=== PATIENT | female | born 1960 | race Caucasian/White ===

== ENCOUNTER → 2016-11-29 | Outpatient (CLI) | payer OTHER ==
[~2016-11-29] MED LIST: ALBUAER19 INH; ASPI81TA21 PO; ATV5 PO; CLX20 PO; CMDUNK PO; CYAN10005 PO; DICL1GEL28; DOXY100C PO; FURO-85 PO; GLC500 PO; METH-307 PO; TOPI100T20 PO; TRAM200T16 PO
--- NOTE | 2016-11-29 11:11 | DIAGNOSTIC IMAGING REPORT ---
MRI OF THE BRAIN WITHOUT CONTRAST CLINICAL HISTORY: Worsening headache. Migraine with aura COMPARISON STUDY: Noncontrast head CT dated 05/29/2011 FINDINGS: Sagittal T1, axial diffusion, proton density and T2 weighted axial, coronal FLAIR, and axial T1-weighted images were acquired. The patient was imaged under 0.7 [place] open MRI scanner. No intra or extra-axial mass lesions are visualized Axial diffusion-weighted images reveal no evidence of acute or subacute infarction. There is no evidence of ventricular dilatation. Proton density T2-weighted and FLAIR images reveal scattered foci of increased T2 signal within the white matter, likely on a small vessel basis. There are prominent bilateral perivascular spaces. There are no abnormal flow voids. The study is limited from a technical standpoint due to motion artifact. IMPRESSION: 1. Somewhat limited study from a technical standpoint 2. No evidence of acute or subacute infarction 3. No intracranial masses identified in this noncontrast study 4. Mild foci of increased T2 signal within the white matter likely on a small vessel basis Electronically signed by: Jimbo Lakhani M.D. 11/29/2016 11:09 AM Dictated Date/Time: 11/29/2016 11:06 AM
== END | disposition home or self-care (01) ==
LOC: C.OPENMRI 09:13
PROVIDERS: ATTEND Psychiatry & Neurology Neurology
DX: G43.109 Migraine with aura, not intractable, without status migrainosus (principal)

== ENCOUNTER → 2016-12-04 | Outpatient (CLI) | payer OTHER ==
[2016-12-04 10:08] LABS: BASO % 0.2 %; BASO ABS # 0.01 K/uL (0-0.2); COMPLETE YES; EOS % 2.7 %; HEMATOCRIT 38.6 % (37-47); IG% 0.2 %; LYMPH % 26.5 %; LYMPH ABS # 1.08 K/uL (1.2-3.4); MEAN CELL VOLUME 89.4 fL (80-100); MEAN CORPUSCULAR HEMOGLOBIN 28.9 pg (25-34); MEAN CORPUSCULAR HGB CONC 32.4 g/dl (32-36); MEAN PLATELET VOLUME 8.8 fL (7.4-10.4); MONO % 7.9 %; NEUT % 62.5 %; PLATELET COUNT 168 K/uL (130-400); RED BLOOD COUNT 4.32 M/uL (4.2-5.4); WHITE BLOOD COUNT 4.07 K/uL (4.8-10.8)
[2016-12-04 10:17] LABS: ESTIMATED AVERAGE GLUCOSE 111 mg/dl; HA1C FLAG Normal (Normal)
[2016-12-04 10:45] LABS: CALCIUM 9.3 mg/dl (8.5-10.1)
[2016-12-04 10:49] LABS: ALT/SGPT 35 U/L (12-78); BLOOD UREA NITROGEN 11 mg/dl (7-18); BUN/CREATININE RATIO 15.8 (10-20); CARBON DIOXIDE 28 mmol/L (21-32); CHLORIDE 105 mmol/L (98-107); CHOLESTEROL 181 mg/dl (0-200); CREATININE 0.69 mg/dl (0.60-1.20); GLUCOSE 110 mg/dl (70-99); POTASSIUM 4.1 mmol/L (3.5-5.1); SODIUM 141 mmol/L (136-145); TRIGLYCERIDES 132 mg/dl (0-150); VERY LOW DENSITY LIPOPROT CALC 26 mg/dl
[2016-12-04 10:58] LABS: ALB/GLOB RATIO 0.9 (0.9-2); ALKALINE PHOSPHATASE 113 U/L (45-117); AST/SGOT 18 U/L (15-37); CHOLESTEROL/HDL RATIO 3.7; FERRITIN 63.3 ng/ml (8.0-388.0); HDL CHOLESTEROL 49 mg/dl; LDL CHOLESTEROL CALCULATED 106 mg/dl
[2016-12-04 11:04] LABS: RATIO 25.7 mcg/mg (0-30.0)
== END | disposition home or self-care (01) ==
LOC: C.LAB 09:07
PROVIDERS: ATTEND Nurse Practitioner Family
DX: E11.9 Type 2 diabetes mellitus without complications (principal); E53.8 Deficiency of other specified B group vitamins; E66.01 Morbid (severe) obesity due to excess calories; E01.0 Iodine-deficiency related diffuse (endemic) goiter; D50.9 Iron deficiency anemia, unspecified; E55.9 Vitamin D deficiency, unspecified; R25.2 Cramp and spasm; Z13.220 Encounter for screening for lipoid disorders

== ENCOUNTER → 2017-11-07 | Outpatient (CLI) | payer OTHER ==
[2017-11-07 12:53] LABS: BASO % 0.1 %; BASO ABS # 0.01 K/uL (0-0.2); EOS % 2.5 %; EOS ABS # 0.17 K/uL (0-0.5); HEMATOCRIT 38.9 % (37-47); HEMOGLOBIN 12.9 g/dL (12.0-16.0); IG# 0.02 K/uL (0.00-0.02); LYMPH % 14.7 %; MEAN CELL VOLUME 88.6 fL (80-100); MEAN CORPUSCULAR HEMOGLOBIN 29.4 pg (25-34); MEAN CORPUSCULAR HGB CONC 33.2 g/dl (32-36); MEAN PLATELET VOLUME 8.7 fL (7.4-10.4); MONO % 5.4 %; MONO ABS # 0.37 K/uL (0.11-0.59); NEUT ABS # 5.24 K/uL (1.4-6.5); PLATELET COUNT 202 K/uL (130-400); RED CELL DISTRIBUTION WIDTH CV 14.8 % (11.5-14.5); RED CELL DISTRIBUTION WIDTH SD 47.6 fL (36.4-46.3); WHITE BLOOD COUNT 6.81 K/uL (4.8-10.8)
[2017-11-07 13:14] LABS: HEMOGLOBIN A1C 5.6 % (4.5-5.6)
[2017-11-07 13:31] LABS: ALBUMIN 3.5 gm/dl (3.4-5.0); ALT/SGPT 25 U/L (12-78); BLOOD UREA NITROGEN 10 mg/dl (7-18); CARBON DIOXIDE 32 mmol/L (21-32); CHOLESTEROL 170 mg/dl (0-200); CREATININE 0.84 mg/dl (0.60-1.20); GLUCOSE 101 mg/dl (70-99); POTASSIUM 4.7 mmol/L (3.5-5.1); SODIUM 136 mmol/L (136-145)
[2017-11-07 13:35] LABS: ALKALINE PHOSPHATASE 117 U/L (45-117); AST/SGOT 14 U/L (15-37); LDL CHOLESTEROL CALCULATED 98 mg/dl; TOTAL PROTEIN 7.7 gm/dl (6.4-8.2)
== END | disposition home or self-care (01) ==
LOC: C.LABBFT 09:43
PROVIDERS: ATTEND Nurse Practitioner Family
DX: I10 Essential (primary) hypertension (principal); E11.9 Type 2 diabetes mellitus without complications; E66.01 Morbid (severe) obesity due to excess calories; D50.9 Iron deficiency anemia, unspecified; E55.9 Vitamin D deficiency, unspecified

== ENCOUNTER 2021-06-01 18:47 | Inpatient (IN) ==
--- NOTE | 2021-06-01 20:12 | Emergency Department Note ---
Impression & Plan Open fracture, Ankle fracture, Ankle dislocation ED Provider Note NAME: CALVIN QUACH AGE: 60 SEX: F : 1960 ARRIVES VIA: Walk-In INFORMANT: Patient ED PROVIDER(S): Sascha Pa DO CHIEF COMPLAINT: Right ankle pain HPI: Patient is a morbidly obese 60-year-old female who presents the ER for right ankle pain. She had surgery performed on her right ankle about 3 weeks ago. Surgery was done by Dr. Patel. She believes when she was getting into the car she felt like her ankle moved and has been having tingling and numbness in her foot since then. She was in a cast per her own report which was removed at Dr. Patel's office today. They obtained x-rays and saw the dislocation in the open wound over the right lateral ankle. Dr. Patel called Dr. Desai as he is leaving town Dr. Desai was agreeable to see her and take her to the OR this week. She was referred in for admission. She denies any headache or change in vision. No chest pain or shortness of breath. No nausea vomiting or diarrhea. No other exacerbating or remitting factors. Pain is constant in that right ankle. ROS: See above HPI for pertinent positives & negatives. A total of 10 systems reviewed and were otherwise negative. PAST MEDICAL HISTORY:See Below PAST SURGICAL HISTORY:See Below FAMILY HISTORY:See Below SOCIAL HISTORY:See Below HOME MEDICATIONS:See Below ALLERGIES:See Below VITALS:See Below PHYSICAL EXAMINATION: GENERAL: Sitting up in bed, alert, well appearing, well nourished, no distress, non-toxic EYE EXAM: normal conjunctiva. PERRL and EOM's grossly intact. OROPHARYNX: mucous membranes are moist LUNGS: Clear to auscultation. Normal chest wall mechanics HEART: no murmurs, S1 normal and S2 normal ABDOMEN: abdomen soft, non-tender, normo-active bowel sounds, no masses, no rebound or guarding. UPPER EXTREMITIES: upper extremities are grossly normal. LOWER EXTREMITIES: No tenderness of the right hip or knee. Open wound over right lateral malleolus which tracks down to the bone with serous sanguinous drainage. Wounds over the medial ankle as well which are superficial. Ankle is rotated laterally and displaced. DPs intact. Able to wiggle toes. Diminished sensation in the right foot walking boot was in place but not supporting foot. NEURO EXAM: Normal sensorium, cranial nerves II-XII grossly intact, normal speech, no gross weakness of arms. MEDICAL DECISION MAKING: Patient is a 60-year-old female as discussed above referred in by orthopedics for the OR. IV was established blood work was obtained. Labs show no significant leukocytosis or anemia. BMP along with LFTs bilirubin was unremarkable. Covid was negative. Patient was sent in by Dr. Patel to be admitted to internal medicine to be taken to the OR by Dr. Desai likely later this week. Wounds were cleaned with Betadine and Xeroform gauze was placed over top. She was given IV Ancef. Discussed with Dr. Desai who is agreeable with t [facility] and will take the patient to the OR on Sunday. Foot was dislocated laterally and this was reduced by myself and splinted at bedside by myself. Patient tolerated this well. Discussed with Dr. Lowery admitted to internal medicine. She was given IV fentanyl. Triage Nursing notes reviewed. Limited review of prior medical records performed Vital Signs: reviewed and remarkable for no significant abnormalities Differential diagnosis: Fracture, subluxation, dislocation, contusion, ligamentous injury, neurovascular, compartment syndrome, rhabdomyolysis, as well as other pathologies. ER treatment provided: See below Diagnostics interpreted by me: Cardiac Monitoring: An order was placed for continuous cardiac monitoring. The monitor shows a rate of 70 with sinus rhythm. Laboratory studies: As stated above and show below. Imaging studies: X-ray of the right ankle per my read 2 view shows improved alignment of the talus with obvious fracture of the distal fibula present. Consultation(s): Discussed with Dr. Desai as stated above Discussed with Kalin Colmenares for further evaluation Procedures: PROCEDURE#1 Fracture/dislocation reduction: Location: Right ankle Patient was given IV fentanyl. Verbal consent was obtained. Traction was placed on the right ankle while pushing medially over the lateral malleolus. Significantly improved alignment was obtained. Patient tolerated the procedure well. Paresthesias were present prior to the procedure and following the procedure. Good cap refill. Procedure #2 Splint placement: Right ankle Splint: Posterior splint with a saddle Indication: Right fracture/dislocation of the right ankle Ortho-Glass splint was applied by the myself. Neurovascular status reassessed by myself status post splint placement and was intact. Critical Care: None Past Med/Surg History Medical History Anemia hx Anxiety Asthma Depression Endometriosis hx Esophageal reflux Hereditary coagulation factor deficiency Hx of migraines Hx of renal calculi Hx pulmonary embolism ~1990, on Xarelto Lupus anticoagulant disorder Morbid obesity with BMI of 60.0-69.9, adult Prothrombin gene mutation Pure hypercholesterolemia Per records, pt denies Sleep apnea Non-compliant with CPAP Vertigo hx Surgical History H/O wrist surgery History of colonoscopy History of cystoscopy with stent History of esophagogastroduodenoscopy (EGD) History of kidney surgery Hx of hysterectomy [place] and BSO Family History Sister Cancer Brain tumor Thyroid disease Father Myocardial infarction Heart disease Mother Thyroid disease Family/Other Hypertension Other Diabetes Gallbladder disease Lung disease Seizure Denies family history of Ovarian cancer Prostate cancer Breast cancer Colorectal cancer Social History Smoking Status: Never smoker Second Hand Exposure: Yes ( A CHILD); Hx Alcohol Use: No Hx Substance Use: No Preferred Language: Sudanese Communication Ability: Effective Visual Impairment: No Limitations Hearing Ability: Normal Consumer Relations Complaint Clerk Required: No Beliefs That Will Affect Care: None marital status: Current Living Situation: Spouse current occupational status: unemployed Other Information That Helps Us Care for You: No Feels Safe at Home: Yes Safety Concerns: Feels Safe At This Time Childhood Exposure to Second-Hand Smoke: Yes Dental Care, Regularly: Yes Physical Activity Frequency: 3-4 Times per Week Seatbelt Use: always Sunscreen Use: Yes Assistive Devices: Cane, CPAP, Glasses and Wheelchair Allergies Allergies Allergy/AdvReac Type Severity Reaction Status Date / Time iron AdvReac Unknown Does not Verified 06/01/21 20:47 tolerate oral (tolerates infusion) Home Meds Home Medications Medication Instructions Recorded Confirmed magnesium 250 mg tablet 250 mg PO QAM 02/24/19 06/01/21 multivitamin (Daily Multi-Vitamin) 1 tab PO QAM 02/24/19 06/01/21 cyanocobalamin (vitamin B-12) 1,000 mcg PO QAM tab 03/19/19 06/01/21 1,000 mcg tablet amitriptyline 25 mg tablet 50 mg PO HS 05/18/21 06/01/21 prochlorperazine maleate 10 mg 10 mg PO Q6H PRN 05/18/21 06/01/21 tablet (Compazine) propranolol 160 mg capsule,24 160 mg PO QAM 05/18/21 06/01/21 hr,extended release propranolol 60 mg capsule,24 60 mg PO QAM 05/18/21 06/01/21 hr,extended release rivaroxaban 20 mg tablet (Xarelto) 20 mg PO HS 05/18/21 06/01/21 Previous Rx's Medication Instructions Recorded cholecalciferol (vitamin D3) 1,250 50,000 units PO WEEKLY #12 cap 11/19/19 mcg (50,000 unit) capsule citalopram 40 mg tablet 40 mg PO QPM #90 tab 12/15/20 rimegepant 75 mg disintegrating 75 mg PO DAILY PRN #8 tab 02/28/21 tablet (Nurtec ODT) buspirone 10 mg tablet 10 mg PO BID #180 tab 04/26/21 methocarbamol 500 mg tablet 500 mg PO BID PRN #60 tab 05/12/21 lorazepam 0.5 mg tablet 0.5 mg PO TID PRN 14 Days #42 tab 05/18/21 oxycodone-acetaminophen 5 mg-325 1 tab PO Q6H PRN #20 tab 05/20/21 mg tablet (Percocet) hydroxyzine HCl 50 mg tablet 50 mg PO HS PRN #30 tab 06/01/21 Results & Data (ED) Vital Signs Vital Signs - 24 hr 06/01/21 18:58 06/01/21 20:48 Temperature 36.6 C Temperature Source Temporal Artery Scan Pulse Rate 78 Pulse Rate [Left] 64 Respiratory Rate 20 20 Respiratory Effort / Characteristics Non-Labored Spontaneous Respiratory Depth Normal Blood Pressure 126/82 Blood Pressure [Left Arm] 141/68 H Blood Pressure Mean 96 Blood Pressure Mean [Left Arm] 92 Pulse Oximetry 97 96 Oxygen Delivery Method Room Air Room Air Sepsis New/Unexplained Change in Mental Status N/A Sepsis Action Taken by Nursing No Action Required Laboratory Data Result diagrams: 06/01/21 20:42 06/01/21 20:42 Lab Results 06/01/21 06/01/21 06/01/21 Range/Units 20:42 20:42 20:42 WBC 10.74 (4.8-10.8) K/uL RBC 4.73 (4.2-5.4) M/uL Hgb 13.1 (12.0-16.0) g/dL Hct 40.3 (37-47) % MCV 85.2 (80-100) fL MCH 27.7 (25-34) pg MCHC 32.5 (32-36) g/dL RDW Std Deviation 46.3 (36.4-46.3) fL RDW Coeff of Moises 15.0 H (11.5-14.5) % Plt Count 251 (130-400) K/uL MPV 8.6 (7.4-10.4) fL Immature Gran % (Auto) 0.3 % Neut % (Auto) 84.7 % Lymph % (Auto) 8.0 % Hanson % (Auto) 5.9 % Eos % (Auto) 0.9 % Baso % (Auto) 0.2 % Neut # (Auto) 9.10 H (1.4-6.5) K/uL Lymph # (Auto) 0.86 L (1.2-3.4) K/uL Hanson # (Auto) 0.63 H (0.11-0.59) K/uL Eos # (Auto) 0.10 (0-0.5) K/uL Baso # (Auto) 0.02 (0-0.2) K/uL Immature Gran # (Auto) 0.03 H (0.00-0.02) K/uL Sodium 137 (136-145) mmol/L Potassium 4.0 (3.5-5.1) mmol/L Chloride 102 (98-107) mmol/L Carbon Dioxide 28 (21-32) mmol/L Anion Gap 6.0 (3-11) BUN 12 (7-18) mg/dl Creatinine 0.68 (0.6-1.2) mg/dl Est Cr Clr Drug Dosing Not Reportable Est GFR ( Amer) 111.0 ml/min Est GFR (Non-Af Amer) 95.7 ml/min BUN/Creatinine Ratio 18.1 (10-20) Glucose 134 H (70-99) mg/dl Calcium 9.8 (8.5-10.1) mg/dl Total Bilirubin 1.0 (0.2-1) mg/dl AST 10 L (15-37) U/L ALT 17 (12-78) U/L Alkaline Phosphatase 164 H (45-117) U/L Total Protein 7.3 (6.4-8.2) gm/dl Albumin 3.0 L (3.4-5.0) gm/dl Globulin 4.3 H (2.5-4.0) gm/dl Albumin/Globulin Ratio 0.7 L (0.9-2) COVID-19 Eval Order Covid19 at [facility] SARS-CoV-2 (PCR) (Negative) 06/01/21 Range/Units 20:42 WBC (4.8-10.8) K/uL RBC (4.2-5.4) M/uL Hgb (12.0-16.0) g/dL Hct (37-47) % MCV (80-100) fL MCH (25-34) pg MCHC (32-36) g/dL RDW Std Deviation (36.4-46.3) fL RDW Coeff of Moises (11.5-14.5) % Plt Count (130-400) K/uL MPV (7.4-10.4) fL Immature Gran % (Auto) % Neut % (Auto) % Lymph % (Auto) % Hanson % (Auto) % Eos % (Auto) % Baso % (Auto) % Neut # (Auto) (1.4-6.5) K/uL Lymph # (Auto) (1.2-3.4) K/uL Hanson # (Auto) (0.11-0.59) K/uL Eos # (Auto) (0-0.5) K/uL Baso # (Auto) (0-0.2) K/uL Immature Gran # (Auto) (0.00-0.02) K/uL Sodium (136-145) mmol/L Potassium (3.5-5.1) mmol/L Chloride (98-107) mmol/L Carbon Dioxide (21-32) mmol/L Anion Gap (3-11) BUN (7-18) mg/dl Creatinine (0.6-1.2) mg/dl Est Cr Clr Drug Dosing Est GFR ( Amer) ml/min Est GFR (Non-Af Amer) ml/min BUN/Creatinine Ratio (10-20) Glucose (70-99) mg/dl Calcium (8.5-10.1) mg/dl Total Bilirubin (0.2-1) mg/dl AST (15-37) U/L ALT (12-78) U/L Alkaline Phosphatase (45-117) U/L Total Protein (6.4-8.2) gm/dl Albumin (3.4-5.0) gm/dl Globulin (2.5-4.0) gm/dl Albumin/Globulin Ratio (0.9-2) COVID-19 Eval Order SARS-CoV-2 (PCR) NEGATIVE (Negative) Administered Medications Discontinued Medications Cefazolin Sodium (Cefazolin 2,000 Mg/15 Ml Iv Push) Confirm Administered Dose 2,000 mg IV .STK-MED ONE Stop: 06/01/21 22:07 Last Admin: 06/01/21 22:38 Dose: Not Given Documented by: [id number] Fentanyl Citrate (Fentanyl Citrate 100 Mcg/2 Ml Vial) 75 mcg IV NOW STA Stop: 06/01/21 20:57 Last Admin: 06/01/21 21:13 Dose: 75 mcg Documented by: [id number] Cefazolin Sodium 3,000 mg/ (Dextrose) 72.5 mls @ 145 mls/hr IV NOW STA Stop: 06/01/21 21:26 Last Admin: 06/01/21 22:38 Dose: 145 mls/hr Documented by: [id number] Discharge Plan Visit Data Chief Complaint: Ankle Pain Stated Complaint: ANKLE BREAK DESPITE PREV SURG, DR SRIVASTAVA ADMITTED ED Provider: Sascha Pa Discharge Problem: Open fracture, Ankle fracture, Ankle dislocation Patient Disposition: Admitted As Inpatient Discharge Instructions Interventions: ED Discharge Assessment Last Done: 06/01/21 22:58 Discharge Problem: Ankle fracture Qualifiers: Encounter type: initial encounter Fracture type: open Laterality: right Ankle dislocation Qualifiers: Encounter type: initial encounter Laterality: right Qualified Code(s): S93.04XA - Dislocation of right ankle joint, initial encounter
[2021-06-01 20:51] LABS: Basophils # (auto) 0.02 K/uL (0-0.2); Basophils % (auto) 0.2 %; Eosinophils % (auto) 0.9 %; Hematocrit (blood only) 40.3 % (37-47); Hemoglobin 13.1 g/dL (12.0-16.0); Immature Granulocytes # (auto) 0.03 K/uL (0.00-0.02); Immature Granulocytes % (auto) 0.3 %; Lymphocytes # (auto) 0.86 K/uL (1.2-3.4); Mean Corpuscular Hemoglobin 27.7 pg (25-34); Mean Corpuscular Hgb Conc 32.5 g/dL (32-36); Mean Corpuscular Volume 85.2 fL (80-100); Mean Platelet Volume 8.6 fL (7.4-10.4); Monocytes # (auto) 0.63 K/uL (0.11-0.59); Monocytes % (auto) 5.9 %; Neutrophils % (auto) 84.7 %; Platelet Count 251 K/uL (130-400); RDW Standard Deviation 46.3 fL (36.4-46.3); Red Blood Count 4.73 M/uL (4.2-5.4); White Blood Count 10.74 K/uL (4.8-10.8)
[2021-06-01] MEDS ORDERED: fentaNYL citrate 100 MCG/2 ML VIAL IV STA (20:56)
[2021-06-01] MEDS ORDERED: ceFAZolin 3,000 MG in DEXTROSE 5% 50 ML IV STA (20:57)
[2021-06-01 21:08] LABS: BUN Creatinine Ratio 18.1 (10-20); Blood Urea Nitrogen 12 mg/dl (7-18); Calcium 9.8 mg/dl (8.5-10.1); Carbon Dioxide 28 mmol/L (21-32); Chloride 102 mmol/L (98-107); Est GFR (Non-African American) 95.7 ml/min; Glucose 134 mg/dl (70-99); Sodium 137 mmol/L (136-145)
[2021-06-01 21:11] LABS: Alanine Aminotransferase 17 U/L (12-78); Albumin Globulin Ratio 0.7 (0.9-2); Alkaline Phosphatase 164 U/L (45-117); Aspartate Aminotransferase 10 U/L (15-37); Globulin 4.3 gm/dl (2.5-4.0); Total Protein 7.3 gm/dl (6.4-8.2)
[2021-06-01] MEDS ORDERED: ceFAZolin 2,000 MG/15 ML IV PUSH IV ONE (22:06)
--- NOTE | 2021-06-01 22:11 | History & Physical Report ---
Date of Service June 01, 2021 Assessment & Plan (1) Ankle dislocation: Plan: Mrs. Somers is a 60 yo woman who suffered a dislocation of her recently repaired right sided Maisonneuve ankle fracture. - splint placed by ED provider - ortho consult placed; Dr. Desai plans to take her to OR on Sunday06/03/21 - 1 dose of Ancef given due to open wound that tracked down to bone - stop ancef and start Ceftriaxone 2g daily (gram + and gram - coverage) and Daptomycin IV (MRSA coverage) - continue pain control with Tylenol for mild, oxycodone for moderate and Dilaudid for severe discomfort - velasquez catheter placed (ease of urination while non-weight bearing) (2) Hx pulmonary embolism: Plan: - associated lupus anticoagulant - on chronic anticoagulation with Xarelto - last dose of Xarelto was morning of 06/01/21 - hold further Xarelto dosing (3) LIMA (generalized anxiety disorder): Plan: - continue home buspar, citalopram, and hydroxyzine, and lorzepam (4) Migraine: Plan: - continue amitriptyline and propranolol for prophylaxis DVT ppx: Therapeutic on Xarelto at the time of admission Diet: Heart Healthy, carb consistent; will need to be NPO at midnight on 06/02/21 Dispo: Med/Surg Code: Full History of Present Illness Primary Care Provider: Bradley Muse III, SADE Mrs. Somers is a 60 yo woman with a PMHx of morbid obesity who recently u nderwent surgical repair of a right ankle fracture. She initially injured the right ankle on 05/13/21 at which time xrays showed evidence of deltoid ligament injury with medial clear space widening, consistent with a Maisonneuve fracture. She also had an associated proximal fibular fracture. She was operated on by Dr. Jus Patel on 05/20/21 - the procedure went well without complication. She reports bearing weight on the R ankle after the surgery (ie when stepping out of the car after returning home from the procedure) and feeling a small amount of discomfort and tingling in her R ankle. She assumed it was normal post-operative pain. During the recovery period, she has been at home - she spends most of the time in her recliner - she would bear weight on the right ankle when she should stand up out of the recliner. Her would bring a portable commode to her - so she did not need to take many steps. She also had a wheelchair and a rolling walker for assistance. She went to see Dr. Patel today for a routine post-operative follow up. Xrays were obtained at this visit and showed a dislocated open ankle fracture. She was directed to immediately come to the ED. A discussion was held with [place]. [place] [facility] - he intends to operate on her this Sunday. In the ED her vitals were normal. Her CBC and CMP were normal. She was given 3g of Ancef and 175 mcg of Fentanyl for pain control. A splint was placed over R LE. Allergies Allergy/AdvReac Type Severity Reaction Status Date / Time iron AdvReac Unknown Does not Verified 06/01/21 20:47 tolerate oral (tolerates infusion) Home Medications Medication Instructions Recorded Confirmed Type magnesium 250 mg tablet 250 mg PO QAM 02/24/19 06/01/21 History multivitamin (Daily Multi-Vitamin) 1 tab PO QAM 02/24/19 06/01/21 History cyanocobalamin (vitamin B-12) 1,000 mcg PO QAM tab 03/19/19 06/01/21 History 1,000 mcg tablet cholecalciferol (vitamin D3) 1,250 50,000 units PO WEEKLY #12 cap 11/19/19 06/01/21 Rx mcg (50,000 unit) capsule citalopram 40 mg tablet 40 mg PO QPM #90 tab 12/15/20 06/01/21 Rx rimegepant 75 mg disintegrating 75 mg PO DAILY PRN #8 tab 02/28/21 06/01/21 Rx tablet (Nurtec ODT) buspirone 10 mg tablet 10 mg PO BID #180 tab 04/26/21 06/01/21 Rx methocarbamol 500 mg tablet 500 mg PO BID PRN #60 tab 05/12/21 06/01/21 Rx amitriptyline 25 mg tablet 50 mg PO HS 05/18/21 06/01/21 History lorazepam 0.5 mg tablet 0.5 mg PO TID PRN 14 Days #42 tab 05/18/21 06/01/21 Rx prochlorperazine maleate 10 mg 10 mg PO Q6H PRN 05/18/21 06/01/21 History tablet (Compazine) propranolol 160 mg capsule,24 160 mg PO QAM 05/18/21 06/01/21 History hr,extended release propranolol 60 mg capsule,24 60 mg PO QAM 05/18/21 06/01/21 History hr,extended release rivaroxaban 20 mg tablet (Xarelto) 20 mg PO HS 05/18/21 06/01/21 History oxycodone-acetaminophen 5 mg-325 1 tab PO Q6H PRN #20 tab 05/20/21 06/01/21 Rx mg tablet (Percocet) hydroxyzine HCl 50 mg tablet 50 mg PO HS PRN #30 tab 06/01/21 06/01/21 Rx Past Med/Surg History Medical History Anemia hx Anxiety Asthma Depression Endometriosis hx Esophageal reflux Hereditary coagulation factor deficiency Hx of migraines Hx of renal calculi Hx pulmonary embolism ~1990, on Xarelto Lupus anticoagulant disorder Morbid obesity with BMI of 60.0-69.9, adult Prothrombin gene mutation Pure hypercholesterolemia Per records, pt denies Sleep apnea Non-compliant with CPAP Vertigo hx Surgical History H/O wrist surgery History of colonoscopy History of cystoscopy with stent History of esophagogastroduodenoscopy (EGD) History of kidney surgery Hx of hysterectomy [place] and BSO Family History Sister Cancer Brain tumor Thyroid disease Father Myocardial infarction Heart disease Mother Thyroid disease Family/Other Hypertension Other Diabetes Gallbladder disease Lung disease Seizure Denies family history of Ovarian cancer Prostate cancer Breast cancer Colorectal cancer Social History Smoking Status: Never smoker Second Hand Exposure: Yes ( A CHILD); Hx Alcohol Use: No Hx Substance Use: No Preferred Language: [place] Communication Ability: Effective Visual Impairment: No Limitations Hearing Ability: Normal Managed Care Analyst Required: No Beliefs That Will Affect Care: None marital status: Current Living Situation: Spouse current occupational status: unemployed How many Children do You have: 3 Other Information That Helps Us Care for You: No Feels Safe at Home: Yes Safety Concerns: Feels Safe At This Time Childhood Exposure to Second-Hand Smoke: Yes Dental Care, Regularly: Yes Physical Activity Frequency: 3-4 Times per Week Seatbelt Use: always Sunscreen Use: Yes Assistive Devices: None Review of Systems Review of Systems: All systems reviewed & are unremarkable except as noted in HPI & below Physical Exam Constitutional: WD/WN, vitals as above + morbidly obese and cooperative; no acute distress Eyes: + anicteric sclerae ENMT: external ear and nose normal, oropharynx normal Neck: trachea midline Respiratory: normal respiratory effort, lungs clear to auscultation Cardiovascular: RRR, no murmur, no edema Heart Sounds: normal S1 and normal S2 Gastrointestinal (Abdomen): normal bowel sounds, soft, nontender, no hepatosplenomegaly Musculoskeletal: Head/Neck/Chest: normocephalic and head atraumatic + R LE was wrapped with MARK bandages from the mid-foot to the enriquez (below the knee). Toes are pink in color. Sensation intact. Skin: no rashes, warm and dry Neurologic: moves all extremities Results & Data Results & Data ([facility]) Vital Signs (Past 12 Hours) Vital Signs Temp Pulse Resp BP Pulse Ox 06/01/21 18:58 36.6 C 78 20 126/82 97 Supervising Physician Co-Signing Physician Notes Attending addendum: I have supervised the medical residents activities, and agree with the H&P unless as otherwise noted. Assessment and Plan: Ankle dislocation- Continue splint by ED until assessed by orthopedic surgery Dr. Desai in the a.m. Plan for OR in 2 days Velasquez catheter History of PE- Lupus anticoagulant history Hold Xarelto Bridge with heparin IV pre and post surgery LIMA- Continue BuSpar, citalopram, hydroxyzine and lorazepam Remaining orders and notations as noted Resident Activity Tracking Resident Involvement: Resident Care Provided Care Provided: Adult Hospital Medicine (1) Ankle dislocation Encounter type: initial encounter Laterality: right Qualified Code(s): S93.04XA - Dislocation of right ankle joint, initial encounter
[2021-06-01] MEDS ORDERED: hydrOXYzine HCl 25 MG TAB PO PRN (23:23)
[2021-06-01] MEDS ORDERED: oxyCODONE/ACETAMINOPHEN 5mg/325mg TAB PO PRN (23:23)
[2021-06-01] MEDS ORDERED: POLYETHYLENE (MIRALAX) 17 GM PACK PO PRN (23:23)
[2021-06-01] MEDS ORDERED: ACETAMINOPHEN 325 MG TAB PO PRN (23:23)
[2021-06-01] MEDS ORDERED: PROCHLORPERAZINE MALEATE 10 MG TAB PO PRN (23:23)
[2021-06-01] MEDS ORDERED: ONDANSETRON INJ 2 MG/ML 2 ML VIAL IV PRN (23:23)
[2021-06-02] MEDS: busPIRone 5 MG TAB PO SCH ×3 (01:10→21:26)
[2021-06-02] MEDS: CITALOPRAM 40 MG TAB PO SCH (01:11)
[2021-06-02] MEDS: AMITRIPTYLINE HCL 50 MG TAB PO SCH (01:11)
[2021-06-02] MEDS ORDERED: HYDROmorphone INJ 0.5 MG/0.5 ML SYR IV PRN (01:25)
[2021-06-02] MEDS: DAPTOmycin 525 MG in SYRINGE 0 ML IV SCH (02:27)
[2021-06-02] MEDS ORDERED: cefTRIAXone SODIUM 2,000 MG in DEXTROSE 5% 50 ML IV SCH (06:00)
--- NOTE | 2021-06-02 06:41 | XRay Report ---
XR ankle RT 2V HISTORY: 60 years-old Female r ankle pain acute right ankle pain status post trauma COMPARISON: Right ankle radiographs 05/13/2021, 05/20/2021, 06/01/2021 TECHNIQUE: 2 views of the right ankle FINDINGS: Postoperative changes of prior distal tibial fibular syndesmotic repair. There is acute and displaced fracture of the distal fibula along the mid to inferior margin of the distal fibular hardware which demonstrates 1.6 cm lateral an 5 mm posterior displacement. There is pathologic widening of the dista l tibiofibular syndesmosis and medial clear space of the ankle. 8 mm linear bone fragment is noted me dial to the talar dome. Overlying casting material limits fine bony detail. There is improved alignme nt from the 06/01/2021 exam. Moderate degeneration of the midfoot. Frontal soft tissue swelling. Tibi otalar subluxation. IMPRESSION: 1. Status post recent distal tibial fibular syndesmotic repair. There is reinjury of the ankle with p athologic widening of the distal tibiofibular syndesmosis and medial clear space compatible with liga mentous disruption. There is mildly improved alignment compared to the study obtained at 10:32 AM. 2. Acute and displaced distal fibular fracture along the imaged inferior margin of the adjacent hardw are. 3. Subcentimeter linear bone fragment of the medial ankle. ACT 112: Negative or not required by law. The above report was generated using voice recognition software. It may contain grammatical, syntax o r spelling errors. Electronically signed by: Usman Yo M.D. 06/02/2021 6:39 AM
[2021-06-02] MEDS ORDERED: PIPERACILL/TAZOBAC CONSULT ACTIVE PRN (07:42)
--- NOTE | 2021-06-02 08:09 | Hospitalist Progress Note ---
Date of Service June 02, 2021 Assessment & Plan (1) Ankle dislocation: Plan: Mrs. Somers is a 60 yo woman who suffered a dislocation of her recently repaired right sided Maisonneuve ankle fracture. Ankle dislocation: - splint placed by ED provider - Ortho consult placed; Dr. Desai plans to take her to OR on Sunday06/03/21 - 1 dose of Ancef given due to open wound that tracked down to bone - then transitioned to Ceftriaxone 2g daily (gram + and gram - coverage) and Daptomycin IV (MRSA coverage) - Stopped ceftriaxone and start Zosyn to add on pseudomonas coverage in light of diabetic patient - Abx duration to be determined by level of fracture as seen in surgery - continue pain control with Tylenol for mild, oxycodone for moderate and Dilaudid for severe discomfort - velasquez catheter placed (ease of urination while non-weight bearing) Hx pulmonary embolism: - associated lupus anticoagulant - on chronic anticoagulation with Xarelto - last dose of Xarelto was morning of 06/01/21 - hold further Xarelto dosing until after surgery LIMA (generalized anxiety disorder): - continue home buspar, citalopram, and hydroxyzine, and lorazepam Migraine: - continue amitriptyline and propranolol for prophylaxis DVT ppx: Holding Xarelto prior to surgery Diet: Heart Healthy, carb consistent; NPO at midnight Dispo: Med/Surg Code: Full (2) Hx pulmonary embolism: (3) LIMA (generalized anxiety disorder): (4) Migraine: Admission and Anticipated Discharge Date Admission Date: June 01, 2021 Supervising Physician Co-Signing Physician Notes I personally examined the patient and verified all olmos points of history and exam, discussed case, and agree with decision making with Dr Manzanares Feeling okay. Awaiting surgeryOrtho input appreciated. Pain under decent control. Vitals noted, in general she is awake and alert pleasant no distress. HEENT normocephalic atraumatic mucous membranes are moist. Breathing unlabored no accessory muscle use good effort. Skin shows no rashes no pallor or icterus. N euro without focal deficits. Ankle wrapped Open fracture of anklefor orthopedic management. Continue empiric antibiotic coveragewe'll need to discuss with Ortho postop how long they feel coverage will need to continue. Morbid obesity with BMI of 68.2 definitely plays a role. xarelto on hold for now. type 1 or 2 open fracture per orthopedic assessment. Subjective No overnight events. She is comfortable in bed this AM. Reports being anxious about the surgery, asks if she is going to be okay. Reassured that this is not likely to be a complicated surgery. Explained that the most important thing to avoid complications is refraining from weight bearing on the foot after surgery. Review of Systems Review of Systems: per subjective Physical Exam Physical Exam: GENERAL: A&Ox3. NAD. CHEST/LUNGS: CTAB A/P. No crackles, wheezes, rales, rhonchi. HEART: RRR. No m/g/r. EXTREMITIES: No cyanosis, no clubbing, no edema. RLE wrapped with MARK bandage up to enriquez. SKIN: Warm and dry. No rashes or lesions. PSYCHIATRIC: Anxious affect, no SI, no pressured speech, no hallucinations NEUROLOGIC: No FND. CN II-XII grossly intact. Results & Data Results & Data ([facility]) Vital Signs (Past 12 Hours) Vital Signs Temp Pulse Pulse Resp BP Pulse Ox 06/02/21 07:35 36.5 C 76 20 129/66 93 06/01/21 23:59 36.6 C 70 22 145/75 H 96 06/01/21 22:16 68 20 135/75 95 06/01/21 20:48 64 20 141/68 H 96 Resident Activity Tracking Resident Involvement: Resident Care Provided Care Provided: Adult Hospital Medicine (1) Ankle dislocation Encounter type: initial encounter Laterality: right Qualified Code(s): S93.04XA - Dislocation of right ankle joint, initial encounter
[2021-06-02] MEDS ORDERED: PIPERACILLIN/TAZOBACTAM 4.5 GM in DEXTROSE 5% 100 ML IV ONE (08:30)
[2021-06-02] MEDS: MAGNESIUM OXIDE 400 MG TAB PO SCH (09:35)
[2021-06-02] MEDS: CYANOCOBALAMIN 500 MCG TABLET (VITAMIN B-12) PO SCH (09:35)
[2021-06-02] MEDS: PROPRANOLOL HCL 60 MG LA CAP PO SCH (09:35)
[2021-06-02] MEDS: PROPRANOLOL HCL LA 80 MG CAPCR PO SCH (09:35)
[2021-06-02] MEDS: LORazepam 0.5 MG TAB PO PRN ×2 (09:58→21:26)
--- NOTE | 2021-06-02 11:01 | Orthopedic Consultation ---
Date of Consultation June 02, 2021 Assessment & Plan (1) Type I or II open fracture dislocation of right ankle: Case discussed with Dr. Desai. Current plan is for application of external fixator with a Delta Frame with possible ORIF of distal fibular fx with placement of syndesmotic screw. Plan is for Sunday vs Sunday. Continue to hold Xarelto. Continue antibx due to open nature of fx. Pain management as written Will make NPO after midnight tonight. Supervising Physician Co-Signing Physician Notes Patient was seen and examined. Agree with care plan presented by Vj Lynn PA-C. We will attempt direct ORIF of fibula fracture ankle dislocation with fixation of the syndesmotic disruption with rigid fixation with possible augmentation with a external fixator with possible use of both internal and external fixation as necessary. Care plan discussed with and agreed upon with the patient. All potential risks, benefits, alternatives and rehab were discussed with the patient and she voiced understanding. History of Present Illness Reason for Consultation: Right ankle dislocation with distal fibular fracture Attending Physician: Sascha Gaxiola DO History of Present Illness Patient is a 60-year-old obese white female with past medical history of lupus and anticoagulant disorder on Xarelto with history of pulmonary embolus, history of anemia, anxiety, asthma, depression, endometriosis, GERD, migraine headache, renal calculi, GERD. She incurred a Maisonneuve injury on 05/17/2021. She underwent surgery for this by Dr. Jus Patel on 05/20/2021. She had a cast/splint placed on her right lower extremity. She was getting out of her car at one point and put more weight on her ankle than she should have. She felt a small pinch iand movement down at the ankle and then had some tingling and different sensation in the right ankle. She was seen in Dr. Patel's office yesterday and x-rays were taken once the cast was removed. It was found that she had a fracture dislocation of the ankle with an open component to her distal fibular fracture. The patient was sent to the emergency room where a closed reduction was attempted and splint was applied. Dr. Patel is not available for this weekend and discussed the case with Dr. Desai. Dr. Desai agreed to take on the case and the patient was admitted for further care. Currently she is in bed awake and alert. She has no complaints. She is anxious about the upcoming surgery and the ability to go home when the surgery has been completed. No other complaints at this time. Allergies Allergy/AdvReac Type Severity Reaction Status Date / Time iron AdvReac Unknown Does not Verified 06/01/21 20:47 tolerate oral (tolerates infusion) Home Medications Medication Instructions Recorded Confirmed Type magnesium 250 mg tablet 250 mg PO QAM 02/24/19 06/01/21 History multivitamin (Daily Multi-Vitamin) 1 tab PO QAM 02/24/19 06/01/21 History cyanocobalamin (vitamin B-12) 1,000 mcg PO QAM tab 03/19/19 06/01/21 History 1,000 mcg tablet cholecalciferol (vitamin D3) 1,250 50,000 units PO WEEKLY #12 cap 11/19/19 06/01/21 Rx mcg (50,000 unit) capsule citalopram 40 mg tablet 40 mg PO QPM #90 tab 12/15/20 06/01/21 Rx rimegepant 75 mg disintegrating 75 mg PO DAILY PRN #8 tab 02/28/21 06/01/21 Rx tablet (Nurtec ODT) buspirone 10 mg tablet 10 mg PO BID #180 tab 04/26/21 06/01/21 Rx methocarbamol 500 mg tablet 500 mg PO BID PRN #60 tab 05/12/21 06/01/21 Rx amitriptyline 25 mg tablet 50 mg PO HS 05/18/21 06/01/21 History lorazepam 0.5 mg tablet 0.5 mg PO TID PRN 14 Days #42 tab 05/18/21 06/01/21 Rx prochlorperazine maleate 10 mg 10 mg PO Q6H PRN 05/18/21 06/01/21 History tablet (Compazine) propranolol 160 mg capsule,24 160 mg PO QAM 05/18/21 06/01/21 History hr,extended release propranolol 60 mg capsule,24 60 mg PO QAM 05/18/21 06/01/21 History hr,extended release rivaroxaban 20 mg tablet (Xarelto) 20 mg PO HS 05/18/21 06/01/21 History oxycodone-acetaminophen 5 mg-325 1 tab PO Q6H PRN #20 tab 05/20/21 06/01/21 Rx mg tablet (Percocet) hydroxyzine HCl 50 mg tablet 50 mg PO HS PRN #30 tab 06/01/21 06/01/21 Rx Patient History Medical History Anemia hx Anxiety Asthma Depression Endometriosis hx Esophageal reflux Hereditary coagulation factor deficiency Hx of migraines Hx of renal calculi Hx pulmonary embolism ~1990, on Xarelto Lupus anticoagulant disorder Morbid obesity with BMI of 60.0-69.9, adult Prothrombin gene mutation Pure hypercholesterolemia Per records, pt denies Sleep apnea Non-compliant with CPAP Vertigo hx Surgical History H/O wrist surgery History of colonoscopy History of cystoscopy with stent History of esophagogastroduodenoscopy (EGD) History of kidney surgery Hx of hysterectomy [place] and BSO Family History Sister Cancer Brain tumor Thyroid disease Father Myocardial infarction Heart disease Mother Thyroid disease Family/Other Hypertension Other Diabetes Gallbladder disease Lung disease Seizure Denies family history of Ovarian cancer Prostate cancer Breast cancer Colorectal cancer Social History Smoking Status: Never smoker Second Hand Exposure: Yes ( A CHILD); Hx Alcohol Use: No Hx Substance Use: No Preferred Language: Nigerien Communication Ability: Effective Visual Impairment: No Limitations Hearing Ability: Normal 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 Beliefs That Will Affect Care: None marital status: Current Living Situation: Spouse current occupational status: unemployed How many Children do You have: 3 Other Information That Helps Us Care for You: No Feels Safe at Home: Yes Safety Concerns: Feels Safe At This Time Childhood Exposure to Second-Hand Smoke: Yes Dental Care, Regularly: Yes Physical Activity Frequency: 3-4 Times per Week Seatbelt Use: always Sunscreen Use: Yes Assistive Devices: None Physical Exam Physical Exam: Pt is a 60 YO obese WF, A/O x 3, NAD, pleasant and cooperative On exam of her RLE, she is in a posterior splint with medial /lateral buttress splints. Splint is left in place. Toes are pink and warm with good capillary refill < 2 seconds. Sensation is intact. Toes are mobile. Pt denies discomfort in the upper extremities or LLE. Pain in R ankle currently controlled. No gross motor or sensory loss noted at this time. Results & Data ([facility]) Vital Signs (Past 12 Hours) Vital Signs Temp Pulse Pulse Resp BP Pulse Ox 06/02/21 07:35 36.5 C 76 20 129/66 93 06/01/21 23:59 36.6 C 70 22 145/75 H 96 Laboratory Results Laboratory Results WBC 10.74 K/uL (4.8-10.8) 06/01/21 20:42 RBC 4.73 M/uL (4.2-5.4) 06/01/21 20:42 Hgb 13.1 g/dL (12.0-16.0) 06/01/21 20:42 Hct 40.3 % (37-47) 06/01/21 20:42 MCV 85.2 fL (80-100) 06/01/21 20:42 MCH 27.7 pg (25-34) 06/01/21 20:42 MCHC 32.5 g/dL (32-36) 06/01/21 20:42 RDW Std Deviation 46.3 fL (36.4-46.3) 06/01/21 20:42 RDW Coeff of Moises 15.0 % (11.5-14.5) H 06/01/21 20:42 Plt Count 251 K/uL (130-400) 06/01/21 20:42 MPV 8.6 fL (7.4-10.4) 06/01/21 20:42 Immature Gran % (Auto) 0.3 % 06/01/21 20:42 Neut % (Auto) 84.7 % 06/01/21 20:42 Lymph % (Auto) 8.0 % 06/01/21 20:42 Ciales % (Auto) 5.9 % 06/01/21 20:42 Eos % (Auto) 0.9 % 06/01/21 20:42 Baso % (Auto) 0.2 % 06/01/21 20:42 Neut # (Auto) 9.10 K/uL (1.4-6.5) H 06/01/21 20:42 Lymph # (Auto) 0.86 K/uL (1.2-3.4) L 06/01/21 20:42 Ciales # (Auto) 0.63 K/uL (0.11-0.59) H 06/01/21 20:42 Eos # (Auto) 0.10 K/uL (0-0.5) 06/01/21 20:42 Baso # (Auto) 0.02 K/uL (0-0.2) 06/01/21 20:42 Immature Gran # (Auto) 0.03 K/uL (0.00-0.02) H 06/01/21 20:42 Sodium 137 mmol/L (136-145) 06/01/21 20:42 Potassium 4.0 mmol/L (3.5-5.1) 06/01/21 20:42 Chloride 102 mmol/L (98-107) 06/01/21 20:42 Carbon Dioxide 28 mmol/L (21-32) 06/01/21 20:42 Anion Gap 6.0 (3-11) 06/01/21 20:42 BUN 12 mg/dl (7-18) 06/01/21 20:42 Creatinine 0.68 mg/dl (0.6-1.2) 06/01/21 20:42 Est Cr Clr Drug Dosing Not Reportable 06/01/21 20:42 Est GFR ( Amer) 111.0 ml/min 06/01/21 20:42 Est GFR (Non-Af Amer) 95.7 ml/min 06/01/21 20:42 BUN/Creatinine Ratio 18.1 (10-20) 06/01/21 20:42 Glucose 134 mg/dl (70-99) H 06/01/21 20:42 Calcium 9.8 mg/dl (8.5-10.1) 06/01/21 20:42 Total Bilirubin 1.0 mg/dl (0.2-1) 06/01/21 20:42 AST 10 U/L (15-37) L 06/01/21 20:42 ALT 17 U/L (12-78) 06/01/21 20:42 Alkaline Phosphatase 164 U/L (45-117) H 06/01/21 20:42 Total Protein 7.3 gm/dl (6.4-8.2) 06/01/21 20:42 Albumin 3.0 gm/dl (3.4-5.0) L 06/01/21 20:42 Globulin 4.3 gm/dl (2.5-4.0) H 06/01/21 20:42 Albumin/Globulin Ratio 0.7 (0.9-2) L 06/01/21 20:42 COVID-19 Eval Order Covid19 at [facility] 06/01/21 20:42 SARS-CoV-2 (PCR) NEGATIVE (Negative) 06/01/21 20:42 Impressions Ankle X-Ray 06/01/21 21:51 XR ankle RT 2V HISTORY: 60 years-old Female r ankle pain acute right ankle pain status post trauma COMPARISON: Right ankle radiographs 05/13/2021, 05/20/2021, 06/01/2021 TECHNIQUE: 2 views of the right ankle FINDINGS: Postoperative changes of prior distal tibial fibular syndesmotic repair. There is acute and displaced fracture of the distal fibula along the mid to inferior margin of the distal fibular hardware which demonstrates 1.6 cm lateral an 5 mm posterior displacement. There is pathologic widening of the distal tibiofibular syndesmosis and medial clear space of the ankle. 8 mm linear bone fragment is noted medial to the talar dome. Overlying casting material limits fine bony detail. There is improved alignment from the 06/01/2021 exam. Moderate degeneration of the midfoot. Frontal soft tissue swelling. Tibiotalar subluxation. IMPRESSION: 1. Status post recent distal tibial fibular syndesmotic repair. There is reinjury of the ankle with pathologic widening of the distal tibiofibular syndesmosis and medial clear space compatible with ligamentous disruption. There is mildly improved alignment compared to the study obtained at 10:32 AM. 2. Acute and displaced distal fibular fracture along the imaged inferior margin of the adjacent hardware. 3. Subcentimeter linear bone fragment of the medial ankle. ACT 112: Negative or not required by law. The above report was generated using voice recognition software. It may contain grammatical, syntax or spelling errors. Electronically signed by: Usman Yo M.D. 06/02/2021 6:39 AM
[2021-06-02] MEDS: PIPERACILLIN/TAZOBACTAM 4.5 GM in DEXTROSE 5% 100 ML IV SCH ×2 (14:44→21:26)
--- NOTE | 2021-06-02 16:35 | Anesthesiology Consultation ---
Date of Service June 02, 2021 Assessment & Plan (1) Encounter for pre-operative examination: Chart Review Chart Review: Acceptable Risk for Surgery and Patient NOT seen in Pre Admission Testing Consults Requested none History Surgery Operation Date: 06/03/21 12:05 Proposed Procedures p Right Ankle Application External Fixator - Joel Desai DO s Possible Open Reduction Internal Fixation Distal Fibula - Joel Desai DO Height/Weight Height: 4 ft 11 in Weight: 153.1 kg Allergies Allergy/AdvReac Type Severity Reaction Status Date / Time iron AdvReac Unknown Does not Verified 06/01/21 20:47 tolerate oral (tolerates infusion) Medications Home Medications Medication Instructions Recorded Confirmed Last Taken magnesium 250 mg tablet 250 mg PO QAM 02/24/19 06/01/21 05/19/21 08:00 multivitamin (Daily Multi-Vitamin) 1 tab PO QAM 02/24/19 06/01/21 05/19/21 08:00 cyanocobalamin (vitamin B-12) 1,000 mcg PO QAM tab 03/19/19 06/01/21 05/19/21 08:00 1,000 mcg tablet cholecalciferol (vitamin D3) 1,250 50,000 units PO WEEKLY #12 cap 11/19/19 06/01/21 05/17/21 08:00 mcg (50,000 unit) capsule citalopram 40 mg tablet 40 mg PO QPM #90 tab 12/15/20 06/01/21 05/19/21 17:00 rimegepant 75 mg disintegrating 75 mg PO DAILY PRN #8 tab 02/28/21 06/01/21 Unknown tablet ([facility] ODT) buspirone 10 mg tablet 10 mg PO BID #180 tab 04/26/21 06/01/21 05/20/21 06:20 methocarbamol 500 mg tablet 500 mg PO BID PRN #60 tab 05/12/21 06/01/21 05/18/21 15:00 amitriptyline 25 mg tablet 50 mg PO HS 05/18/21 06/01/21 05/19/21 17:00 lorazepam 0.5 mg tablet 0.5 mg PO TID PRN 14 Days #42 tab 05/18/21 06/01/21 05/20/21 06:20 prochlorperazine maleate 10 mg 10 mg PO Q6H PRN 05/18/21 06/01/21 Unknown tablet (Compazine) propranolol 160 mg capsule,24 160 mg PO QAM 05/18/21 06/01/21 05/20/21 06:20 hr,extended release propranolol 60 mg capsule,24 60 mg PO QAM 05/18/21 06/01/21 05/20/21 06:20 hr,extended release rivaroxaban 20 mg tablet (Xarelto) 20 mg PO HS 05/18/21 06/01/21 05/16/21 18:00 oxycodone-acetaminophen 5 mg-325 1 tab PO Q6H PRN #20 tab 05/20/21 06/01/21 Unk nown mg tablet (Percocet) hydroxyzine HCl 50 mg tablet 50 mg PO HS PRN #30 tab 06/01/21 06/01/21 Unknown Active Medications Generic Name Dose Route Start Last Admin Trade Name Freq PRN Reason Stop Dose Admin Amitriptyline HCl 50 mg 06/02/21 21:00 06/02/21 01:11 Amitriptyline Hcl 50 Mg Tab PO 07/02/21 20:59 50 mg HS GEENA Administration Buspirone HCl 10 mg 06/02/21 09:00 06/02/21 01:11 Buspirone 5 Mg Tab PO 07/02/21 08:59 10 mg BID GEENA Administration Citalopram Hydrobromide 40 mg 06/02/21 21:00 06/02/21 01:11 Citalopram 40 Mg Tab PO 07/02/21 20:59 40 mg QPM GEENA Administration Cyanocobalamin 1,000 mcg 06/02/21 09:00 06/02/21 09:35 Cyanocobalamin 500 Mcg Tablet (Vitamin B-12) PO 07/02/21 08:59 1,000 mcg QAM GEENA Administration Daptomycin 525 mg/ Syringe 10.5 mls @ 5.25 mls/min 06/02/21 02:00 06/02/21 02:27 IV 06/09/21 01:59 5.25 mls/min Q24H GEENA Administration Protocol Piperacillin Sod/Tazobactam 120 mls @ 30 mls/hr 06/02/21 14:00 06/02/21 14:44 Sod 4.5 gm/ Dextrose IV 06/09/21 13:59 30 mls/hr Q8H GEENA Administration Protocol Lorazepam 0.5 mg 06/01/21 23:23 06/02/21 09:58 Lorazepam 0.5 Mg Tab PO 07/01/21 23:22 0.5 mg TID PRN Administration anxiety Magnesium Oxide 400 mg 06/02/21 09:00 06/02/21 09:35 Magnesium Oxide 400 Mg Tab PO 07/02/21 08:59 400 mg QAM GEENA Administration Propranolol HCl 160 mg 06/02/21 09:00 06/02/21 09:35 Propranolol Hcl La 80 Mg Capcr PO 07/02/21 08:59 160 mg QAM GEENA Administration Propranolol HCl 60 mg 06/02/21 09:00 06/02/21 09:35 Propranolol Hcl 60 Mg La Cap PO 07/02/21 08:59 60 mg QAM GEENA Administration Past Medical History Medical History Anemia hx Anxiety Asthma Depression Endometriosis hx Esophageal reflux Hereditary coagulation factor deficiency Hx of migraines Hx of renal calculi Hx pulmonary embolism ~1990, on Xarelto Lupus anticoagulant disorder Morbid obesity with BMI of 60.0-69.9, adult Prothrombin gene mutation Pure hypercholesterolemia Per records, pt denies Sleep apnea Non-compliant with CPAP Vertigo hx Past Family History Family History Sister Cancer Brain tumor Thyroid disease Father Myocardial infarction Heart disease Mother Thyroid disease Family/Other Hypertension Other Diabetes Gallbladder disease Lung disease Seizure Denies family history of Ovarian cancer Prostate cancer Breast cancer Colorectal cancer Past Surgical History Surgical History H/O wrist surgery History of colonoscopy History of cystoscopy with stent History of esophagogastroduodenoscopy (EGD) History of kidney surgery Hx of hysterectomy [place] and BSO Social History Smoking Status: Never smoker Hx Alcohol Use: No Hx Substance Use: No Physical Exam Vital Signs Last Vital Signs Temp 97.7 F 06/02/21 07:35 Pulse 76 06/02/21 07:35 Resp 20 06/02/21 07:35 BP 129/66 06/02/21 07:35 Pulse Ox 93 06/02/21 07:35 Testing Laboratory Results 06/01/21 20:42 06/01/21 20:42 Electrocardiogram Date: 05/17/21 Findings: + NSR @ (71) Normal sinus rhythm Rightward axis Chest X-Ray Date: 05/17/21 Findings: + cardiomegaly
--- NOTE | 2021-06-02 17:32 | Billing Data ---
Date of Service June 02, 2021 Coding Level of Care Code 58108 Subseq Hosp Care Lvl 2
[2021-06-02] MEDS: MICONAZOLE NITRATE POWDER 43 GM EXT SCH (21:27)
[2021-06-03] MEDS: DAPTOmycin 525 MG in SYRINGE 0 ML IV SCH (01:21)
[2021-06-03] MEDS: PIPERACILLIN/TAZOBACTAM 4.5 GM in DEXTROSE 5% 100 ML IV SCH ×3 (06:15→21:16)
[2021-06-03] MEDS ORDERED: ROPIVACAINE 0.5% 5 MG/ML 30 ML VIAL ONE (06:30)
[2021-06-03] MEDS: CYANOCOBALAMIN 500 MCG TABLET (VITAMIN B-12) PO SCH (07:52)
[2021-06-03] MEDS: PROPRANOLOL HCL LA 80 MG CAPCR PO SCH (07:53)
[2021-06-03] MEDS: MAGNESIUM OXIDE 400 MG TAB PO SCH (07:53)
[2021-06-03] MEDS: busPIRone 5 MG TAB PO SCH ×2 (07:53→21:08)
[2021-06-03] MEDS: MICONAZOLE NITRATE POWDER 43 GM EXT SCH ×2 (07:54→21:13)
[2021-06-03] MEDS: PROPRANOLOL HCL 60 MG LA CAP PO SCH (07:54)
--- NOTE | 2021-06-03 09:55 | Hospitalist Progress Note ---
Date of Service June 03, 2021 Assessment & Plan (1) Ankle dislocation: Plan: Mrs. Somers is a 60 yo woman who suffered a dislocation of her recently repaired right sided Maisonneuve ankle fracture. Ankle dislocation: - splint placed by ED provider - Ortho consult placed; Dr. Desai plans to take her to OR today 06/03 - 1 dose of Ancef given due to open wound that tracked down to bone - then transitioned to Ceftriaxone 2g daily (gram + and gram - coverage) and Daptomycin IV (MRSA coverage) - Stopped ceftriaxone; continue Zosyn to add on pseudomonas coverage in light of diabetic patient - Abx duration to be determined by level of fracture as seen in surgery - continue pain control with Tylenol for mild, oxycodone for moderate and Dilaudid for severe discomfort - velasquez catheter placed (ease of urination while non-weight bearing) Hx pulmonary embolism: - on chronic anticoagulation with Xarelto - last dose of Xarelto was morning of 06/01/21 - hold further Xarelto dosing until after surgery LIMA (generalized anxiety disorder): - continue home buspar, citalopram, and hydroxyzine, and lorazepam Migraine: - continue amitriptyline and propranolol for prophylaxis DVT ppx: Holding Xarelto prior to surgery Diet: NPO for surgery Dispo: Med/Surg Code: Full (2) Hx pulmonary embolism: (3) LIMA (generalized anxiety disorder): (4) Migraine: Admission and Anticipated Discharge Date Admission Date: June 01, 2021 Supervising Physician Co-Signing Physician Notes I personally examined the patient and verified all olmos points of history and exam, discussed case, and agree with decision making with Dr Manzanares Feeling okay. 4 OR today. Anxious about thisasks if she can have 1 additional dose of Ativan prior to OR. Vitals noted, in general she is awake and alert pleasant no distress. HEENT normocephalic atraumatic mucous membranes are moist. Breathing unlabored no accessory muscle use good effort. Skin shows no rashes no pallor or icterus. Neuro without focal deficits. Ankle wrapped Open fracture of anklefor orthopedic management. Continue empiric antibiotic coveragewe'll need to discuss with Ortho postop how long they feel coverage will need to continue. Morbid obesity with BMI of 68.2 definitely plays a role. xarelto on hold for now. type 1 or 2 open fracture per orthopedic assessment. For OR today. Postop will discuss with Ortho for weightbearing/antibiotics/etc. Subjective No acute events overnight. Patient laying comfortably in bed. She mentions feeling anxious about the surgery today. But otherwise reports well-controlled pain, denies nausea, vomiting, abdominal pain, chest pain, shortness of breath, palpitations, or any other concerning symptoms at this time. Review of Systems Review of Systems: per subjective Physical Exam Physical Exam: GENERAL: A&Ox3. NAD. CHEST/LUNGS: CTAB A/P. No crackles, wheezes, rales, rhonchi. HEART: RRR. No m/g/r. EXTREMITIES: No cyanosis, no clubbing, no edema. RLE wrapped with MARK bandage up to enriquez. SKIN: Warm and dry. No rashes or lesions. PSYCHIATRIC: Anxious affect, no SI, no pressured speech, no hallucinations NEUROLOGIC: No FND. CN II-XII grossly intact. Results & Data Results & Data ([facility]) Vital Signs (Past 12 Hours) Vital Signs Temp Pulse Pulse Resp BP Pulse Ox 06/03/21 07:30 36.6 C 75 18 148/79 H 94 06/02/21 23:42 36.7 C 70 20 138/63 93 Resident Activity Tracking Resident Involvement: Resident Care Provided Care Provided: Adult Hospital Medicine (1) Ankle dislocation Encounter type: initial encounter Laterality: right Qualified Code(s): S93.04XA - Dislocation of right ankle joint, initial encounter
[2021-06-03] MEDS ORDERED: LORazepam 0.5 MG/1 ML VIAL IV STA (11:07)
[2021-06-03] MEDS ORDERED: fentaNYL citrate 100 MCG/2 ML VIAL ONE (12:22)
[2021-06-03] MEDS ORDERED: MIDAZOLAM HCL 1 MG/ML 2ML VIAL ONE (12:22)
[2021-06-03] MEDS ORDERED: BUPIVACAINE 0.5 % 5 MG/1 ML MPF 30ML VIAL ONE (13:07)
[2021-06-03] MEDS ORDERED: EPINEPHrine INJ 1 MG/ML AMP ONE (13:07)
[2021-06-03] MEDS ORDERED: ONDANSETRON INJ 2 MG/ML 2 ML VIAL IV PRN ×2 (13:19→17:18)
[2021-06-03] MEDS ORDERED: ATROPINE SULFATE 0.1 MG/ML 10ML SYR IV PRN (13:19)
[2021-06-03] MEDS ORDERED: ePHEDrine sulfate 50 MG/ML AMP IV PRN (13:19)
[2021-06-03] MEDS ORDERED: fentaNYL citrate 100 MCG/2 ML VIAL IV PRN (13:19)
--- NOTE | 2021-06-03 13:38 | History & Physical Bridge Note ---
Date of Service June 03, 2021 History & Physical Bridge Note I have examined the patient, reviewed the History & Physical and in the interval since the performance of the History & Physical I have noted the following changes of clinical significance: no changes noted
[2021-06-03] MEDS ORDERED: SUCCINYLCHOLINE CHLORIDE 20 MG/ML 10 ML VIAL IV ONE (14:01)
[2021-06-03] MEDS ORDERED: SUGAMMADEX SODIUM 200 MG/2 ML VIAL IV ONE (14:11)
[2021-06-03] MEDS ORDERED: PROPOFOL IV EMULSION 10 MG/ML 20 ML VIAL IV ONE (14:39)
[2021-06-03] MEDS ORDERED: LIDOCAINE 2% 2 ML VIAL/AMP(20MG/ML) INFIL ONE (14:39)
[2021-06-03] MEDS ORDERED: ROCURONIUM BROMIDE 10 MG/ML 5 ML VIAL IV ONE (14:39)
[2021-06-03] MEDS ORDERED: ONDANSETRON INJ 2 MG/ML 2 ML VIAL ONE (14:46)
--- NOTE | 2021-06-03 16:18 | Fluoroscopy Report ---
FL ankle RT 2V CLINICAL HISTORY: RT ORIF VS EX FIX TECHNIQUE: 4 views were obtained with the C-arm in the OR with the above procedure. Total fluoroscopy time was 517.4 seconds. Total skin dose was 14.68 mGy. Comparison: Comparison is made to right ankle radiographs 06/01/2021 FINDINGS/IMPRESSION: Operative reduction and internal fixation of previously noted right ankle fractu res. Please correlate with intraoperative fluoroscopy and operative report. ACT 112: Negative or not required by law. Electronically signed by: Nguyễn Solitario M.D. 06/03/2021 4:16 PM
--- NOTE | 2021-06-03 16:45 | Post Operative Brief Note ---
Immediate Post Op Note v1 Date of Surgery June 03, 2021 Pre & Post Diagnosis Operation Date: 06/03/21 12:05 Pre-Op Diagnosis: Right Ankle Fracture dislocation, syndesmotic disruption right ankle, retained broken hardware medial and lateral right ankle, lateral wound dehiscence ankle, medial ankle skin ulceration, morbid obesity, diabetic peripheral neuropathy, patient noncompliance Post-Op Diagnosis: Right Ankle Fracture dislocation, syndesmotic disruption right ankle, retained broken hardware medial and lateral right ankle, lateral wound dehiscence ankle, medial ankle skin ulceration, morbid obesity, diabetic peripheral neuropathy, patient noncompliance I identified the patient and participated in the time-out.: Yes Procedure Operation Date: 06/03/21 12:05 Actual Procedures s open reduction external fixation right ankle fracture dislocation, irrigation and Debridement of Right Lateral Ankle Wound Dehiscence(Right) - Joel Desai DO p Application of External Fixation right ankle fracture dislocation, open reduction percutaneous pinning lateral malleolus fracture, removal of Hardware medial and lateral ankle - Joel Desai DO Surgeon Joel Desai DO Seo Analyst Germain Greene PA-C Estimated Blood Loss 25 Findings Consistent with Post-Op Diagnosis Drains Velasquez Catheter (patient came to OR with velasquez catheter. re-secured to thigh before going to PACU) Anesthesia Type General Regional Complications none Disposition Accompanied Patient To Recovery: Yes Overlapping Procedure I was present for: the critical portions of procedure. I was immediately available: during the entire case.
[2021-06-03] MEDS ORDERED: ALUMINUM/MAGNESIUM SUSP 30 ML UDC PO PRN (17:18)
[2021-06-03] MEDS ORDERED: METOCLOPRAMIDE HCL INJ 5 MG/ML 2 ML VIAL IV PRN (17:18)
[2021-06-03] MEDS ORDERED: bisacodyL 10 MG SUPP PR PRN (17:18)
[2021-06-03] MEDS ORDERED: HYDROmorphone INJ 0.5 MG/0.5 ML SYR IV PRN (17:18)
[2021-06-03] MEDS ORDERED: NALOXONE HCL 0.4 MG/1 ML VIAL/CARP IV PRN (17:18)
[2021-06-03] MEDS ORDERED: NO NSAIDS SCH (17:18)
[2021-06-03] MEDS ORDERED: diphenhydrAMINE Capsule 25 MG CAP PO PRN (17:18)
[2021-06-03] MEDS ORDERED: MAGNESIUM HYDROXIDE SUSP 30 ML UDC PO PRN (17:18)
--- NOTE | 2021-06-03 17:30 | Operative Report (OR) ---
DATE OF PROCEDURE: 06/03/2021 PREOPERATIVE DIAGNOSES: 1. Right ankle fracture dislocation. 2. Syndesmotic disruption of the right ankle. 3. Retained broken hardware, medial and lateral right ankle. 4. Lateral wound dehiscence of the ankle. 5. Medial ankle skin ulceration. 6. Morbid obesity. 7. Diabetic peripheral neuropathy. 8. Patient noncompliance. POSTOPERATIVE DIAGNOSES: 1. Right ankle fracture dislocation. 2. Syndesmotic disruption of the right ankle. 3. Retained broken hardware, medial and lateral right ankle. 4. Lateral wound dehiscence of the ankle. 5. Medial ankle skin ulceration. 6. Morbid obesity. 7. Diabetic peripheral neuropathy. 8. Patient noncompliance. PROCEDURES: 1. Open reduction and external fixation of right ankle fracture dislocation. 2. Open reduction and percutaneous pinning of the lateral malleolus. 3. Irrigation and debridement of right lateral ankle wound dehiscence including skin, subcutaneous t issue, fascia, periosteum and bone. 4. Removal of retained hardware, medial and lateral ankle. SURGEON: Joel Desai DO. AUTOMOTIVE GENERAL SALES MANAGER: Germain Greene PA-C who was present for patient positioning, sterile prep and drape, management of retractors and instruments. He was present through the critical portions of the case i ncluding wound closure, application of sterile dressing and transport of the patient to recovery. ANESTHESIA: General, regional. SPECIMENS: Retained hardware, right ankle. DRAINS: None. COMPLICATIONS: None. BLOOD LOSS: 25 mL. PERTINENT HISTORY: This is a 60-year-old female who sustained an initial fracture subluxation of her right ankle with disruption of the syndesmosis and medial deltoid ligament injury. She was seen by Dr. Jus Patel who performed a syndesmotic repair. He instructed nonweightbearing; however, the p atient due to her body habitus and diabetic polyneuropathy was unable to maintain nonweightbearing. She was noncompliant. She felt at least 1-2 separate "pops" in the right ankle early on in her recov ruperto course, possibly even as early as on postoperative day 1. The patient continued to ambulate on t he lower extremities. She was seen by Dr. Patel's clinic, noted subluxation of the ankle grossly. Radiographs demonstrated a fracture dislocation of the ankle. She had fractured the fibula below th e level of the lateral plate. She dislodged the hardware and the ankle was subluxed, dislocated. Th e patient was then referred to [facility] where she was admitted. Dr. Patel contacted me and requested that I assume care for the patient, I agreed. The patient was then met, optimized for surgery by the medical service, and she was then scheduled fo r surgery as indicated after reduction and splinting by the Emergency Department physician. The dawson ent agreed to the procedure as indicated. All potential risks, benefits, complications, alternatives, rehab potential for incomplete relief of symptoms, need for further surgery, DVT, PE, , persistent pain, swelling, scarring, weakness, ne urovascular injury, wound complications, hardware failure, nonunion, malunion, bone fracture includin g loss of function, and possible need for further amputation in the future were discussed with the alex duffy. The patient decided to proceed with the procedure as indicated. DESCRIPTION OF PROCEDURE: The patient was administered a popliteal block, taken to the operative gretel te and placed supine on the operating table. After review of consent and identification of proper si te, the patient was anesthetized, LMA was placed. Tourniquet was placed high on the right thigh over cast padding. Right lower extremity was then sterilely prepped and draped in the usual fashion, elias vated and exsanguinated with an Esmarch bandage and tourniquet inflated to 350 mmHg. Next, the sutures placed laterally were removed. The open wound dehiscence measuring approximately 5 .5 cm in length with dehiscence of approximately 1 cm and a depth of approximately 1.5 cm was irrigat ed and carefully debrided with a 15 blade scalpel for sharp excisional debridement including skin, solis bcutaneous tissue, fascia down to the level of the periosteum and bone. The laterally placed plate a nd double TightRope configuration was noted to be disrupted. The suture knots were cut with a 15 kayla de scalpel. The buttons were removed x2 and the plate was removed laterally. The site was irrigated with pulse lavage with antibiotic. Next, attention was then directed toward the medial ankle. There was noted to be a large 3 cm diamete r medial ulceration from the chronic dislocation of the ankle. This was right over the site of the m edial ankle hardware. Therefore, incision had been made proximal to the optimal position to gently t unnel under the skin. Approximately, 2.5-3 cm incision was made medially proximal to the most optimal area for incision with a 15 blade scalpel. Careful dissection was performed with tenotomy scissors down to the level of the periosteum and gentle tunneling was performed with Angela clamps under live f luoroscopic assistance, at which point the suture buttons and sutures were removed from the medial as pect of the ankle. Next, the tissue was noted to be too badly compromised to tolerate a final fixation with internal huma dware. Therefore, a decision was made to abandon the internal hardware fixation and external fixator was adopted. Under live fluoroscopic assistance, a transcutaneous calcaneal traction pin was placed from lateral to medial under direct visualization with fluoroscopic assistance. Next, 2 stab incisio ns were made over the anterior proximal one-third of the tibia using an aiming guide and then 2 bone pins were placed in the more proximal tibia under live fluoroscopic assistance. This was then follow ed by placement of a Synthes delta frame using pin-to-bar clamps x4 and 2 carbon fiber rods placed us ing fluoroscopic assistance and manual traction and manipulation to maintain near anatomic alignment and stabilization of the ankle fracture dislocation in a near anatomic alignment. Once the pin-to-bar clamps were tightened, the fibula was then partially reduced and then tamped in p lace with bone tamp and mallet and then held under compression while a percutaneous 2.0 mm K-wire was placed from the tip of the lateral malleolus fashioned of an intramedullary fariba into the fibula to s tabilize the fibula in a near anatomic alignment under live fluoroscopic assistance using AP and late ral projections. Next, the pin was then bent, cut and then tamped underneath the surface of the tiss ue with a small bone tamp. Once this was completed, medial and lateral incisions were copiously irrigated with pulsatile lavage, 3 liters with Ancef additive. Full thickness tissue coverage was performed to the lateral wound deh iscence with combination of 2-0 nylon and 3-0 nylon sutures accordingly. The medial incision was lor sed using 3-0 nylon sutures. Next, a sterile compressive dressing was applied consisting of Xeroform gauze, sterile 4 x 4s, ABD padding, cast padding, and 2 Guillermo wraps. The tourniquet was released. Th e patient was awakened and taken to recovery in stable condition. Job ID: [id number]
--- NOTE | 2021-06-03 18:10 | Billing Data ---
Date of Service June 03, 2021 Coding Level of Care Code 06387 Subseq Hosp Care Lvl 2
[2021-06-03] MEDS: AMITRIPTYLINE HCL 50 MG TAB PO SCH (21:07)
[2021-06-03] MEDS: CITALOPRAM 40 MG TAB PO SCH (21:08)
[2021-06-03] MEDS: DOCUSATE SODIUM 100 MG CAP PO SCH (21:12)
[2021-06-03] MEDS: ACETAMINOPHEN 500 MG TAB PO SCH (21:15)
--- NOTE | 2021-06-03 21:33 | Billing Data ---
Date of Service June 03, 2021 Coding Level of Care Code 47388 Initial Inpt Care Lvl 2
[2021-06-03] MEDS: SENNA 8.6 MG TAB PO SCH (21:35)
[2021-06-03] MEDS: oxyCODONE HCL IR 5 MG TAB (IMMEDIATE RELEASE) PO PRN (21:35)
[2021-06-04] MEDS: DAPTOmycin 525 MG in SYRINGE 0 ML IV SCH (03:07)
[2021-06-04] MEDS: oxyCODONE HCL IR 5 MG TAB (IMMEDIATE RELEASE) PO PRN ×3 (04:43→20:40)
[2021-06-04] MEDS: ACETAMINOPHEN 500 MG TAB PO SCH ×3 (05:50→20:44)
[2021-06-04] MEDS: PIPERACILLIN/TAZOBACTAM 4.5 GM in DEXTROSE 5% 100 ML IV SCH ×3 (05:51→20:44)
[2021-06-04 08:04] LABS: Hematocrit (blood only) 38.4 % (37-47); Mean Corpuscular Hemoglobin 27.4 pg (25-34); Mean Corpuscular Hgb Conc 31.3 g/dL (32-36); Mean Corpuscular Volume 87.7 fL (80-100); Mean Platelet Volume 8.9 fL (7.4-10.4); Platelet Count 252 K/uL (130-400); RDW Coefficient of Variation 15.1 % (11.5-14.5); RDW Standard Deviation 47.8 fL (36.4-46.3); Red Blood Count 4.38 M/uL (4.2-5.4); White Blood Count 10.18 K/uL (4.8-10.8)
[2021-06-04 08:23] LABS: BUN Creatinine Ratio 15.4 (10-20); Calcium 9.2 mg/dl (8.5-10.1); Creatinine Clr Calc Pharmacy 112.6 ml/min; Est GFR (African American) 102.8 ml/min; Est GFR (Non-African American) 88.7 ml/min; Potassium 4.2 mmol/L (3.5-5.1)
--- NOTE | 2021-06-04 08:26 | Hospitalist Progress Note ---
Date of Service June 04, 2021 Assessment & Plan (1) Ankle dislocation: Plan: Mrs. Somers is a 60 yo woman who suffered a dislocation of her recently repaired right sided Maisonneuve ankle fracture. Ankle dislocation: - splint placed by ED provider - Ortho consult placed -- open reduction & external fixation performed 06/03 with irrigation & debridement of ankle wound - 1 dose of Ancef given due to open wound that tracked down to bone - then transitioned to Ceftriaxone 2g daily (gram + and gram - coverage) and Daptomycin IV (MRSA coverage) - Stopped ceftriaxone; continue Zosyn to add on pseudomonas coverage in diabetic patient - Abx duration to be determined depending on findings during surgery - continue pain control with Tylenol for mild, oxycodone for moderate and Dilaudid for severe discomfort - velasquez catheter placed (ease of urination while non-weight bearing) Hx pulmonary embolism: - on chronic anticoagulation with Xarelto - last dose of Xarelto was morning of 06/01/21 - Restart Xarelto 24 hours after surgery LIMA (generalized anxiety disorder): - continue home buspar, citalopram, and hydroxyzine, and lorazepam Migraine: - continue amitriptyline and propranolol for prophylaxis DVT ppx: Restart Xarelto 24 hours post surgery Diet: DM2, HH Dispo: Med/Surg Code: Full (2) Hx pulmonary embolism: (3) LIMA (generalized anxiety disorder): (4) Migraine: Admission and Anticipated Discharge Date Admission Date: June 01, 2021 Supervising Physician Co-Signing Physician Notes I personally examined the patient and verified all olmos points of history and exam, discussed case, and agree with decision making with Dr Manzanares Pain under reasonable control. Awaiting rehab. Vitals noted, in general she is awake and alert pleasant no distress. HEENT normocephalic atraumatic mucous membranes are moist. Breathing unlabored no accessory muscle use good effort. Skin shows no rashes no pallor or icterus. Neuro without focal deficits. Ankle wrapped Open fracture of anklenow postop, overall management per orthopedics. Continue empiric antibiotic coveragereached out to Ortho for their feeling of how long she will need antibiotics postop Morbid obesity with BMI of 68.2 definitely plays a role. xarelto on hold for now can likely resume soon type 1 or 2 open fracture per orthopedic assessment. Otherwise as above Subjective NO acute events overnight. Tolerated procedure well and pain is well-controlled. No fever, chills, n/v, abd pain, SOB, CP, diarrhea/constipation. Review of Systems Review of Systems: per subjective Physical Exam Physical Exam: GENERAL: A&Ox3. NAD. CHEST/LUNGS: CTAB A/P. No crackles, wheezes, rales, rhonchi. HEART: RRR. No m/g/r. EXTREMITIES: No cyanosis, no clubbing, no edema. RLE wrapped with external fixator in place. SKIN: Warm and dry. No rashes or lesions. PSYCHIATRIC: Anxious affect, no SI, no pressured speech, no hallucinations NEUROLOGIC: No FND. CN II-XII grossly intact. Results & Data Results & Data ([facility]) Vital Signs (Past 12 Hours) Vital Signs Temp Pulse Pulse Resp BP Pulse Ox 06/04/21 07:38 36.5 C 70 16 99/57 L 95 06/04/21 03:28 36.6 C 70 18 117/97 95 06/03/21 22:53 36.9 C 69 16 111/54 L 95 Resident Activity Tracking Resident Involvement: Resident Care Provided Care Provided: Adult Hospital Medicine (1) Ankle dislocation Encounter type: initial encounter Laterality: right Qualified Code(s): S93.04XA - Dislocation of right ankle joint, initial encounter
--- NOTE | 2021-06-04 08:50 | Orthopedic Progress Note ---
Date of Service June 04, 2021 Assessment & Plan (1) Type I or II open fracture dislocation of right ankle: Plan: 60 yo female stable POD #1 s/p I&D, open reduction perc pinning open right ankle fracture/dislocation with application ex fix 1. Med management- cont IV abx 2. DVT prophylaxis- may resume Eliquis 24 hours after surgery, SCDs 3. PT/OT 4. D/C planning- Admission and Anticipated Discharge Date Admission Date: June 01, 2021 Subjective Pt resting in bed, denies complaints, pain controlled Physical Exam Physical Exam: Dressing/ex fix in place, toes mobile Results & Data ([facility]) Vital Signs (Past 12 Hours) Vital Signs Temp Pulse Pulse Resp BP Pulse Ox 06/04/21 07:38 36.5 C 70 16 99/57 L 95 06/04/21 03:28 36.6 C 70 18 117/97 95 06/03/21 22:53 36.9 C 69 16 111/54 L 95 Laboratory Results 06/04/21 06/04/21 06/03/21 Range/Units 07:30 07:30 16:35 WBC 10.18 (4.8-10.8) K/uL RBC 4.38 (4.2-5.4) M/uL Hgb 12.0 (12.0-16.0) g/dL Hct 38.4 (37-47) % MCV 87.7 (80-100) fL MCH 27.4 (25-34) pg MCHC 31.3 L (32-36) g/dL RDW Std Deviation 47.8 H (36.4-46.3) fL RDW Coeff of Moises 15.1 H (11.5-14.5) % Plt Count 252 (130-400) K/uL MPV 8.9 (7.4-10.4) fL Sodium 136 (136-145) mmol/L Potassium 4.2 (3.5-5.1) mmol/L Chloride 102 (98-107) mmol/L Carbon Dioxide 30 (21-32) mmol/L Anion Gap 5.0 (3-11) BUN 11 (7-18) mg/dl Creatinine 0.74 (0.6-1.2) mg/dl Est Cr Clr Drug Dosing 112.6 ml/min Est GFR ( Amer) 102.8 ml/min Est GFR (Non-Af Amer) 88.7 ml/min BUN/Creatinine Ratio 15.4 (10-20) Glucose 108 H (70-99) mg/dl POC Glucose 115 H (70-99) mg/dl Calcium 9.2 (8.5-10.1) mg/dl
[2021-06-04] MEDS: DOCUSATE SODIUM 100 MG CAP PO SCH ×2 (10:22→20:43)
[2021-06-04] MEDS: busPIRone 5 MG TAB PO SCH ×2 (10:22→20:43)
[2021-06-04] MEDS: MAGNESIUM OXIDE 400 MG TAB PO SCH (10:22)
[2021-06-04] MEDS: CYANOCOBALAMIN 500 MCG TABLET (VITAMIN B-12) PO SCH (10:22)
[2021-06-04] MEDS: MICONAZOLE NITRATE POWDER 43 GM EXT SCH ×2 (10:23→21:17)
[2021-06-04] MEDS: MULTIVITAMIN TAB PO SCH (10:23)
[2021-06-04] MEDS: PROPRANOLOL HCL 60 MG LA CAP PO SCH (10:23)
[2021-06-04] MEDS: PROPRANOLOL HCL LA 80 MG CAPCR PO SCH (10:23)
--- NOTE | 2021-06-04 18:49 | Billing Data ---
Date of Service June 04, 2021 Coding Level of Care Code 02218 Subseq Hosp Care Lvl 2
[2021-06-04] MEDS: LORazepam 0.5 MG TAB PO PRN (20:40)
[2021-06-04] MEDS: AMITRIPTYLINE HCL 50 MG TAB PO SCH (20:43)
[2021-06-04] MEDS: CITALOPRAM 40 MG TAB PO SCH (20:43)
[2021-06-04] MEDS: SENNA 8.6 MG TAB PO SCH (20:44)
[2021-06-05] MEDS: DAPTOmycin 525 MG in SYRINGE 0 ML IV SCH (00:15)
[2021-06-05] MEDS: PIPERACILLIN/TAZOBACTAM 4.5 GM in DEXTROSE 5% 100 ML IV SCH (05:44)
[2021-06-05] MEDS: ACETAMINOPHEN 500 MG TAB PO SCH ×3 (05:44→21:15)
[2021-06-05 06:29] LABS: Basophils # (auto) 0.01 K/uL (0-0.2); Basophils % (auto) 0.1 %; Eosinophils # (auto) 0.28 K/uL (0-0.5); Eosinophils % (auto) 3.5 %; Hematocrit (blood only) 35.7 % (37-47); Hemoglobin 11.1 g/dL (12.0-16.0); Immature Granulocytes # (auto) 0.01 K/uL (0.00-0.02); Immature Granulocytes % (auto) 0.1 %; Lymphocytes # (auto) 0.96 K/uL (1.2-3.4); Lymphocytes % (auto) 11.9 %; Mean Corpuscular Hemoglobin 27.4 pg (25-34); Mean Corpuscular Hgb Conc 31.1 g/dL (32-36); Mean Corpuscular Volume 88.1 fL (80-100); Mean Platelet Volume 9.1 fL (7.4-10.4); Monocytes # (auto) 0.66 K/uL (0.11-0.59); Monocytes % (auto) 8.2 %; Neutrophils # (auto) 6.13 K/uL (1.4-6.5); Neutrophils % (auto) 76.2 %; Platelet Count 236 K/uL (130-400); RDW Coefficient of Variation 15.3 % (11.5-14.5); RDW Standard Deviation 48.9 fL (36.4-46.3); Red Blood Count 4.05 M/uL (4.2-5.4); White Blood Count 8.05 K/uL (4.8-10.8)
[2021-06-05 07:03] LABS: BUN Creatinine Ratio 12.9 (10-20); Calcium 9.2 mg/dl (8.5-10.1); Creatinine Clr Calc Pharmacy 126.3 ml/min; Est GFR (African American) 112.1 ml/min; Est GFR (Non-African American) 96.7 ml/min; Potassium 4.1 mmol/L (3.5-5.1)
--- NOTE | 2021-06-05 08:14 | Hospitalist Progress Note ---
Date of Service June 05, 2021 Assessment & Plan (1) Ankle dislocation: Plan: Mrs. Somers is a 60 yo woman who suffered a dislocation of her recently repaired right sided Maisonneuve ankle fracture. Ankle dislocation: - splint placed by ED provider - Ortho consult placed -- open reduction & external fixation performed 06/03 with irrigation & debridement of ankle wound - 1 dose of Ancef given due to open wound that tracked down to bone - then transitioned to Ceftriaxone 2g daily (gram + and gram - coverage) and Daptomycin IV (MRSA coverage) - Stopped ceftriaxone; stop Zosyn - Transition to oral doxycycline plus keflex for full Gram-positive coverage, less concern at this time for Pseudomonas risk -- can consider coverage if any signs of infection - Plan duration for 10-14 days after surgery (06/03/21) - continue pain control with Tylenol for mild, oxycodone for moderate and Dilaudid for severe discomfort - velasquez catheter placed (ease of urination while non-weight bearing) - PT/OT consulted -- recs for inpt vs SNF, CM to assist in placement Hx pulmonary embolism: - on chronic anticoagulation with Xarelto - last dose of Xarelto was morning of 06/01/21 - Restart Xarelto 24 hours after surgery LIMA (generalized anxiety disorder): - continue home buspar, citalopram, and hydroxyzine, and lorazepam Migraine: - continue amitriptyline and propranolol for prophylaxis DVT ppx: Anticoagulated on Xarelto Diet: DM2, HH Dispo: Med/Surg Code: Full (2) Hx pulmonary embolism: (3) LIMA (generalized anxiety disorder): (4) Migraine: Admission and Anticipated Discharge Date Admission Date: June 01, 2021 Supervising Physician Co-Signing Physician Notes I personally examined the patient and verified all olmos points of history and exam, discussed case, and agree with decision making with Dr Manzo doing well overall, pain overall controlled. anticipates placement. Vitals noted, in general she is awake and alert pleasant no distress. HEENT normocephalic atraumatic mucous membranes are moist. Breathing unlabored no accessory muscle use good effort. Skin shows no rashes no pallor or icterus. Neuro without focal deficits. Ankle wrapped Open fracture of anklenow postop, overall management per orthopedics. change abx to just staph/strep coverage after dr manzo's discussions with orthopedics. Morbid obesity with BMI of 68.2 definitely plays a role. resume xarelto. type 1 or 2 open fracture per orthopedic assessment. Otherwise as above stable for placement and outpt f/u once available Subjective No acute events overnight. Patient reports no significant pain this morning. Denies fever, chills, nausea, vomiting, abdominal pain, chest pain, shortness breath, palpitations, headache. Review of Systems Review of Systems: per subjective Physical Exam Physical Exam: GENERAL: A&Ox3. NAD. CHEST/LUNGS: CTAB A/P. No crackles, wheezes, rales, rhonchi. HEART: RRR. No m/g/r. EXTREMITIES: No cyanosis, no clubbing, no edema. RLE wrapped with external fixator in place, bandages c/d/i. SKIN: Warm and dry. No rashes or lesions. PSYCHIATRIC: Anxious affect, no SI, no pressured speech, no hallucinations NEUROLOGIC: No FND. CN II-XII grossly intact. Results & Data Results & Data ([facility]) Vital Signs (Past 12 Hours) Vital Signs Temp Pulse Resp BP BP Pulse Ox 06/05/21 07:50 36.7 C 82 16 149/73 H 94 06/04/21 22:33 36.6 C 71 16 104/54 L 97 Resident Activity Tracking Resident Involvement: Resident Care Provided Care Provided: Adult Hospital Medicine (1) Ankle dislocation Encounter type: initial encounter Laterality: right Qualified Code(s): S93.04XA - Dislocation of right ankle joint, initial encounter
[2021-06-05] MEDS: MAGNESIUM OXIDE 400 MG TAB PO SCH (08:58)
[2021-06-05] MEDS: CYANOCOBALAMIN 500 MCG TABLET (VITAMIN B-12) PO SCH (08:58)
[2021-06-05] MEDS: busPIRone 5 MG TAB PO SCH ×2 (08:58→21:15)
[2021-06-05] MEDS: MULTIVITAMIN TAB PO SCH (08:58)
[2021-06-05] MEDS: DOCUSATE SODIUM 100 MG CAP PO SCH ×2 (08:58→21:15)
[2021-06-05] MEDS: PROPRANOLOL HCL 60 MG LA CAP PO SCH (08:58)
[2021-06-05] MEDS: MICONAZOLE NITRATE POWDER 43 GM EXT SCH ×2 (08:58→21:13)
[2021-06-05] MEDS: PROPRANOLOL HCL LA 80 MG CAPCR PO SCH (08:59)
--- NOTE | 2021-06-05 09:11 | Orthopedic Progress Note ---
Date of Service June 05, 2021 Assessment & Plan (1) Type I or II open fracture dislocation of right ankle: Plan: 60 yo female stable POD #2 s/p right ankle removal hardware, I&D, perc pinning lateral malleolus, application ex fix s/p recent open ankle fx/dislocation 1. Med management- IV abx 2. DVT prophylaxis- restart xarelto per medicine, SCDs 3. PT/OT 4. D/C planning- d/c when stable per medicine, f/u with Dr Desai ~ 2 weeks, every other day dressing changes, switch to po abx? Admission and Anticipated Discharge Date Admission Date: June 01, 2021 Subjective Pt resting in bed, denies complaints, pain controlled Physical Exam Physical Exam: Dressing right ankle d/c'd, ex fix pin sites benign, lateral and medial wounds without significant drainage of erythema, medial pressure sore noted likely from ankle dislocation, new dressing applied Results & Data ([facility]) Vital Signs (Past 12 Hours) Vital Signs Temp Pulse Resp BP BP Pulse Ox 06/05/21 07:50 36.7 C 82 16 149/73 H 94 06/04/21 22:33 36.6 C 71 16 104/54 L 97 Laboratory Results 06/05/21 06/05/21 Range/Units 05:33 05:33 WBC 8.05 (4.8-10.8) K/uL RBC 4.05 L (4.2-5.4) M/uL Hgb 11.1 L (12.0-16.0) g/dL Hct 35.7 L (37-47) % MCV 88.1 (80-100) fL MCH 27.4 (25-34) pg MCHC 31.1 L (32-36) g/dL RDW Std Deviation 48.9 H (36.4-46.3) fL RDW Coeff of Moises 15.3 H (11.5-14.5) % Plt Count 236 (130-400) K/uL MPV 9.1 (7.4-10.4) fL Immature Gran % (Auto) 0.1 % Neut % (Auto) 76.2 % Lymph % (Auto) 11.9 % [place] % (Auto) 8.2 % Eos % (Auto) 3.5 % Baso % (Auto) 0.1 % Neut # (Auto) 6.13 (1.4-6.5) K/uL Lymph # (Auto) 0.96 L (1.2-3.4) K/uL [place] # (Auto) 0.66 H (0.11-0.59) K/uL Eos # (Auto) 0.28 (0-0.5) K/uL Baso # (Auto) 0.01 (0-0.2) K/uL Immature Gran # (Auto) 0.01 (0.00-0.02) K/uL Sodium 136 (136-145) mmol/L Potassium 4.1 (3.5-5.1) mmol/L Chloride 99 (98-107) mmol/L Carbon Dioxide 37 H (21-32) mmol/L Anion Gap 0 L (3-11) BUN 9 (7-18) mg/dl Creatinine 0.66 (0.6-1.2) mg/dl Est Cr Clr Drug Dosing 126.3 ml/min Est GFR ( Amer) 112.1 ml/min Est GFR (Non-Af Amer) 96.7 ml/min BUN/Creatinine Ratio 12.9 (10-20) Glucose 99 (70-99) mg/dl Calcium 9.2 (8.5-10.1) mg/dl
[2021-06-05] MEDS: cephALEXin 500 MG CAP PO SCH ×3 (12:27→21:13)
--- NOTE | 2021-06-05 16:09 | Billing Data ---
Date of Service June 05, 2021 Coding Level of Care Code 55235 Subseq Hosp Care Lvl 2
[2021-06-05] MEDS: LORazepam 0.5 MG TAB PO PRN (21:13)
[2021-06-05] MEDS: CITALOPRAM 40 MG TAB PO SCH (21:14)
[2021-06-05] MEDS: AMITRIPTYLINE HCL 50 MG TAB PO SCH (21:14)
[2021-06-05] MEDS: SENNA 8.6 MG TAB PO SCH (21:14)
[2021-06-05] MEDS: DOXYCYCLINE HYCLATE 100 MG CAP PO SCH (21:15)
[2021-06-05] MEDS: RIVAROXABAN 20 MG TAB PO SCH (21:16)
[2021-06-06] MEDS: ACETAMINOPHEN 500 MG TAB PO SCH ×3 (05:25→20:29)
[2021-06-06 06:07] LABS: Basophils # (auto) 0.01 K/uL (0-0.2); Basophils % (auto) 0.1 %; Eosinophils # (auto) 0.24 K/uL (0-0.5); Eosinophils % (auto) 3.5 %; Hemoglobin 11.2 g/dL (12.0-16.0); Immature Granulocytes # (auto) 0.02 K/uL (0.00-0.02); Immature Granulocytes % (auto) 0.3 %; Lymphocytes # (auto) 0.76 K/uL (1.2-3.4); Lymphocytes % (auto) 11.2 %; Mean Corpuscular Hemoglobin 27.3 pg (25-34); Mean Corpuscular Hgb Conc 31.1 g/dL (32-36); Mean Corpuscular Volume 87.8 fL (80-100); Mean Platelet Volume 8.5 fL (7.4-10.4); Monocytes # (auto) 0.44 K/uL (0.11-0.59); Monocytes % (auto) 6.5 %; Neutrophils # (auto) 5.34 K/uL (1.4-6.5); Neutrophils % (auto) 78.4 %; Platelet Count 198 K/uL (130-400); RDW Coefficient of Variation 15.3 % (11.5-14.5); RDW Standard Deviation 48.5 fL (36.4-46.3); White Blood Count 6.81 K/uL (4.8-10.8)
[2021-06-06 06:43] LABS: BUN Creatinine Ratio 12.3 (10-20); Calcium 9.4 mg/dl (8.5-10.1); Creatinine Clr Calc Pharmacy 136.6 ml/min; Est GFR (Non-African American) 99.2 ml/min; Magnesium 2.3 mg/dl (1.8-2.4); Potassium 4.2 mmol/L (3.5-5.1)
[2021-06-06 06:44] LABS: Phosphorus 3.9 mg/dl (2.5-4.9)
--- NOTE | 2021-06-06 08:15 | Hospitalist Progress Note ---
Date of Service June 06, 2021 Assessment & Plan (1) Ankle dislocation: Plan: Mrs. Somers is a 60 yo woman who suffered a dislocation of her recently repaired right sided Maisonneuve ankle fracture. Ankle dislocation: - splint placed by ED provider - Ortho consult placed -- open reduction & external fixation performed 06/03 with irrigation & debridement of ankle wound - 1 dose of Ancef given due to open wound that tracked down to bone - then transitioned to Ceftriaxone 2g daily (gram + and gram - coverage) and Daptomycin IV (MRSA coverage) - Stopped ceftriaxone; stop Zosyn - Transition to oral doxycycline plus keflex for full Gram-positive coverage, less concern at this time for Pseudomonas risk -- can consider coverage if any signs of infection - Plan duration for 10-14 days after surgery (06/03/21) - continue pain control with Tylenol for mild, oxycodone for moderate and Dilaudid for severe discomfort - velasquez catheter placed (ease of urination while non-weight bearing) - PT/OT consulted -- recs for inpt vs SNF, CM assisting with placement Hx pulmonary embolism: - on chronic anticoagulation with Xarelto - Xarelto held prior to surgery, restarted on 06/05/21 LIMA (generalized anxiety disorder): - continue home buspar, citalopram, and hydroxyzine, and lorazepam Migraine: - continue amitriptyline and propranolol for prophylaxis DVT ppx: Anticoagulated on Xarelto Diet: DM2, HH Dispo: Med/Surg Code: Full (2) Hx pulmonary embolism: (3) LIMA (generalized anxiety disorder): (4) Migraine: Admission and Anticipated Discharge Date Admission Date: June 01, 2021 Subjective Patient seen and evaluated at bedside this morning. No acute events overnight. Patient feels well today and has no complaints or concerns. Patient denies CP, SOB, abdominal pain, nausea, vomiting, lightheadedness, dizziness, and diarrhea. Review of Systems Review of Systems: See HPI Physical Exam Physical Exam: Constitutional: well-appearing, no acute distress CV: regular rhythm, no murmur appreciated, extremities well-perfused, no LE edema Resp: CTABL, no wheezes/rales/rhonchi appreciated, no increased work of breathing MSK: right ankle wrapped Skin: warm, dry, no rash appreciated Neuro: AOx4, no focal neurological deficits appreciated Results & Data Results & Data ([facility]) Vital Signs (Past 12 Hours) Vital Signs Temp Pulse Resp BP Pulse Ox 06/05/21 22:54 36.5 C 67 14 121/72 98 Resident Activity Tracking Resident Involvement: Resident Care Provided Care Provided: Adult Hospital Medicine (1) Ankle dislocation Encounter type: initial encounter Laterality: right Qualified Code(s): S93.04XA - Dislocation of right ankle joint, initial encounter
[2021-06-06] MEDS: PROPRANOLOL HCL 60 MG LA CAP PO SCH (09:32)
[2021-06-06] MEDS: MULTIVITAMIN TAB PO SCH (09:33)
[2021-06-06] MEDS: CYANOCOBALAMIN 500 MCG TABLET (VITAMIN B-12) PO SCH (09:33)
[2021-06-06] MEDS: DOCUSATE SODIUM 100 MG CAP PO SCH ×2 (09:33→20:26)
[2021-06-06] MEDS: PROPRANOLOL HCL LA 80 MG CAPCR PO SCH (09:33)
[2021-06-06] MEDS: cephALEXin 500 MG CAP PO SCH ×4 (09:33→20:24)
[2021-06-06] MEDS: busPIRone 5 MG TAB PO SCH ×2 (09:33→20:23)
[2021-06-06] MEDS: DOXYCYCLINE HYCLATE 100 MG CAP PO SCH ×2 (09:33→20:26)
[2021-06-06] MEDS: MICONAZOLE NITRATE POWDER 43 GM EXT SCH ×2 (10:03→20:32)
[2021-06-06] MEDS: MAGNESIUM OXIDE 400 MG TAB PO SCH (12:32)
[2021-06-06] MEDS: AMITRIPTYLINE HCL 50 MG TAB PO SCH (20:22)
[2021-06-06] MEDS: CITALOPRAM 40 MG TAB PO SCH (20:25)
[2021-06-06] MEDS: SENNA 8.6 MG TAB PO SCH (20:28)
[2021-06-06] MEDS: RIVAROXABAN 20 MG TAB PO SCH (20:28)
[2021-06-06] MEDS: LORazepam 0.5 MG TAB PO PRN (20:43)
[2021-06-07] MEDS: ACETAMINOPHEN 500 MG TAB PO SCH ×3 (05:41→21:12)
[2021-06-07 06:29] LABS: Basophils # (auto) 0.02 K/uL (0-0.2); Basophils % (auto) 0.3 %; Eosinophils # (auto) 0.21 K/uL (0-0.5); Eosinophils % (auto) 3.2 %; Hematocrit (blood only) 36.4 % (37-47); Hemoglobin 11.4 g/dL (12.0-16.0); Immature Granulocytes # (auto) 0.01 K/uL (0.00-0.02); Immature Granulocytes % (auto) 0.2 %; Lymphocytes # (auto) 0.81 K/uL (1.2-3.4); Lymphocytes % (auto) 12.2 %; Mean Corpuscular Hemoglobin 27.3 pg (25-34); Mean Corpuscular Hgb Conc 31.3 g/dL (32-36); Mean Corpuscular Volume 87.1 fL (80-100); Monocytes # (auto) 0.44 K/uL (0.11-0.59); Monocytes % (auto) 6.6 %; Neutrophils # (auto) 5.13 K/uL (1.4-6.5); Neutrophils % (auto) 77.5 %; Platelet Count 220 K/uL (130-400); RDW Coefficient of Variation 15.1 % (11.5-14.5); RDW Standard Deviation 48.4 fL (36.4-46.3); Red Blood Count 4.18 M/uL (4.2-5.4); White Blood Count 6.62 K/uL (4.8-10.8)
[2021-06-07] MEDS: busPIRone 5 MG TAB PO SCH ×3 (08:02→21:11)
[2021-06-07] MEDS: cephALEXin 500 MG CAP PO SCH ×4 (08:03→21:11)
[2021-06-07] MEDS: CYANOCOBALAMIN 500 MCG TABLET (VITAMIN B-12) PO SCH (08:03)
[2021-06-07] MEDS: DOCUSATE SODIUM 100 MG CAP PO SCH ×2 (08:03→21:11)
[2021-06-07] MEDS: DOXYCYCLINE HYCLATE 100 MG CAP PO SCH ×2 (08:03→21:11)
[2021-06-07] MEDS: PROPRANOLOL HCL LA 80 MG CAPCR PO SCH (08:04)
[2021-06-07] MEDS: PROPRANOLOL HCL 60 MG LA CAP PO SCH (08:04)
[2021-06-07] MEDS: MICONAZOLE NITRATE POWDER 43 GM EXT SCH ×2 (08:04→21:11)
[2021-06-07] MEDS: MULTIVITAMIN TAB PO SCH (08:04)
[2021-06-07 08:12] LABS: BUN Creatinine Ratio 18.1 (10-20); Calcium 9.7 mg/dl (8.5-10.1); Creatinine Clr Calc Pharmacy 146.2 ml/min; Est GFR (African American) 117.6 ml/min; Est GFR (Non-African American) 101.5 ml/min; Potassium 3.9 mmol/L (3.5-5.1)
--- NOTE | 2021-06-07 08:39 | Hospitalist Progress Note ---
Date of Service June 07, 2021 Assessment & Plan (1) Ankle dislocation: Plan: 60yo female with DM2 and history of PE presents after dislocating her recently- repaired right-sided Maisonneuve ankle fracture. Ankle dislocation - Splint placed by ED provider; ortho performed open reduction & external fixation (06/03) with irrigation & debridement of ankle wound - 1 dose of ancef given due to open wound down to bone; then transitioned to ce ftriaxone/daptomycin IV (MRSA coverage) before switching to doxycycline/keflex - Plan doxycycline/keflex therapy for a total of 10-14 days after surgery (06/03); last dose will be 06/17/21 - Pain control: mild-tylenol / moderate-oxycodone / severe-dilauded - PT/OT consulted -- recs for inpt vs SNF, CM assisting with placement; referral made to [facility] - Espinal catheter had been placed for convenience while patient recovers; removed on 06/07 History of pulmonary embolism - Chronically anticoagulated with xarelto - Xarelto held prior to surgery, restarted on 06/05/21 LIMA - Continue home citalopram, and hydroxyzine, and lorazepam - Home buspar increased from bid to tid - Continue to monitor Migraine - Continue amitriptyline, propranolol for prophylaxis Anemia - Chronic, stable, normocytic - No intervention indicated at this time FEN: DM2, heart-healthy diet Code status: full code DVT ppx: xarelto PT/OT: ordered Case management: following Dispo: med/surg (2) Hx pulmonary embolism: (3) LIMA (generalized anxiety disorder): (4) Migraine: Admission and Anticipated Discharge Date Admission Date: June 01, 2021 Supervising Physician Co-Signing Physician Notes Patient seen and examined with PGY-2 Dr. Chaney. Agree with history, exam findings, assessment and plan of care as outlined. In brief, Samantha is a 60 year old female with history of PE, LIMA, migraine headaches admitted with dislocation of recently repaired Maisonneuve ankle fracture. Her birthday is this [birth year]. Feels well. She is amenable to having the Espinal catheter removed and trying either a Purewick of bedpan. VS and nursing notes reviewed. Well appearing. Heart with soft systolic murmur. Right lower extremity with ex-fix in place. Ex-fix exit sites are wrapped. Neurovascularly in tact in the distal right LE. Labs and imaging reviewed. 1.Ankle dislocation/fracture. Open. ORIF with irrigation/debridement of the wound done on 06/03. Transitioned to doxycycline and keflex x 10-14 days post- op. PT/OT. 2. Hx of PE. Restarted Xarelto on 06/05. 3.Anxiety. Continue home celexa. Increased home buspar from 10mg BID to 10mg TID. Continue with PRN Ativan. Dispo: Medically stable for discharge. Awaiting placement. Subjective Patient seen and evaluated at bedside this morning. No acute events overnight. Patient feels pretty good today and has no complaints. Patient denies ankle pain at this time. Patient denies CP, SOB, abdominal pain, nausea, vomiting, lightheadedness, dizziness, and diarrhea. Review of Systems Review of Systems: See HPI Physical Exam Physical Exam: Constitutional: well-appearing, no acute distress, sitting comfortably in bed CV: regular rhythm, no murmur appreciated Resp: CTABL, no wheezes/rales/rhonchi appreciated, no increased work of breathing MSK: right ankle wrapped Skin: warm, dry, no rash appreciated Neuro: AOx4, no focal neurological deficits appreciated Results & Data Results & Data ([facility]) Vital Signs (Past 12 Hours) Vital Signs Temp Pulse Resp BP BP Pulse Ox 06/07/21 07:30 36.6 C 64 18 124/74 97 06/06/21 23:15 36.4 C L 64 16 117/68 93 Resident Activity Tracking Resident Involvement: Resident Care Provided Care Provided: Adult Hospital Medicine (1) Ankle dislocation Encounter type: initial encounter Laterality: right Qualified Code(s): S93.04XA - Dislocation of right ankle joint, initial encounter
[2021-06-07 09:57] LABS: Estimated Average Glucose 114 mg/dl; Hemoglobin A1C 5.6 % (4.5-5.6)
[2021-06-07] MEDS: MAGNESIUM OXIDE 400 MG TAB PO SCH (12:55)
[2021-06-07] MEDS: CITALOPRAM 40 MG TAB PO SCH (21:11)
[2021-06-07] MEDS: AMITRIPTYLINE HCL 50 MG TAB PO SCH (21:11)
[2021-06-07] MEDS: RIVAROXABAN 20 MG TAB PO SCH (21:12)
[2021-06-07] MEDS: LORazepam 0.5 MG TAB PO PRN (21:12)
[2021-06-07] MEDS: SENNA 8.6 MG TAB PO SCH (21:12)
[2021-06-08] MEDS: ACETAMINOPHEN 500 MG TAB PO SCH ×3 (06:07→21:29)
--- NOTE | 2021-06-08 07:16 | Hospitalist Progress Note ---
Date of Service June 08, 2021 Assessment & Plan (1) Ankle dislocation: Plan: 60yo female with DM2 and history of PE presents after dislocating her recently- repaired right-sided Maisonneuve ankle fracture. Ankle dislocation - Splint placed by ED provider; ortho performed open reduction & external fixation (06/03) with irrigation & debridement of ankle wound - 1 dose of ancef given due to open wound down to bone; then transitioned to ce ftriaxone/daptomycin IV (MRSA coverage) before switching to doxycycline/keflex - Plan doxycycline/keflex therapy for a total of 10-14 days after surgery (06/03); last dose will be 06/17/21 - Pain control: mild-tylenol / moderate-oxycodone / severe-dilauded - PT/OT consulted -- recs for inpt vs SNF, CM assisting with placement; referral made to [facility] - Espinal catheter had been placed for convenience while patient recovers; removed on 06/07 History of pulmonary embolism - Chronically anticoagulated with xarelto - Xarelto held prior to surgery, restarted on 06/05/21 LIMA - Continue home citalopram, and hydroxyzine, and lorazepam - Home buspar increased from bid to tid - Continue to monitor Migraine - Continue amitriptyline, propranolol for prophylaxis Anemia - Chronic, stable, normocytic - No intervention indicated at this time FEN: DM2, heart-healthy diet Code status: full code DVT ppx: xarelto PT/OT: ordered Case management: following Dispo: med/surg (2) Hx pulmonary embolism: (3) LIMA (generalized anxiety disorder): (4) Migraine: Admission and Anticipated Discharge Date Admission Date: June 01, 2021 Supervising Physician Co-Signing Physician Notes Patient seen and examined independently of PGY-2 Dr. Chaney. Agree with history, exam findings, assessment and plan of care as outlined. In brief, Samantha is a 60 year old female with history of PE, LIMA, migraine headaches admitted with dislocation of recently repaired Maisonneuve ankle fracture. Her birthday is this Sunday. Feels well. Did feel like her anxiety was slightly less compared to previous nights. VS and nursing notes reviewed. Well appearing. Heart with soft systolic murmur. Right lower extremity with ex-fix in place. Ex-fix exit sites are wrapped. Neurovascularly in tact in the distal right LE. Labs and imaging reviewed. 1. Ankle dislocation/fracture. Open. ORIF with irrigation/debridement of the wound done on 06/03. Transitioned to doxycycline and keflex x 10-14 days post- op. PT/OT. 2. Hx of PE. Restarted Xarelto on 06/05. 3. Anxiety. Continue home celexa. Increased home buspar from 10mg BID to 10mg TID. Continue with PRN Ativan. Dispo: Medically stable for discharge. Awaiting placement. Appreciate care management assistance with this. Subjective Patient seen and evaluated at bedside. No acute events overnight. Patient feels well today and notes her anxiety has improved a bit compared to yesterday. Patient continues to deny ankle pain. Patient denies CP, SOB, abdominal pain, nausea, vomiting, lightheadedness, dizziness, and diarrhea. Review of Systems Review of Systems: See HPI Physical Exam Physical Exam: Constitutional: well-appearing, no acute distress, sitting comfortably in bed CV: regular rhythm, no murmur appreciated Resp: CTABL, no wheezes/rales/rhonchi appreciated, no increased work of breathing MSK: right ankle wrapped Skin: warm, dry, no rash appreciated Neuro: AOx4, no focal neurological deficits appreciated Results & Data Results & Data ([facility]) Vital Signs (Past 12 Hours) Vital Signs Temp Pulse Resp BP Pulse Ox 06/07/21 22:17 36.6 C 69 16 147/73 H 95 Resident Activity Tracking Resident Involvement: Resident Care Provided Care Provided: Adult Hospital Medicine (1) Ankle dislocation Encounter type: initial encounter Laterality: right Qualified Code(s): S93.04XA - Dislocation of right ankle joint, initial encounter
[2021-06-08] MEDS: DOXYCYCLINE HYCLATE 100 MG CAP PO SCH ×2 (09:31→21:27)
[2021-06-08] MEDS: DOCUSATE SODIUM 100 MG CAP PO SCH ×2 (09:32→21:27)
[2021-06-08] MEDS: busPIRone 5 MG TAB PO SCH ×3 (09:33→21:28)
[2021-06-08] MEDS: cephALEXin 500 MG CAP PO SCH ×4 (09:33→21:26)
[2021-06-08] MEDS: PROPRANOLOL HCL LA 80 MG CAPCR PO SCH (09:34)
[2021-06-08] MEDS: MULTIVITAMIN TAB PO SCH (09:34)
[2021-06-08] MEDS: PROPRANOLOL HCL 60 MG LA CAP PO SCH (09:35)
[2021-06-08] MEDS: CYANOCOBALAMIN 500 MCG TABLET (VITAMIN B-12) PO SCH (09:35)
[2021-06-08] MEDS: ERGOCALCIFEROL 50,000 UNITS 1250 MCG CAP PO SCH (09:35)
[2021-06-08] MEDS: MICONAZOLE NITRATE POWDER 43 GM EXT SCH ×2 (09:36→21:29)
[2021-06-08] MEDS: MAGNESIUM OXIDE 400 MG TAB PO SCH (14:23)
[2021-06-08] MEDS: SENNA 8.6 MG TAB PO SCH (21:26)
[2021-06-08] MEDS: AMITRIPTYLINE HCL 50 MG TAB PO SCH (21:26)
[2021-06-08] MEDS: CITALOPRAM 40 MG TAB PO SCH (21:27)
[2021-06-08] MEDS: RIVAROXABAN 20 MG TAB PO SCH (21:28)
[2021-06-09] MEDS: ACETAMINOPHEN 500 MG TAB PO SCH ×3 (06:24→21:28)
--- NOTE | 2021-06-09 07:36 | Hospitalist Progress Note ---
Date of Service June 09, 2021 Assessment & Plan (1) Ankle dislocation: Plan: 60yo female with DM2 and history of PE presents after dislocating her recently- repaired right-sided Maisonneuve ankle fracture. Ankle dislocation - Splint placed by ED provider; ortho performed open reduction & external fixation (06/03) with irrigation & debridement of ankle wound - 1 dose of ancef given due to open wound down to bone; then transitioned to ce ftriaxone/daptomycin IV (MRSA coverage) before switching to doxycycline/keflex - Plan doxycycline/keflex therapy for a total of 10-14 days after surgery (06/03); last dose will be 06/17/21 - Pain control: mild-tylenol / moderate-oxycodone / severe-dilauded - PT/OT consulted -- recs for inpt vs SNF, CM assisting with placement; referral made to [facility] - Espinal catheter had been placed for convenience while patient recovers; removed on 06/07 History of pulmonary embolism - Chronically anticoagulated with xarelto - Xarelto held prior to surgery, restarted on 06/05/21 LIMA - Continue home citalopram, and hydroxyzine, and lorazepam - Home buspar increased from bid to tid - Continue to monitor Migraine - Continue amitriptyline, propranolol for prophylaxis Anemia - Chronic, stable, normocytic - No intervention indicated at this time FEN: DM2, heart-healthy diet Code status: full code DVT ppx: xarelto PT/OT: ordered Case management: following Dispo: med/surg (2) Hx pulmonary embolism: (3) LIMA (generalized anxiety disorder): (4) Migraine: Admission and Anticipated Discharge Date Admission Date: June 01, 2021 Supervising Physician Co-Signing Physician Notes Patient seen and examined with PGY-2 Dr. Chaney. Agree with history, exam findings, assessment and plan of care as outlined. In brief, Samantha is a 60 year old female with history of PE, LIMA, migraine headaches admitted with dislocation of recently repaired Maisonneuve ankle fracture. Her birthday is this Sunday. Feels well. Did feel like her anxiety was slightly less compared to previous nights. No side effects from the increased buspar from BID to TID. VS and nursing notes reviewed. Well appearing. Heart with soft systolic murmur. Right lower extremity with ex-fix in place. Ex-fix exit sites are wrapped. Neurovascularly in tact in the distal right LE. Labs and imaging reviewed. 1. Ankle dislocation/fracture. Open. ORIF with irrigation/debridement of the wound done on 06/03. Transitioned to doxycycline and keflex x 10-14 days post- op. PT/OT. 2. Hx of PE. Restarted Xarelto on 06/05. 3. Anxiety. Continue home celexa. Increased home buspar from 10mg BID to 10mg TID. Continue with PRN Ativan. 4. Anemia. Stable. Dispo: Medically stable for discharge. Awaiting placement. Appreciate care management assistance with this. Subjective Patient seen and evaluated at bedside this morning. No acute events overnight. Patient feels well today and reports her anxiety has improved a bit. No new concerns today. Patient denies CP, SOB, abdominal pain, nausea, vomiting, lightheadedness, dizziness, and diarrhea. Review of Systems Review of Systems: See HPI Physical Exam Physical Exam: Constitutional: well-appearing, no acute distress, sitting comfortably in bed CV: regular rhythm, no murmur appreciated Resp: CTABL, no wheezes/rales/rhonchi appreciated, no increased work of breathing MSK: right ankle wrapped Skin: warm, dry, no rash appreciated Neuro: AOx4, no focal neurological deficits appreciated Results & Data Results & Data ([facility]) Vital Signs (Past 12 Hours) Vital Signs Temp Pulse Resp BP BP Pulse Ox 06/09/21 07:22 36.6 C 70 17 145/75 H 94 06/08/21 23:17 36.7 C 66 16 145/72 H 94 Resident Activity Tracking Resident Involvement: Resident Care Provided Care Provided: Adult Hospital Medicine (1) Ankle dislocation Encounter type: initial encounter Laterality: right Qualified Code(s): S93.04XA - Dislocation of right ankle joint, initial encounter
[2021-06-09 07:41] LABS: Basophils # (auto) 0.01 K/uL (0-0.2); Basophils % (auto) 0.2 %; Eosinophils # (auto) 0.21 K/uL (0-0.5); Eosinophils % (auto) 3.6 %; Hematocrit (blood only) 35.4 % (37-47); Hemoglobin 11.6 g/dL (12.0-16.0); Immature Granulocytes # (auto) 0.01 K/uL (0.00-0.02); Immature Granulocytes % (auto) 0.2 %; Lymphocytes # (auto) 0.94 K/uL (1.2-3.4); Lymphocytes % (auto) 16.3 %; Mean Corpuscular Hemoglobin 27.7 pg (25-34); Mean Corpuscular Hgb Conc 32.8 g/dL (32-36); Mean Corpuscular Volume 84.5 fL (80-100); Mean Platelet Volume 8.7 fL (7.4-10.4); Monocytes # (auto) 0.34 K/uL (0.11-0.59); Monocytes % (auto) 5.9 %; Neutrophils # (auto) 4.26 K/uL (1.4-6.5); Neutrophils % (auto) 73.8 %; Platelet Count 228 K/uL (130-400); RDW Coefficient of Variation 15.4 % (11.5-14.5); RDW Standard Deviation 47.2 fL (36.4-46.3); Red Blood Count 4.19 M/uL (4.2-5.4); White Blood Count 5.77 K/uL (4.8-10.8)
[2021-06-09] MEDS: busPIRone 5 MG TAB PO SCH ×3 (09:21→21:29)
[2021-06-09] MEDS: cephALEXin 500 MG CAP PO SCH ×4 (09:21→21:30)
[2021-06-09] MEDS: CYANOCOBALAMIN 500 MCG TABLET (VITAMIN B-12) PO SCH (09:22)
[2021-06-09] MEDS: DOCUSATE SODIUM 100 MG CAP PO SCH ×2 (09:22→21:30)
[2021-06-09] MEDS: DOXYCYCLINE HYCLATE 100 MG CAP PO SCH ×2 (09:23→21:28)
[2021-06-09] MEDS: MULTIVITAMIN TAB PO SCH (09:24)
[2021-06-09] MEDS: PROPRANOLOL HCL LA 80 MG CAPCR PO SCH (09:25)
[2021-06-09] MEDS: MICONAZOLE NITRATE POWDER 43 GM EXT SCH ×2 (12:23→21:31)
[2021-06-09] MEDS: PROPRANOLOL HCL 60 MG LA CAP PO SCH (12:25)
[2021-06-09] MEDS: MAGNESIUM OXIDE 400 MG TAB PO SCH (12:34)
[2021-06-09] MEDS: LORazepam 0.5 MG TAB PO PRN (21:28)
[2021-06-09] MEDS: RIVAROXABAN 20 MG TAB PO SCH (21:28)
[2021-06-09] MEDS: SENNA 8.6 MG TAB PO SCH (21:29)
[2021-06-09] MEDS: AMITRIPTYLINE HCL 50 MG TAB PO SCH (21:30)
[2021-06-09] MEDS: CITALOPRAM 40 MG TAB PO SCH (21:31)
[2021-06-10] MEDS: ACETAMINOPHEN 500 MG TAB PO SCH ×3 (05:39→21:07)
[2021-06-10] MEDS: DOXYCYCLINE HYCLATE 100 MG CAP PO SCH ×2 (07:58→21:08)
[2021-06-10] MEDS: PROPRANOLOL HCL 60 MG LA CAP PO SCH (07:59)
[2021-06-10] MEDS: MULTIVITAMIN TAB PO SCH (07:59)
[2021-06-10] MEDS: cephALEXin 500 MG CAP PO SCH ×4 (08:00→21:06)
[2021-06-10] MEDS: PROPRANOLOL HCL LA 80 MG CAPCR PO SCH (08:00)
[2021-06-10] MEDS: DOCUSATE SODIUM 100 MG CAP PO SCH ×2 (08:00→21:09)
[2021-06-10] MEDS: MICONAZOLE NITRATE POWDER 43 GM EXT SCH ×2 (08:01→21:09)
[2021-06-10] MEDS: CYANOCOBALAMIN 500 MCG TABLET (VITAMIN B-12) PO SCH (08:01)
[2021-06-10] MEDS: busPIRone 5 MG TAB PO SCH ×3 (08:01→21:08)
--- NOTE | 2021-06-10 08:24 | Hospitalist Progress Note ---
Date of Service June 10, 2021 Assessment & Plan (1) Ankle dislocation: Plan: 60yo female with DM2 and history of PE presents after dislocating her recently- repaired right-sided Maisonneuve ankle fracture. Ankle dislocation Splint placed by ED provider; ortho performed open reduction & external fixation (06/03) with irrigation & debridement of ankle wound 1 dose of ancef given due to open wound down to bone; then transitioned to ce ftriaxone/daptomycin IV (MRSA coverage) before switching to doxycycline/keflex Plan doxycycline/keflex therapy for a total of 10-14 days after surgery (06/03); last dose will be 06/17/21 Pain control: mild-tylenol / moderate-oxycodone / severe-dilauded PT/OT consulted -- recs for inpt vs SNF, CM assisting with placement; referral made to [facility] Espinal catheter had been placed for convenience while patient recovers; removed on 06/07 History of pulmonary embolism Chronically anticoagulated with xarelto Xarelto held prior to surgery, restarted on 06/05/21 LIMA Continue home citalopram, and hydroxyzine, and lorazepam Home buspar increased from bid to tid Continue to monitor Migraine Continue amitriptyline, propranolol for prophylaxis Anemia Chronic, stable, normocytic No intervention indicated at this time FEN: DM2, heart-healthy diet Code status: full code DVT ppx: xarelto PT/OT: ordered Case management: following Dispo: med/surg (2) Hx pulmonary embolism: (3) LIMA (generalized anxiety disorder): (4) Migraine: Admission and Anticipated Discharge Date Admission Date: June 01, 2021 Supervising Physician Co-Signing Physician Notes Attending attestation Pt seen and examined in concert with Dr. Chaney. In agreement with the documented findings as noted in the resident documentation with any exceptions o r additions as noted here. Resting in bed with controlled pain of the right ankle. Stable anxiety which is ameliorated by upcoming spouse visit for birthday. On examination, S1/S2 nl RRR 2/6 JOHN PAUL. CTAB. Abd NT/ND BS+ve. RLE NVI exfix in place Ankle dislocation s/p ORIF - continue doxy/keflex for 15 day course total. PT/OT per orthos h/o PE - continue Xarelto LIMA - continue celexa, tolerating increased buspirone w/ ativan PRN Else see resident documentation as noted. Subjective Patient seen and evaluated at bedside this morning. No acute events overnight. Patient feels "alright" today - physically feels fine, but a bit sad and anxious because it is her birthday today and she feels lonely. Patient feels safe here in the hospital. Patient denies CP, SOB, abdominal pain, nausea, vomiting, lightheadedness, dizziness, and diarrhea. Review of Systems Review of Systems: See HPI Physical Exam Physical Exam: Constitutional: well-appearing, no acute distress, laying comfortably CV: regular rhythm, no murmur appreciated Resp: CTABL, no wheezes/rales/rhonchi appreciated, no increased work of breathing MSK: right ankle wrapped Skin: warm, dry, no rash appreciated Neuro: AOx4, no focal neurological deficits appreciated Results & Data Results & Data ([facility]) Vital Signs (Past 12 Hours) Vital Signs Temp Pulse Resp BP BP Pulse Ox 06/10/21 08:01 36.6 C 69 20 151/70 H 95 06/09/21 23:20 36.4 C L 66 20 134/72 95 Resident Activity Tracking Resident Involvement: Resident Care Provided Care Provided: Adult Hospital Medicine (1) Ankle dislocation Encounter type: initial encounter Laterality: right Qualified Code(s): S93.04XA - Dislocation of right ankle joint, initial encounter
[2021-06-10] MEDS: MAGNESIUM OXIDE 400 MG TAB PO SCH (13:20)
[2021-06-10] MEDS: AMITRIPTYLINE HCL 50 MG TAB PO SCH (21:06)
[2021-06-10] MEDS: SENNA 8.6 MG TAB PO SCH (21:07)
[2021-06-10] MEDS: RIVAROXABAN 20 MG TAB PO SCH (21:07)
[2021-06-10] MEDS: CITALOPRAM 40 MG TAB PO SCH (21:08)
[2021-06-10] MEDS: LORazepam 0.5 MG TAB PO PRN (21:16)
--- NOTE | 2021-06-11 06:06 | Hospitalist Progress Note ---
Date of Service June 11, 2021 Assessment & Plan (1) Ankle dislocation: Plan: 60yo female with DM2 and history of PE presents after dislocating her recently- repaired right-sided Maisonneuve ankle fracture. Ankle dislocation s/p open reduction & external fixation (06/03) by ortho with irrigation & debridement of ankle wound Given open wound (down to bone) --> continue doxycycline/cephalexin therapy for a total of 10-14 days, end 06/17/21 Pain control mild-tylenol / moderate-oxycodone / severe-dilauded PT/OT consulted -- recs for inpt vs SNF, CM assisting with placement; referral made to [facility] Espinal catheter had been placed for convenience while patient recovers; removed on 06/07 History of pulmonary embolism Continue home Xarelto LIMA Continue home citalopram, and hydroxyzine, and lorazepam Home buspar increased from bid to tid Continue to monitor Migraine Continue amitriptyline, propranolol for prophylaxis Anemia Chronic, stable, normocytic No intervention indicated at this time FEN: DM2, heart-healthy diet Code status: full code DVT ppx: Xarelto PT/OT: ordered Case management: following Dispo: med/surg (2) Hx pulmonary embolism: (3) LIMA (generalized anxiety disorder): (4) Migraine: Admission and Anticipated Discharge Date Admission Date: June 01, 2021 Supervising Physician Co-Signing Physician Notes Attending attestation Pt seen and examined in concert with Dr. Chaney. In agreement with the documented findings as noted in the resident documentation with any exceptions or additions as noted here. Resting in bed with controlled pain of the right ankle. Stable anxiety without panic type sx. On examination, S1/S2 nl RRR 2/6 JOHN PAUL. CTAB. Abd NT/ND BS+ve. RLE NVI exfix in place Ankle dislocation s/p ORIF - continue doxy/keflex for 15 day course total. PT/OT per ortho h/o PE - continue Xarelto LIMA - continue celexa, buspirone w/ ativan PRN Else see resident documentation as noted. Subjective NAEO. Feeling ok this morning. Pain controlled. No chest pain, palpitations. Passing gas. Eager to get out of the hospital. No other concerns. Review of Systems Review of Systems: As per HPI Physical Exam Physical Exam: General: Well-appearing 61-year-old female lying back in her hospital bed, relaxed, upon my arrival. NAD. HEENT: NCAT. Eyes - Sclera are white, anicteric, and without injection. Mouth - MMM. Cardiac: Normal rate and regular rhythm; S1 and S2 present with no murmurs, rubs, or gallops. Pulmonary: Good respiratory effort with symmetric expansion of the chest. No use of accessory muscles. Lungs were clear to auscultation bilaterally with no crackles or wheezes. Abdominal: Normoactive bowel sounds. Abdomen was soft, nondistended, and non- tender to palpation. Extremities: Upper and lower extremities are warm and well perfused. RLE wrapped and in-frame. Good peripheral motor strength at toes. Sensation in tact. Capillary refill < 3 seconds. Results & Data Results & Data ([facility]) Vital Signs (Past 12 Hours) Vital Signs Temp Pulse Resp BP Pulse Ox 06/10/21 22:45 36.6 C 69 18 113/75 96 Resident Activity Tracking Resident Involvement: Resident Care Provided Care Provided: Adult Hospital Medicine (1) Ankle dislocation Encounter type: initial encounter Laterality: right Qualified Code(s): S93.04XA - Dislocation of right ankle joint, initial encounter
[2021-06-11] MEDS: ACETAMINOPHEN 500 MG TAB PO SCH ×3 (06:23→21:05)
[2021-06-11 07:07] LABS: Basophils # (auto) 0.01 K/uL (0-0.2); Basophils % (auto) 0.2 %; Eosinophils # (auto) 0.18 K/uL (0-0.5); Hematocrit (blood only) 36.4 % (37-47); Hemoglobin 11.8 g/dL (12.0-16.0); Immature Granulocytes # (auto) 0.01 K/uL (0.00-0.02); Immature Granulocytes % (auto) 0.2 %; Lymphocytes # (auto) 1.08 K/uL (1.2-3.4); Lymphocytes % (auto) 18.2 %; Mean Corpuscular Hemoglobin 27.5 pg (25-34); Mean Corpuscular Hgb Conc 32.4 g/dL (32-36); Mean Corpuscular Volume 84.8 fL (80-100); Mean Platelet Volume 8.7 fL (7.4-10.4); Monocytes # (auto) 0.36 K/uL (0.11-0.59); Monocytes % (auto) 6.1 %; Neutrophils # (auto) 4.31 K/uL (1.4-6.5); Neutrophils % (auto) 72.3 %; Platelet Count 236 K/uL (130-400); RDW Coefficient of Variation 15.7 % (11.5-14.5); Red Blood Count 4.29 M/uL (4.2-5.4); White Blood Count 5.95 K/uL (4.8-10.8)
[2021-06-11 07:47] LABS: BUN Creatinine Ratio 20.9 (10-20); Calcium 9.4 mg/dl (8.5-10.1); Creatinine Clr Calc Pharmacy 130.7 ml/min; Est GFR (Non-African American) 97.5 ml/min
[2021-06-11] MEDS: DOCUSATE SODIUM 100 MG CAP PO SCH ×2 (08:46→21:06)
[2021-06-11] MEDS: CYANOCOBALAMIN 500 MCG TABLET (VITAMIN B-12) PO SCH (08:46)
[2021-06-11] MEDS: DOXYCYCLINE HYCLATE 100 MG CAP PO SCH ×2 (08:47→21:05)
[2021-06-11] MEDS: MULTIVITAMIN TAB PO SCH (08:47)
[2021-06-11] MEDS: PROPRANOLOL HCL LA 80 MG CAPCR PO SCH (08:47)
[2021-06-11] MEDS: busPIRone 5 MG TAB PO SCH ×3 (08:47→21:06)
[2021-06-11] MEDS: cephALEXin 500 MG CAP PO SCH ×4 (08:48→21:05)
[2021-06-11] MEDS: MICONAZOLE NITRATE POWDER 43 GM EXT SCH ×2 (08:48→21:03)
[2021-06-11] MEDS: PROPRANOLOL HCL 60 MG LA CAP PO SCH (08:48)
[2021-06-11] MEDS: MAGNESIUM OXIDE 400 MG TAB PO SCH (13:15)
[2021-06-11] MEDS: RIVAROXABAN 20 MG TAB PO SCH (21:04)
[2021-06-11] MEDS: AMITRIPTYLINE HCL 50 MG TAB PO SCH (21:05)
[2021-06-11] MEDS: SENNA 8.6 MG TAB PO SCH (21:06)
[2021-06-11] MEDS: CITALOPRAM 40 MG TAB PO SCH (21:06)
[2021-06-11] MEDS: LORazepam 0.5 MG TAB PO PRN (21:12)
[2021-06-12] MEDS: ACETAMINOPHEN 500 MG TAB PO SCH ×3 (05:37→21:29)
--- NOTE | 2021-06-12 07:39 | Hospitalist Progress Note ---
Date of Service June 12, 2021 Assessment & Plan (1) Ankle dislocation: Plan: 60yo female with DM2 and history of PE presents after dislocating her recently- repaired right-sided Maisonneuve ankle fracture. Ankle dislocation s/p open reduction & external fixation (06/03) by ortho with irrigation & debridement of ankle wound Given open wound (down to bone) --> continue doxycycline/cephalexin therapy for a total of 10-14 days, end 06/17/21 Pain control (achieving) -- mild-tylenol / moderate-oxycodone / severe- dilauded PT/OT consulted -- recs for inpt vs SNF, CM assisting with placement; referral made to [facility] History of pulmonary embolism Continue home Xarelto LIMA Continue home citalopram, and hydroxyzine, and lorazepam Patient will attempt to refrain from lorazepam at night. If unsuccessful --> consider trazodone Home BusPar to 10mg t.i.d Continue to monitor Migraine Continue amitriptyline, propranolol for prophylaxis Anemia Chronic, stable, normocytic No intervention indicated at this time FEN: DM2, heart-healthy diet Code status: full code DVT ppx: Xarelto PT/OT: ordered Case management: following Dispo: med/surg (2) Hx pulmonary embolism: (3) LIMA (generalized anxiety disorder): (4) Migraine: Admission and Anticipated Discharge Date Admission Date: June 01, 2021 Supervising Physician Co-Signing Physician Notes Attending attestation Pt seen and examined in concert with Dr. Katz. In agreement with the documented findings as noted in the resident documentation with any exceptions or additions as noted here. Resting in bed with controlled pain of the right ankle. Reports improved anxiety on increased buspirone dosing. Still using lorazepam qHS with regularity with benefit, has not tried weaning since increased dosing. On examination, S1/S2 nl RRR 2/6 JOHN PAUL. CTAB. Abd NT/ND BS+ve. RLE NVI exfix in place Ankle dislocation s/p ORIF - continue doxy/keflex for 15 day course total. PT/OT per ortho h/o PE - continue Xarelto LIMA - continue celexa, buspirone w/ ativan PRN - discussed use of qHS lorazepam for insomnia and the negative impacts of its use, as well as alternative medications, specifically trazodone. Patient defers trial of new medication at this time in favor of self-d/c attempt of lorazepam and f/u. Will leave PRN in case of failure and follow up in AM. Else see resident documentation as noted. Subjective NAEO. Ankle feeling well. No pain, numbness/tingling. Denies CP,palpiations/SOB. No n/v - appetite good, passing gas. Spiritis are "ok" this morning. See attestation by my attending for further discussion re: anxiety. Would like to try tonight without Ativan. Open to discuss trazodone more if difficult. Review of Systems Review of Systems: as per HPI Physical Exam Physical Exam: General: Well-appearing 61-year-old female lying back in her hospital bed, relaxed, upon my arrival. NAD. Unchanged from yesterday. HEENT: NCAT. Eyes - Sclera are white, anicteric, and without injection. Mouth - MMM. Cardiac: Normal rate and regular rhythm; S1 and S2 present with no murmurs, rubs, or gallops. Pulmonary: Good respiratory effort with symmetric expansion of the chest. No use of accessory muscles. Lungs were clear to auscultation bilaterally with no crackles or wheezes. Abdominal: Normoactive bowel sounds. Abdomen was soft, nondistended, and non- tender to palpation. Extremities: Upper and lower extremities are warm and well perfused. RLE wrapped and in-frame. Good peripheral motor strength at toes. Sensation in tact. Capillary refill < 3 seconds. Results & Data Results & Data ([facility]) Vital Signs (Past 12 Hours) Vital Signs Temp Pulse Resp BP Pulse Ox 06/11/21 22:42 36.4 C 68 22 126/71 95 Resident Activity Tracking Resident Involvement: Resident Care Provided Care Provided: Adult Hospital Medicine (1) Ankle dislocation Encounter type: initial encounter Laterality: right Qualified Code(s): S93.04XA - Dislocation of right ankle joint, initial encounter
[2021-06-12] MEDS: CYANOCOBALAMIN 500 MCG TABLET (VITAMIN B-12) PO SCH (08:12)
[2021-06-12] MEDS: PROPRANOLOL HCL 60 MG LA CAP PO SCH (08:12)
[2021-06-12] MEDS: MULTIVITAMIN TAB PO SCH (08:12)
[2021-06-12] MEDS: cephALEXin 500 MG CAP PO SCH (08:12)
[2021-06-12] MEDS: DOCUSATE SODIUM 100 MG CAP PO SCH ×2 (08:12→20:12)
[2021-06-12] MEDS: MICONAZOLE NITRATE POWDER 43 GM EXT SCH ×2 (08:13→20:13)
[2021-06-12] MEDS: DOXYCYCLINE HYCLATE 100 MG CAP PO SCH (08:13)
[2021-06-12] MEDS: busPIRone 5 MG TAB PO SCH ×3 (08:13→20:13)
[2021-06-12] MEDS: PROPRANOLOL HCL LA 80 MG CAPCR PO SCH (08:13)
[2021-06-12] MEDS: MAGNESIUM OXIDE 400 MG TAB PO SCH (12:56)
[2021-06-12] MEDS: CITALOPRAM 40 MG TAB PO SCH (20:12)
[2021-06-12] MEDS: SENNA 8.6 MG TAB PO SCH (20:12)
[2021-06-12] MEDS: AMITRIPTYLINE HCL 50 MG TAB PO SCH (20:13)
[2021-06-12] MEDS: RIVAROXABAN 20 MG TAB PO SCH (20:13)
[2021-06-13] MEDS: ACETAMINOPHEN 500 MG TAB PO SCH ×3 (05:56→22:01)
--- NOTE | 2021-06-13 07:12 | Discharge Summary ---
Date of Service June 13, 2021 Admission HPI Per Admitting Provider Mrs. Somers is a 60 yo woman with a PMHx of morbid obesity who recently underwent surgical repair of a right ankle fracture. She initially injured the right ankle on 05/13/21 at which time xrays showed evidence of deltoid ligament injury with medial clear space widening, consistent with a Maisonneuve fracture. She also had an associated proximal fibular fracture. She was operated on by Dr. Jus Patel on 05/20/21 - the procedure went well without complication. She reports bearing weight on the R ankle after the surgery (ie when stepping out of the car after returning home from the procedure) and feeling a small amount of discomfort and tingling in her R ankle. She assumed it was normal post-operative pain. During the recovery period, she has been at home - she spends most of the time in her recliner - she would bear weight on the right ankle when she should stand up out of the recliner. Her would bring a portable commode to her - so she did not need to take many steps. She also had a wheelchair and a rolling walker for assistance. She went to see Dr. Patel today for a routine post-operative follow up. Xrays were obtained at this visit and showed a dislocated open ankle fracture. She was directed to immediately come to the ED. A discussion was held with Dr. Desai from [facility] after surgery - he intends to operate on her this Sunday. In the ED her vitals were normal. Her CBC and CMP were normal. She was given 3g of Ancef and 175 mcg of Fentanyl for pain control. A splint was placed over R LE. Admission Exam Per Admitting Provider Constitutional: WD/WN, vitals as above + morbidly obese and cooperative; no acute distress Eyes: + anicteric sclerae ENMT: external ear and nose normal, oropharynx normal Neck: trachea midline Respiratory: normal respiratory effort, lungs clear to auscultation Cardiovascular: RRR, no murmur, no edema Heart Sounds: normal S1 and normal S2 Gastrointestinal (Abdomen): normal bowel sounds, soft, nontender, no hepatosplenomegaly Musculoskeletal: Head/Neck/Chest: normocephalic and head atraumatic + R LE was wrapped with MARK bandages from the mid-foot to the enriquez (below the knee). Toes are pink in color. Sensation intact. Skin: no rashes, warm and dry Neurologic: moves all extremities Principal Diagnosis Right ankle fracture dislocation s/p open reduction and external fixation of right ankle fracture dislocation Discharge Exam Constitutional: well-appearing, no acute distress, laying comfortably CV: regular rhythm, no murmur appreciated Resp: CTABL, no wheezes/rales/rhonchi appreciated, no increased work of breathing MSK: right ankle wrapped Skin: warm, dry, no rash appreciated Neuro: AOx4, no focal neurological deficits appreciated Discharge Data Allergies Allergy/AdvReac Type Severity Reaction Status Date / Time iron AdvReac Unknown Does not Verified 06/01/21 20:47 tolerate oral (tolerates infusion) Consultations 06/01/21 20:57 ED Decision to Admit Stat 06/01/21 22:07 Consult Orthopedic Surgery Routine Procedures Performed Operation Date: 06/03/21 12:05 Actual Procedures s Irrigation and debridement of right lateral ankle wound dehiscence including skin, subcutaneous tissue, fascia, periosteum and bone.(Right) - Joel Desai DO p Open reduction and external fixation of right ankle fracture dislocation.(Right) - Joel Desai DO s Open reduction and percutaneous pinning of the lateral malleolus.(Right) - Joel Desai DO p Removal of retained hardware, medial and lateral ankle.(Right) - Joel Desai DO Ordered Studies 06/03/21 12:05 FL ankle RT 2V Routine 06/03/21 13:20 US - OR guided needle placemen Routine Hospital Course (1) Ankle dislocation: 60yo female with DM2 and history of PE presents after dislocating her recently-repaired right-sided Maisonneuve ankle fracture. Ankle dislocation s/p open reduction & external fixation (06/03) by ortho with irrigation & debridement of ankle wound Given open wound (down to bone) --> continue doxycycline/cephalexin therapy for a total of 10-14 days, end 06/17/21 Pain control (achieving) -- mild-tylenol / moderate-oxycodone / severe- dilauded PT/OT consulted -- recs for inpt vs SNF, CM assisting with placement; referral made to [facility] History of pulmonary embolism Continue home Xarelto LIMA Continue home citalopram, and hydroxyzine, and lorazepam Patient will attempt to refrain from lorazepam at night. If unsuccessful --> consider trazodone Home BusPar to 10mg t.i.d Continue to monitor Migraine Continue amitriptyline, propranolol for prophylaxis Anemia Chronic, stable, normocytic No intervention indicated at this time FEN: DM2, heart-healthy diet Code status: full code DVT ppx: Xarelto PT/OT: ordered Case management: following Dispo: med/surg Discharge Plan Discharge Items Reason For Visit: ANKLE FRACTURE Non-emergency contact: Surgeon Call non-emergency contact if: your pain is not controlled, your pain is worsening and your temperature is above 101 Follow-up/Referrals: Bradley Muse III, CRNP [Primary Care Provider] - Joel Desai DO [Surgeon] - 06/16/21 2:00 pm () Addtl Temporary Help Agency Referral Clerk Provider Instructions: ACTIVITY RECOMMENDATIONS: Limitations: No weight bearing to affected limb at all times. SPECIAL CARE INSTRUCTIONS: * Some drainage onto the dressing is normal and is no cause for alarm. * Some swelling is natural especially after walking. * When resting, keep your foot elevated above the level of your heart. * Call [facility] if you notice: -Increased drainage -Fever over 101 degrees F -Severe constant pain BANDAGE: * Leave bandage/cast in place unless otherwise directed. * Keep bandage/cast dry at all times. FOLLOW UP VISIT WITH DR. DESAI If appointment is not already scheduled: Please call [facility] [place] after you get home today to schedule a follow-up appointment for [address] Desai at . Medications and DC Order Prescriptions: No Action cholecalciferol (vitamin D3) 1,250 mcg (50,000 unit) capsule 50,000 units PO WEEKLY Qty: 12 RF: 3 citalopram 40 mg tablet 40 mg PO QPM Qty: 90 RF: 1 Nurtec ODT 75 mg tablet,disintegrating 75 mg PO DAILY PRN (Reason: migraine headache) Qty: 8 RF: 5 buspirone 10 mg tablet 10 mg PO BID Qty: 180 RF: 3 methocarbamol 500 mg tablet 500 mg PO BID PRN (Reason: headache) Qty: 60 RF: 0 lorazepam 0.5 mg tablet 0.5 mg PO TID PRN (Reason: anxiety) 14 Days Qty: 42 RF: 0 hydroxyzine HCl 50 mg tablet 50 mg PO HS PRN (Reason: anxiety) Qty: 30 RF: 3 multivitamin [Daily Multi-Vitamin] tablet 1 tab PO QAM RF: 0 magnesium 250 mg tablet 250 mg PO QAM RF: 0 cyanocobalamin (vitamin B-12) 1,000 mcg tablet 1,000 mcg PO QAM RF: 0 propranolol 160 mg capsule,extended release 24 hr 160 mg PO QAM RF: 0 propranolol 60 mg capsule,extended release 24 hr 60 mg PO QAM RF: 0 prochlorperazine maleate [Compazine] 10 mg tablet 10 mg PO Q6H PRN (Reason: nausea/ migraine headache) RF: 0 amitriptyline 25 mg tablet 50 mg PO HS RF: 0 Xarelto 20 mg tablet 20 mg PO HS RF: 0 oxycodone-acetaminophen [Percocet] 5-325 mg tablet 1 tab PO Q6H PRN (Reason: pain) Qty: 20 RF: 0 Krames/Other Patient Handouts: 5 Steps for Eating Healthier Admission Data Admit Date/Time: 06/01/21 22:03 Attending Provider: Sascha Gaxiola Admit Provider: Stefanie Starkey Primary Care Provider: Bradley Muse III Other Providers: Pedro,[facility] ; Kalin Colmenares ; Joel Desai ; [facility]
--- NOTE | 2021-06-13 07:16 | Hospitalist Progress Note ---
Date of Service June 13, 2021 Assessment & Plan (1) Ankle dislocation: Plan: 60yo female with DM2 and history of PE presents after dislocating her recently- repaired right-sided Maisonneuve ankle fracture. Ankle dislocation s/p open reduction & external fixation (06/03) by ortho with irrigation & debridement of ankle wound Given open wound (down to bone) --> continue doxycycline/cephalexin therapy for a total of 10-14 days, end 06/17/21 Pain control (achieving) -- mild-tylenol / moderate-oxycodone / severe- dilauded PT/OT consulted -- recs for inpt vs SNF, CM assisting with placement; referral made to [facility] History of pulmonary embolism Continue home xarelto LIMA Continue home citalopram, and hydroxyzine, and lorazepam Patient will attempt to refrain from lorazepam at night. If unsuccessful --> consider trazodone Home buspar increased from 10mg bid to 10mg tid Continue to monitor Migraine Continue amitriptyline, propranolol for prophylaxis Anemia Chronic, stable, normocytic No intervention indicated at this time FEN: DM2, heart-healthy diet Code status: full code DVT ppx: xarelto PT/OT: ordered Case management: following Dispo: med/surg Admission and Anticipated Discharge Date Admission Date: June 01, 2021 Supervising Physician Co-Signing Physician Notes I personally examined the patient and verified all olmos points of history and exam, discussed case, and agree with decision making with Dr Chaney Wonders if she can have next step of surgery done soon, given that she has been in the hospital for so long. Vitals noted, in general she is awake and alert pleasant no distress. HEENT normocephalic atraumatic mucous membranes are moist. Breathing unlabored no accessory muscle use good effort. Skin shows no rashes no pallor or icterus. Neuro without focal deficits. Ankle wrapped, external fixator in place Open fracture of anklenow postop, overall management per orthopedics. Morbid obesity with BMI of 68.2 definitely plays a role. resume xarelto. type 1 or 2 open fracture per orthopedic assessment. Otherwise as above, will await further orthopedics input stable for placement and outpt f/u once available, but will ask ortho for futher input given how long she's been here Subjective Patient seen and evaluated at bedside this morning. No acute events overnight. Patient feels well today and has no complaints. No pain at this time. Patient reports her anxiety is mild and tolerable at this time. Patient asks if her toenails can be clipped today. Patient denies CP, SOB, abdominal pain, nausea, vomiting, lightheadedness, dizziness, and diarrhea. Review of Systems Review of Systems: See HPI Physical Exam Physical Exam: Constitutional: well-appearing, no acute distress, laying comfortably in bed CV: regular rhythm, no murmur appreciated Resp: CTABL, no wheezes/rales/rhonchi appreciated, breathing non-labored MSK: right ankle wrapped Neuro: AOx4, no focal neurological deficits appreciated Results & Data Results & Data ([facility]) Vital Signs (Past 12 Hours) Vital Signs Temp Pulse Resp BP Pulse Ox 06/12/21 23:08 36.4 C L 69 16 122/64 95 Resident Activity Tracking Resident Involvement: Resident Care Provided Care Provided: Adult Hospital Medicine (1) Ankle dislocation Encounter type: initial encounter Laterality: right Qualified Code(s): S93.04XA - Dislocation of right ankle joint, initial encounter
[2021-06-13] MEDS: PROPRANOLOL HCL LA 80 MG CAPCR PO SCH (08:21)
[2021-06-13] MEDS: MULTIVITAMIN TAB PO SCH (08:21)
[2021-06-13] MEDS: busPIRone 5 MG TAB PO SCH ×3 (08:22→19:52)
[2021-06-13] MEDS: PROPRANOLOL HCL 60 MG LA CAP PO SCH (08:22)
[2021-06-13] MEDS: DOCUSATE SODIUM 100 MG CAP PO SCH ×2 (08:22→19:54)
[2021-06-13] MEDS: CYANOCOBALAMIN 500 MCG TABLET (VITAMIN B-12) PO SCH (08:23)
[2021-06-13] MEDS: MICONAZOLE NITRATE POWDER 43 GM EXT SCH ×2 (08:24→19:53)
[2021-06-13] MEDS: MAGNESIUM OXIDE 400 MG TAB PO SCH (12:47)
--- NOTE | 2021-06-13 19:18 | Billing Data ---
Date of Service June 13, 2021 Coding Level of Care Code 83251 Subseq Hosp Care Lvl 1
[2021-06-13] MEDS: RIVAROXABAN 20 MG TAB PO SCH (19:51)
[2021-06-13] MEDS: AMITRIPTYLINE HCL 50 MG TAB PO SCH (19:51)
[2021-06-13] MEDS: CITALOPRAM 40 MG TAB PO SCH (19:53)
[2021-06-13] MEDS: SENNA 8.6 MG TAB PO SCH (19:53)
[2021-06-14] MEDS: ACETAMINOPHEN 500 MG TAB PO SCH ×3 (06:11→21:24)
[2021-06-14 06:34] LABS: Basophils # (auto) 0.01 K/uL (0-0.2); Basophils % (auto) 0.2 %; Eosinophils # (auto) 0.17 K/uL (0-0.5); Eosinophils % (auto) 2.7 %; Hematocrit (blood only) 37.2 % (37-47); Hemoglobin 12.1 g/dL (12.0-16.0); Immature Granulocytes # (auto) 0.01 K/uL (0.00-0.02); Immature Granulocytes % (auto) 0.2 %; Lymphocytes # (auto) 0.91 K/uL (1.2-3.4); Lymphocytes % (auto) 14.4 %; Mean Corpuscular Hemoglobin 27.6 pg (25-34); Mean Corpuscular Hgb Conc 32.5 g/dL (32-36); Mean Corpuscular Volume 84.7 fL (80-100); Mean Platelet Volume 8.7 fL (7.4-10.4); Monocytes # (auto) 0.44 K/uL (0.11-0.59); Neutrophils # (auto) 4.76 K/uL (1.4-6.5); Neutrophils % (auto) 75.5 %; Platelet Count 228 K/uL (130-400); RDW Coefficient of Variation 15.7 % (11.5-14.5); RDW Standard Deviation 48.2 fL (36.4-46.3); Red Blood Count 4.39 M/uL (4.2-5.4)
[2021-06-14 07:13] LABS: BUN Creatinine Ratio 17.2 (10-20); Calcium 9.4 mg/dl (8.5-10.1); Creatinine Clr Calc Pharmacy 121.1 ml/min; Est GFR (African American) 110.2 ml/min; Est GFR (Non-African American) 95.1 ml/min; Potassium 4.1 mmol/L (3.5-5.1)
--- NOTE | 2021-06-14 08:27 | Hospitalist Progress Note ---
Date of Service June 14, 2021 Assessment & Plan (1) Ankle dislocation: Plan: 60yo female with DM2 and history of PE presents after dislocating her recently- repaired right-sided Maisonneuve ankle fracture. Ankle dislocation s/p open reduction & external fixation (06/03) by ortho with irrigation & debridement of ankle wound Given open wound (down to bone) --> continue doxycycline/cephalexin therapy for a total of 10-14 days, end 06/17/21 Pain control (achieving) -- mild-tylenol / moderate-oxycodone / severe- dilauded PT/OT consulted -- recs for inpt vs SNF, CM assisting with placement; referral made to [facility] plans to re-evaluate on 06/17 History of pulmonary embolism Continue home xarelto LIMA Continue home citalopram, and hydroxyzine, and lorazepam Patient will attempt to refrain from lorazepam at night. If unsuccessful --> consider trazodone Home buspar increased from 10mg bid to 10mg tid Continue to monitor Migraine Continue amitriptyline, propranolol for prophylaxis Anemia Chronic, stable, normocytic No intervention indicated at this time FEN: DM2, heart-healthy diet Code status: full code DVT ppx: xarelto PT/OT: ordered Case management: following Dispo: med/surg Admission and Anticipated Discharge Date Admission Date: June 01, 2021 Supervising Physician Co-Signing Physician Notes I personally examined the patient and verified all olmos points of history and exam, discussed case, and agree with decision making with Dr Chaney no new complaints Vitals noted, in general she is awake and alert pleasant no distress. HEENT normocephalic atraumatic mucous membranes are moist. Breathing unlabored no accessory muscle use good effort. Skin shows no rashes no pallor or icterus. Neuro without focal deficits. Ankle wrapped, external fixator in place Open fracture of anklenow postop, overall management per orthopedics. Morbid obesity with BMI of 68.2 definitely plays a role. resume xarelto. type 1 or 2 open fracture per orthopedic assessment.d/w ortho - will eval again soon stable for placement and outpt f/u once available, but ongoing ortho input given her prolonged inpt stay Subjective Patient seen and evaluated at bedside this morning. No acute events overnight. Patient feels well today and complains only of boredom. Patient is in good spirits today. Patient denies CP, SOB, abdominal pain, nausea, vomiting, lightheadedness, dizziness, and diarrhea. Review of Systems Review of Systems: See HPI Physical Exam Physical Exam: Constitutional: well-appearing, NAD CV: regular rhythm, no murmur appreciated Resp: CTABL, no wheezes/rales/rhonchi appreciated MSK: right ankle wrapped Neuro: AOx4, no focal neurological deficits appreciated Results & Data Results & Data ([facility]) Vital Signs (Past 12 Hours) Vital Signs Temp Pulse Resp BP BP Pulse Ox 06/14/21 07:58 36.4 C L 69 16 144/79 H 95 06/13/21 23:02 36.5 C 65 17 125/65 95 Resident Activity Tracking Resident Involvement: Resident Care Provided Care Provided: Adult Hospital Medicine (1) Ankle dislocation Encounter type: initial encounter Laterality: right Qualified Code(s): S93.04XA - Dislocation of right ankle joint, initial encounter
[2021-06-14] MEDS: PROPRANOLOL HCL 60 MG LA CAP PO SCH (08:46)
[2021-06-14] MEDS: DOCUSATE SODIUM 100 MG CAP PO SCH ×2 (08:46→21:23)
[2021-06-14] MEDS: MULTIVITAMIN TAB PO SCH (08:46)
[2021-06-14] MEDS: busPIRone 5 MG TAB PO SCH ×3 (08:46→21:23)
[2021-06-14] MEDS: PROPRANOLOL HCL LA 80 MG CAPCR PO SCH (08:46)
[2021-06-14] MEDS: CYANOCOBALAMIN 500 MCG TABLET (VITAMIN B-12) PO SCH (08:47)
[2021-06-14] MEDS: MICONAZOLE NITRATE POWDER 43 GM EXT SCH ×2 (08:47→21:24)
[2021-06-14] MEDS: MAGNESIUM OXIDE 400 MG TAB PO SCH (13:37)
[2021-06-14] MEDS: RIVAROXABAN 20 MG TAB PO SCH (21:23)
[2021-06-14] MEDS: CITALOPRAM 40 MG TAB PO SCH (21:23)
[2021-06-14] MEDS: AMITRIPTYLINE HCL 50 MG TAB PO SCH (21:23)
[2021-06-14] MEDS: SENNA 8.6 MG TAB PO SCH (21:24)
[2021-06-15] MEDS: ACETAMINOPHEN 500 MG TAB PO SCH ×3 (06:01→21:42)
--- NOTE | 2021-06-15 06:47 | Hospitalist Progress Note ---
Date of Service June 15, 2021 Assessment & Plan (1) Ankle dislocation: Plan: 60yo female with DM2 and history of PE presents after dislocating her recently- repaired right-sided Maisonneuve ankle fracture. Ankle dislocation s/p open reduction & external fixation (06/03) by ortho with irrigation & debridement of ankle wound Given open wound (down to bone) --> continue doxycycline/cephalexin therapy for a total of 10-14 days, end 06/17/21 Pain control (achieving) -- mild-tylenol / moderate-oxycodone / severe- dilauded PT/OT consulted -- recs for inpt vs SNF, CM assisting with placement; referral made to [facility] 06/15: ortho PA reevaluated patient: "Discussed case with Dr. Desai concerning wounds over the lateral and medial RLE. Wounds impeding surgery at this time. He states to give the wounds another week and we will re-assess at that time for possible final surgery. Orders placed for qod dressing changes." History of pulmonary embolism Continue home xarelto LIMA Continue home citalopram, and hydroxyzine, and lorazepam Patient will attempt to refrain from lorazepam at night. If unsuccessful --> consider trazodone Home buspar increased from 10mg bid to 10mg tid Continue to monitor Migraine Continue amitriptyline, propranolol for prophylaxis Anemia Chronic, stable, normocytic No intervention indicated at this time FEN: DM2, heart-healthy diet Code status: full code DVT ppx: xarelto PT/OT: ordered Case management: following Dispo: med/surg Admission and Anticipated Discharge Date Admission Date: June 01, 2021 Supervising Physician Co-Signing Physician Notes I personally examined the patient and verified all olmos points of history and exam, discussed case, and agree with decision making with Dr Chaney no new complaints, ortho changing dressing at the time i see her Vitals noted, in general she is awake and alert pleasant no distress. HEENT normocephalic atraumatic mucous membranes are moist. Breathing unlabored no accessory muscle use good effort. Skin shows no rashes no pallor or icterus. Neuro without focal deficits. external fixator in place, ulcer, no erythema Open fracture of anklenow postop, overall management per orthopedics. Morbid obesity with BMI of 68.2 definitely plays a role. resume xarelto. type 1 or 2 open fracture per orthopedic assessment.d/w ortho - ongoing local care for now stable for placement and outpt f/u once available, but ongoing ortho input given her prolonged inpt stay Subjective Patient seen and evaluated at bedside this morning. No acute events overnight. Patient feels well today and has no acute complaints. Patient feels less anxious than yesterday, but endorses being eager to leave the hospital. Patient denies CP, SOB, abdominal pain, nausea, vomiting, lightheadedness, dizziness, and diarrhea. Review of Systems Review of Systems: See HPI Physical Exam Physical Exam: Constitutional: well-appearing, NAD CV: regular rhythm, no murmur appreciated Resp: CTABL, no wheezes/rales/rhonchi appreciated MSK: right ankle wrapped Neuro: AOx4, no focal neurological deficits appreciated Results & Data Results & Data ([facility]) Vital Signs (Past 12 Hours) Vital Signs Temp Pulse Resp BP Pulse Ox 06/14/21 22:45 36.5 C 65 18 124/70 98 Resident Activity Tracking Resident Involvement: Resident Care Provided Care Provided: Adult Hospital Medicine (1) Ankle dislocation Encounter type: initial encounter Laterality: right Qualified Code(s): S93.04XA - Dislocation of right ankle joint, initial encounter
[2021-06-15 06:51] LABS: BUN Creatinine Ratio 15.4 (10-20); Calcium 9.3 mg/dl (8.5-10.1); Creatinine Clr Calc Pharmacy 124.7 ml/min; Est GFR (African American) 111.3 ml/min; Potassium 4.1 mmol/L (3.5-5.1)
[2021-06-15] MEDS: busPIRone 5 MG TAB PO SCH ×3 (09:36→20:41)
[2021-06-15] MEDS: ERGOCALCIFEROL 50,000 UNITS 1250 MCG CAP PO SCH (09:37)
[2021-06-15] MEDS: PROPRANOLOL HCL 60 MG LA CAP PO SCH (09:38)
[2021-06-15] MEDS: PROPRANOLOL HCL LA 80 MG CAPCR PO SCH (09:40)
[2021-06-15] MEDS: MULTIVITAMIN TAB PO SCH (09:40)
[2021-06-15] MEDS: CYANOCOBALAMIN 500 MCG TABLET (VITAMIN B-12) PO SCH (09:41)
--- NOTE | 2021-06-15 09:41 | Orthopedic Progress Note ---
Date of Service June 15, 2021 Assessment & Plan (1) Type I or II open fracture dislocation of right ankle: Plan: 60 yo female stable POD #12 s/p right ankle removal hardware, I&D, perc pinning lateral malleolus, application ex fix s/p recent open ankle fx/dislocation Will discuss wounds with Dr. Desai. Possible wound review on Sunday and question of possible ORIF. Await Dr Desai's input. Medical Management [facility] planning - difficulty placing patient at this time. Admission and Anticipated Discharge Date Admission Date: June 01, 2021 Subjective POD 12 Pt sitting up in bed. Awake, alert. No complaints. Hoping she can have final surgery soon. Physical Exam Physical Exam: Dressings removed. All pin sites looking benign. No drainage/purulence. Medial wound above the ankle with eschar covering all of wound. No erythema or drainage. Approx 3cm A to P, 2cm proximal to distal. Sutured wound well approximated. Lateral wound with sutures intact. Larger wound with eschar noted without purulence or drainage. Eschar approx 4-5 cm long, 2cm wide. All wounds and pin sites redressed with adaptic, 4x4's, kerlix, and bandar wrap. Swelling overall of the ankle is down. Pt tolerated dressing change well. Results & Data ([facility]) Vital Signs (Past 12 Hours) Vital Signs Temp Pulse Resp BP Pulse Ox 06/14/21 22:45 36.5 C 65 18 124/70 98
[2021-06-15] MEDS: DOCUSATE SODIUM 100 MG CAP PO SCH ×2 (09:42→20:39)
[2021-06-15] MEDS: MICONAZOLE NITRATE POWDER 43 GM EXT SCH ×2 (09:43→20:40)
[2021-06-15] MEDS: MAGNESIUM OXIDE 400 MG TAB PO SCH (12:58)
--- NOTE | 2021-06-15 19:09 | Billing Data ---
Date of Service June 14, 2021 Coding Level of Care Code 17100 Subseq Hosp Care Lvl 1
[2021-06-15] MEDS: AMITRIPTYLINE HCL 50 MG TAB PO SCH (20:39)
[2021-06-15] MEDS: CITALOPRAM 40 MG TAB PO SCH (20:39)
[2021-06-15] MEDS: SENNA 8.6 MG TAB PO SCH (20:39)
[2021-06-15] MEDS: RIVAROXABAN 20 MG TAB PO SCH (20:40)
[2021-06-16] MEDS: ACETAMINOPHEN 500 MG TAB PO SCH ×3 (05:39→21:13)
--- NOTE | 2021-06-16 06:43 | Hospitalist Progress Note ---
Date of Service June 16, 2021 Assessment & Plan (1) Ankle dislocation: Plan: 60yo female with DM2 and history of PE presents after dislocating her recently- repaired right-sided Maisonneuve ankle fracture. Ankle dislocation s/p open reduction & external fixation (06/03) by ortho with irrigation & debridement of ankle wound Given open wound (down to bone) --> continue doxycycline/cephalexin therapy for a total of 10-14 days, end 06/17/21 Pain control (achieving) -- mild-tylenol / moderate-oxycodone / severe- dilauded PT/OT consulted and recommends for inpatient rehab vs SNF, CM assisting with placement 06/15: ortho reevaluated patient: lateral and medial RLE wounds concerning and impeding surgical intervention; plan to wait one week before reassessing Continue to monitor History of pulmonary embolism Continue home xarelto LIMA Continue home citalopram, and hydroxyzine, and lorazepam Patient will attempt to refrain from lorazepam at night. If unsuccessful --> consider trazodone Home buspar increased from 10mg bid to 10mg tid Continue to monitor Migraine Continue amitriptyline, propranolol for prophylaxis Anemia Chronic, stable, normocytic No intervention indicated at this time FEN: DM2, heart-healthy diet Code status: full code DVT ppx: caserelliz PT/OT: ordered Case management: following Dispo: med/surg Admission and Anticipated Discharge Date Admission Date: June 01, 2021 Supervising Physician Co-Signing Physician Notes I personally examined the patient and verified all olmos points of history and exam, discussed case, and agree with decision making with Dr Chaney doing ok, no new complaints Vitals noted, in general she is awake and alert pleasant no distress. HEENT normocephalic atraumatic mucous membranes are moist. Breathing unlabored no a ccessory muscle use good effort. Skin shows no rashes no pallor or icterus. Neuro without focal deficits. external fixator in place, ankle dressed Open fracture of anklenow postop, overall management per orthopedics. Morbid obesity with BMI of 68.2 definitely plays a role. xarelto. type 1 or 2 open fracture per orthopedic assessment.d/w ortho - ongoing local care for now. doing OK overall stable for placement and outpt f/u once available, but ongoing ortho input given her prolonged inpt stay Subjective Patient seen and evaluated at bedside this morning. No acute events overnight. Patient feels well today, no new symptoms or complaints. Anxiety mild and well- controlled. Patient denies CP, SOB, abdominal pain, nausea, vomiting, l ightheadedness, dizziness, and diarrhea. Review of Systems Review of Systems: See HPI Physical Exam Physical Exam: Constitutional: well-appearing, NAD, sitting up in bed CV: regular rhythm, no murmur appreciated Resp: CTABL, no wheezes/rales/rhonchi appreciated MSK: right ankle wrapped, hardware noted Neuro: AOx4, no focal neurological deficits appreciated Results & Data Results & Data ([facility]) Vital Signs (Past 12 Hours) Vital Signs Temp Pulse Resp BP Pulse Ox 06/15/21 22:20 36.6 C 67 24 130/69 96 Resident Activity Tracking Resident Involvement: Resident Care Provided Care Provided: Adult Hospital Medicine (1) Ankle dislocation Encounter type: initial encounter Laterality: right Qualified Code(s): S93.04XA - Dislocation of right ankle joint, initial encounter
[2021-06-16] MEDS: CYANOCOBALAMIN 500 MCG TABLET (VITAMIN B-12) PO SCH (09:18)
[2021-06-16] MEDS: busPIRone 5 MG TAB PO SCH ×3 (09:18→21:12)
[2021-06-16] MEDS: MICONAZOLE NITRATE POWDER 43 GM EXT SCH ×2 (09:19→21:13)
[2021-06-16] MEDS: MULTIVITAMIN TAB PO SCH (09:20)
[2021-06-16] MEDS: PROPRANOLOL HCL 60 MG LA CAP PO SCH (09:20)
[2021-06-16] MEDS: PROPRANOLOL HCL LA 80 MG CAPCR PO SCH (09:21)
[2021-06-16] MEDS: DOCUSATE SODIUM 100 MG CAP PO SCH ×2 (09:34→21:12)
[2021-06-16] MEDS: MAGNESIUM OXIDE 400 MG TAB PO SCH (11:52)
--- NOTE | 2021-06-16 18:36 | Billing Data ---
Date of Service June 16, 2021 Coding Level of Care Code 93940 Subseq Hosp Care Lvl 1
[2021-06-16] MEDS: CITALOPRAM 40 MG TAB PO SCH (21:12)
[2021-06-16] MEDS: AMITRIPTYLINE HCL 50 MG TAB PO SCH (21:12)
[2021-06-16] MEDS: SENNA 8.6 MG TAB PO SCH (21:12)
[2021-06-16] MEDS: RIVAROXABAN 20 MG TAB PO SCH (21:13)
[2021-06-17] MEDS: ACETAMINOPHEN 500 MG TAB PO SCH ×3 (05:52→21:11)
[2021-06-17 06:45] LABS: Basophils # (auto) 0.02 K/uL (0-0.2); Basophils % (auto) 0.3 %; Eosinophils # (auto) 0.14 K/uL (0-0.5); Eosinophils % (auto) 2.2 %; Hematocrit (blood only) 38.7 % (37-47); Hemoglobin 12.2 g/dL (12.0-16.0); Immature Granulocytes # (auto) 0.01 K/uL (0.00-0.02); Immature Granulocytes % (auto) 0.2 %; Lymphocytes % (auto) 17.4 %; Mean Corpuscular Hemoglobin 27.5 pg (25-34); Mean Corpuscular Hgb Conc 31.5 g/dL (32-36); Mean Corpuscular Volume 87.4 fL (80-100); Mean Platelet Volume 8.9 fL (7.4-10.4); Monocytes # (auto) 0.46 K/uL (0.11-0.59); Monocytes % (auto) 7.3 %; Neutrophils % (auto) 72.6 %; Platelet Count 239 K/uL (130-400); RDW Coefficient of Variation 15.9 % (11.5-14.5); RDW Standard Deviation 51.2 fL (36.4-46.3); Red Blood Count 4.43 M/uL (4.2-5.4); White Blood Count 6.33 K/uL (4.8-10.8)
--- NOTE | 2021-06-17 07:05 | Hospitalist Progress Note ---
Date of Service June 17, 2021 Assessment & Plan (1) Ankle dislocation: Plan: 60yo female with DM2 and history of PE presents after dislocating her recently- repaired right-sided Maisonneuve ankle fracture. Ankle dislocation s/p open reduction & external fixation (06/03) by ortho with irrigation & debridement of ankle wound Given open wound (down to bone) --> continue doxycycline/cephalexin therapy for a total of 10-14 days, end 06/17/21 Pain control (achieving) -- mild-tylenol / moderate-oxycodone / severe- dilauded PT/OT consulted and recommends for inpatient rehab vs SNF, CM assisting with placement 06/15: ortho reevaluated patient: lateral and medial RLE wounds concerning and impeding surgical intervention; plan to wait one week before reassessing Continue to monitor History of pulmonary embolism Continue home xarelto LIMA Continue home citalopram, and hydroxyzine, and lorazepam Patient will attempt to refrain from lorazepam at night. If unsuccessful --> consider trazodone Home buspar increased from 10mg bid to 10mg tid Continue to monitor Migraine Continue amitriptyline, propranolol for prophylaxis Anemia Chronic, stable, normocytic No intervention indicated at this time FEN: DM2, heart-healthy diet Code status: full code DVT ppx: caserelliz PT/OT: ordered Case management: following Dispo: med/surg Admission and Anticipated Discharge Date Admission Date: June 01, 2021 Supervising Physician Co-Signing Physician Notes I personally examined the patient and verified all olmos points of history and exam, discussed case, and agree with decision making with Dr Chaney doing ok, no new complaints. wondering about future surgery Vitals noted, in general she is awake and alert pleasant no distress. HEENT normocephalic atraumatic mucous membranes are moist. Breathing unlabored no accessory muscle use good effort. Skin shows no rashes no pallor or icterus. Neuro without focal deficits. external fixator in place, ankle dressed Open fracture of anklenow postop, overall management per orthopedics - expectant for now. Morbid obesity with BMI of 68.2 definitely plays a role. xarelto. type 1 or 2 open fracture per orthopedic assessment.d/w ortho - ongoing local care for now. doing OK overall stable for placement and outpt f/u once available, but ongoing ortho input given her prolonged inpt stay Subjective Patient seen and evaluated at bedside this morning. No acute events overnight. Patient feels well today, no new symptoms or complaints. Anxiety mild, patient likes buspar three times a day vs her previous regimen of two - patient is also happy she hasn't required ativan in a while. Patient denies CP, SOB, abdominal pain, nausea, vomiting, lightheadedness, dizziness, and diarrhea. Review of Systems Review of Systems: See HPI Physical Exam Physical Exam: Constitutional: well-appearing, NAD, laying in bed, pleasant, cooperative CV: regular rhythm, no murmur appreciated Resp: CTABL MSK: right ankle bandaged Neuro: AOx4, no focal neurological deficits appreciated Results & Data Results & Data ([facility]) Vital Signs (Past 12 Hours) Vital Signs Temp Pulse Resp BP Pulse Ox 06/16/21 22:32 36.6 C 66 17 121/64 96 Resident Activity Tracking Resident Involvement: Resident Care Provided Care Provided: Adult Hospital Medicine (1) Ankle dislocation Encounter type: initial encounter Laterality: right Qualified Code(s): S93.04XA - Dislocation of right ankle joint, initial encounter
[2021-06-17 07:12] LABS: BUN Creatinine Ratio 16.2 (10-20); Calcium 9.5 mg/dl (8.5-10.1); Creatinine Clr Calc Pharmacy 126.6 ml/min; Est GFR (African American) 111.8 ml/min; Est GFR (Non-African American) 96.5 ml/min; Magnesium 2.2 mg/dl (1.8-2.4); Potassium 4.1 mmol/L (3.5-5.1)
[2021-06-17 07:13] LABS: Phosphorus 4.3 mg/dl (2.5-4.9)
[2021-06-17] MEDS: CYANOCOBALAMIN 500 MCG TABLET (VITAMIN B-12) PO SCH (08:49)
[2021-06-17] MEDS: DOCUSATE SODIUM 100 MG CAP PO SCH ×2 (08:49→21:07)
[2021-06-17] MEDS: PROPRANOLOL HCL LA 80 MG CAPCR PO SCH (08:49)
[2021-06-17] MEDS: MULTIVITAMIN TAB PO SCH (08:49)
[2021-06-17] MEDS: PROPRANOLOL HCL 60 MG LA CAP PO SCH (08:49)
[2021-06-17] MEDS: MICONAZOLE NITRATE POWDER 43 GM EXT SCH ×2 (08:50→21:08)
[2021-06-17] MEDS: busPIRone 5 MG TAB PO SCH ×3 (08:50→21:06)
[2021-06-17] MEDS: MAGNESIUM OXIDE 400 MG TAB PO SCH (13:06)
--- NOTE | 2021-06-17 18:54 | Billing Data ---
Date of Service June 17, 2021 Coding Level of Care Code 94982 Subseq Hosp Care Lvl 1
[2021-06-17] MEDS: AMITRIPTYLINE HCL 50 MG TAB PO SCH (21:05)
[2021-06-17] MEDS: RIVAROXABAN 20 MG TAB PO SCH (21:06)
[2021-06-17] MEDS: CITALOPRAM 40 MG TAB PO SCH (21:06)
[2021-06-17] MEDS: SENNA 8.6 MG TAB PO SCH (21:06)
[2021-06-18] MEDS: ACETAMINOPHEN 500 MG TAB PO SCH ×3 (06:03→21:05)
--- NOTE | 2021-06-18 06:56 | Hospitalist Progress Note ---
Date of Service June 18, 2021 Assessment & Plan (1) Ankle dislocation: Plan: 60yo female with DM2 and history of PE presents after dislocating her recently- repaired right-sided Maisonneuve ankle fracture. Ankle dislocation s/p open reduction & external fixation (06/03) by ortho with irrigation & debridement of ankle wound Given open wound (down to bone) --> continue doxycycline/cephalexin therapy for a total of 10-14 days, end 06/17/21 Pain control (achieving) -- mild-tylenol / moderate-oxycodone / severe- dilauded PT/OT consulted and recommends for inpatient rehab vs SNF, CM assisting with placement 06/15: ortho reevaluated patient: lateral and medial RLE wounds concerning and impeding surgical intervention; plan to wait one week before reassessing Continue to monitor History of pulmonary embolism Continue home xarelto LIMA Continue home citalopram, and hydroxyzine, and lorazepam Patient will attempt to refrain from lorazepam at night. If unsuccessful --> consider trazodone Home buspar increased from 10mg bid to 10mg tid Continue to monitor Migraine Continue amitriptyline, propranolol for prophylaxis Anemia Chronic, stable, normocytic No intervention indicated at this time FEN: DM2, heart-healthy diet Code status: full code DVT ppx: caserelliz PT/OT: ordered Case management: following Dispo: med/surg Admission and Anticipated Discharge Date Admission Date: June 01, 2021 Supervising Physician Co-Signing Physician Notes I personally examined the patient and verified all olmos points of history and exam, discussed case, and agree with decision making with Dr Chaney doing the same, no new complaints. wondering about future surgery Vitals noted, in general she is awake and alert pleasant no distress. HEENT normocephalic atraumatic mucous membranes are moist. Breathing unlabored no accessory muscle use good effort. Skin shows no rashes no pallor or icterus. Neuro without focal deficits. external fixator in place, ankle dressed Open fracture of anklenow postop, overall management per orthopedics - expectant for now, repeat surgery soon but not yet able to be defined time frame. Morbid obesity with BMI of 68.2 definitely plays a role. xarelto. type 1 or 2 open fracture per orthopedic assessment.d/w ortho - ongoing local care for now. doing OK overall stable for placement and outpt f/u once available, but ongoing ortho input given her prolonged inpt stay Subjective Patient seen and evaluated at bedside this morning. No acute events overnight. Patient feels well today, no new symptoms or complaints. No ankle pain. Anxiety tolerable. Patient denies CP, SOB, abdominal pain, nausea, dizziness, and diarrhea. Review of Systems Review of Systems: See HPI Physical Exam Physical Exam: Constitutional: well-appearing, NAD, laying in bed eating breakfast CV: regular rhythm, no murmur appreciated Resp: CTABL, breathing non-labored MSK: right ankle wrapped Neuro: AOx4, no focal neurological deficits appreciated Results & Data Results & Data ([facility]) Vital Signs (Past 12 Hours) Vital Signs Temp Pulse Resp BP Pulse Ox 06/17/21 23:03 36.6 C 68 17 119/70 95 Resident Activity Tracking Resident Involvement: Resident Care Provided Care Provided: Adult Hospital Medicine (1) Ankle dislocation Encounter type: initial encounter Laterality: right Qualified Code(s): S93.04XA - Dislocation of right ankle joint, initial encounter
[2021-06-18] MEDS: busPIRone 5 MG TAB PO SCH ×3 (07:28→21:03)
[2021-06-18] MEDS: DOCUSATE SODIUM 100 MG CAP PO SCH ×2 (07:29→21:03)
[2021-06-18] MEDS: CYANOCOBALAMIN 500 MCG TABLET (VITAMIN B-12) PO SCH (07:29)
[2021-06-18] MEDS: PROPRANOLOL HCL 60 MG LA CAP PO SCH (07:29)
[2021-06-18] MEDS: MULTIVITAMIN TAB PO SCH (07:29)
[2021-06-18] MEDS: PROPRANOLOL HCL LA 80 MG CAPCR PO SCH (07:29)
[2021-06-18] MEDS: MICONAZOLE NITRATE POWDER 43 GM EXT SCH ×2 (07:30→21:07)
[2021-06-18] MEDS: MAGNESIUM OXIDE 400 MG TAB PO SCH (12:54)
--- NOTE | 2021-06-18 18:34 | Billing Data ---
Date of Service June 18, 2021 Coding Level of Care Code 70722 Subseq Hosp Care Lvl 1
[2021-06-18] MEDS: AMITRIPTYLINE HCL 50 MG TAB PO SCH (21:02)
[2021-06-18] MEDS: CITALOPRAM 40 MG TAB PO SCH (21:03)
[2021-06-18] MEDS: RIVAROXABAN 20 MG TAB PO SCH (21:04)
[2021-06-18] MEDS: SENNA 8.6 MG TAB PO SCH (21:04)
[2021-06-19] MEDS: ACETAMINOPHEN 500 MG TAB PO SCH ×3 (06:19→21:00)
--- NOTE | 2021-06-19 07:30 | Hospitalist Progress Note ---
Date of Service June 19, 2021 Assessment & Plan (1) Ankle dislocation: Plan: 60yo female with DM2 and history of PE presents after dislocating her recently- repaired right-sided Maisonneuve ankle fracture. Ankle dislocation s/p open reduction & external fixation (06/03) by ortho with irrigation & debridement of ankle wound Given open wound (down to bone) --> continue doxycycline/cephalexin therapy for a total of 10-14 days, end 06/17/21 Pain control (achieving) -- mild-tylenol / moderate-oxycodone / severe- dilauded PT/OT consulted and recommends for inpatient rehab vs SNF, CM assisting with placement 06/15: ortho reevaluated patient: lateral and medial RLE wounds concerning and impeding surgical intervention; plan to wait one week before reassessing Continue to monitor History of pulmonary embolism Continue home xarelto LIMA Continue home citalopram, and hydroxyzine, and lorazepam; initially required additional lorazepam prn, but has not needed it since increasing buspar (below) Continue buspar at 10mg tid (increased from home regimen of 10mg bid) Continue to monitor Migraine Continue amitriptyline, propranolol for prophylaxis Anemia Chronic, stable, normocytic No intervention indicated at this time FEN: DM2, heart-healthy diet Code status: full code DVT ppx: xarelto PT/OT: ordered Case management: following Dispo: med/surg Admission and Anticipated Discharge Date Admission Date: June 01, 2021 Supervising Physician Co-Signing Physician Notes I personally examined the patient and verified all olmos points of history and exam, discussed case, and agree with decision making with Dr Chaney Working with therapyappears to be putting in good effort. Vitals noted, in general she is awake and alert pleasant no distress. HEENT normocephalic atraumatic mucous membranes are moist. Breathing unlabored no accessory muscle use good effort. Skin shows no rashes no pallor or icterus. Neuro without focal deficits. external fixator in place, ankle dressed Open fracture of anklenow postop, overall management per orthopedics - expectant for now, repeat surgery soon but not yet able to be defined time frame. Morbid obesity with BMI of 68.2 definitely plays a role. xarelto. type 1 or 2 open fracture per orthopedic assessment.d/w ortho - ongoing local care for now. Ongoing therapy. stable for placement and outpt f/u once available, but ongoing ortho input given her prolonged inpt stay Subjective Patient seen and evaluated at bedside. No acute events overnight. Patient feels "pretty good" today, no new symptoms, no ankle/foot pain, anxiety well- controlled at this time. Denies CP, SOB, abdominal pain, nausea, and diarrhea. Review of Systems Review of Systems: See HPI Physical Exam Physical Exam: Constitutional: well-appearing, pleasant, laying in bed CV: regular rhythm, no appreciable murmur Resp: CTABL, breathing non-labored MSK: right ankle dressed and wrapped Neuro: alert, oriented, no focal neurological deficits appreciated Results & Data Results & Data ([facility]) Vital Signs (Past 12 Hours) Vital Signs Temp Pulse Resp BP Pulse Ox 06/18/21 23:25 36.6 C 65 17 124/74 93 Resident Activity Tracking Resident Involvement: Resident Care Provided Care Provided: Adult Hospital Medicine (1) Ankle dislocation Encounter type: initial encounter Laterality: right Qualified Code(s): S93.04XA - Dislocation of right ankle joint, initial encounter
[2021-06-19] MEDS: PROPRANOLOL HCL LA 80 MG CAPCR PO SCH (08:57)
[2021-06-19] MEDS: MULTIVITAMIN TAB PO SCH (08:57)
[2021-06-19] MEDS: MICONAZOLE NITRATE POWDER 43 GM EXT SCH ×2 (08:58→20:58)
[2021-06-19] MEDS: PROPRANOLOL HCL 60 MG LA CAP PO SCH (08:58)
[2021-06-19] MEDS: DOCUSATE SODIUM 100 MG CAP PO SCH ×2 (08:58→20:56)
[2021-06-19] MEDS: busPIRone 5 MG TAB PO SCH ×3 (08:58→20:55)
[2021-06-19] MEDS: CYANOCOBALAMIN 500 MCG TABLET (VITAMIN B-12) PO SCH (08:58)
[2021-06-19] MEDS: MAGNESIUM OXIDE 400 MG TAB PO SCH (13:49)
--- NOTE | 2021-06-19 19:38 | Billing Data ---
Date of Service June 19, 2021 Coding Level of Care Code 86459 Subseq Hosp Care Lvl 1
[2021-06-19] MEDS: AMITRIPTYLINE HCL 50 MG TAB PO SCH (20:54)
[2021-06-19] MEDS: CITALOPRAM 40 MG TAB PO SCH (20:55)
[2021-06-19] MEDS: RIVAROXABAN 20 MG TAB PO SCH (20:56)
[2021-06-19] MEDS: SENNA 8.6 MG TAB PO SCH (20:56)
[2021-06-20] MEDS: ACETAMINOPHEN 500 MG TAB PO SCH ×3 (05:56→21:17)
[2021-06-20 06:43] LABS: Basophils # (auto) 0.01 K/uL (0-0.2); Basophils % (auto) 0.2 %; Eosinophils # (auto) 0.15 K/uL (0-0.5); Eosinophils % (auto) 2.4 %; Hematocrit (blood only) 37.4 % (37-47); Hemoglobin 11.8 g/dL (12.0-16.0); Immature Granulocytes # (auto) 0.01 K/uL (0.00-0.02); Immature Granulocytes % (auto) 0.2 %; Lymphocytes # (auto) 1.02 K/uL (1.2-3.4); Lymphocytes % (auto) 16.3 %; Mean Corpuscular Hemoglobin 27.6 pg (25-34); Mean Corpuscular Hgb Conc 31.6 g/dL (32-36); Mean Corpuscular Volume 87.4 fL (80-100); Mean Platelet Volume 8.9 fL (7.4-10.4); Monocytes # (auto) 0.42 K/uL (0.11-0.59); Monocytes % (auto) 6.7 %; Neutrophils # (auto) 4.66 K/uL (1.4-6.5); Neutrophils % (auto) 74.2 %; Platelet Count 249 K/uL (130-400); RDW Coefficient of Variation 15.7 % (11.5-14.5); RDW Standard Deviation 50.3 fL (36.4-46.3); Red Blood Count 4.28 M/uL (4.2-5.4); White Blood Count 6.27 K/uL (4.8-10.8)
--- NOTE | 2021-06-20 07:14 | Hospitalist Progress Note ---
Date of Service June 20, 2021 Assessment & Plan (1) Ankle dislocation: Plan: 60yo female with DM2 and history of PE presents after dislocating her recently-repaired right-sided Maisonneuve ankle fracture. Stable. Ankle dislocation s/p open reduction & external fixation (06/03) by ortho with irrigation & debridement of ankle wound Pain control (achieving) -- tylenol q8. narcotics d/c'd. Denies pain on 06/20/21 PT/OT consulted and recommends for inpatient rehab vs SNF, CM assisting with placement 06/15: ortho reevaluated patient: lateral and medial RLE wounds concerning and impeding surgical intervention; plan to wait one week before reassessing Continue to monitor History of pulmonary embolism Continue home xarelto LIMA Continue home citalopram, and hydroxyzine, and lorazepam; initially required additional lorazepam prn, but has not needed it since increasing buspar (below) Continue buspar at 10mg tid (increased from home regimen of 10mg bid) Continue to monitor Migraine Continue amitriptyline, propranolol for prophylaxis Anemia Chronic, stable, normocytic No intervention indicated at this time FEN: DM2, heart-healthy diet Code status: full code Anticoag: home xarelto 20 qhs Dispo: med/surg Admission and Anticipated Discharge Date Admission Date: June 01, 2021 Supervising Physician Co-Signing Physician Notes Resident Physician Supervision Note: I independently interviewed and examined the patient and verified the olmos history and physical, reviewed labs and image studies and agree with resident Dr. Mayen findings and care plan. Subjective Denies any symptoms. No pain. No f/c, cp, sob, numbness/tingling, wkness. Small BM yesterday. Review of Systems Review of Systems: All systems reviewed & are unremarkable except as noted in HPI & below Constitutional: Denies fever, chills, weight change Eyes: Denies blurry vision, vision changes ENT: Denies sore throat, sinus pain Cardiovascular: Denies chest pain, palpitations Respiratory: Denies shortness of breath Gastrointestinal: Denies abdominal pain, nausea, vomiting, constipation, diarrhea Genitourinary: Denies urinary symptoms including dysuria Musculoskeletal: Denies weakness, muscle aches/pain, joint aches/pain Neurological: Denies headache, numbness, tingling, focal weakness Physical Exam Physical Exam: General: Grossly A&O. NAD. Cooperative. HEENT: Atraumatic, normocephalic. EOMI Pulm: CTAB. -wheezes, -rales, -rhonchi. No respiratory distress. Cardiac: RRR, -mrg. Radial pulses intact and symmetrical. No edema of L ankle. Abdominal: Nontender, nondistended, soft. Msk: Wiggling toes of bilateral feet. RLE wrapped and has external fixator. Neuro: Sensation of toes intact. Integ: + venous stasis changes of L enriquez, chronic, w/ peeling. Results & Data Results & Data ([facility] [place]) Vital Signs (Past 12 Hours) Vital Signs vitals appropriate. sats 94-05, but had intermittent 90 on RA 06/19 AM. Temp Pulse Resp BP Pulse Ox 06/19/21 22:37 36.5 C 67 16 118/66 94 Temp Pulse Resp BP Pulse Ox 36.7 C 71 16 127/78 94 06/20/21 07:16 06/20/21 07:16 06/20/21 07:16 06/20/21 07:16 06/20/21 07:16 Laboratory Results no leukocytosis. Hb stable 11.8. electrolytes wnl. Cr 0.71. No new imaging or micro 06/20/21 05:54 06/20/21 05:54 Resident Activity Tracking Resident Involvement: Resident Care Provided Care Provided: Adult Hospital Medicine (1) Ankle dislocation Encounter type: initial encounter Laterality: right Qualified Code(s): S93.04XA - Dislocation of right ankle joint, initial encounter
[2021-06-20 07:15] LABS: BUN Creatinine Ratio 15.5 (10-20); Calcium 9.5 mg/dl (8.5-10.1); Creatinine Clr Calc Pharmacy 115.9 ml/min; Est GFR (African American) 107.3 ml/min; Est GFR (Non-African American) 92.6 ml/min; Potassium 4.1 mmol/L (3.5-5.1)
[2021-06-20] MEDS: MULTIVITAMIN TAB PO SCH (07:35)
[2021-06-20] MEDS: CYANOCOBALAMIN 500 MCG TABLET (VITAMIN B-12) PO SCH (07:36)
[2021-06-20] MEDS: DOCUSATE SODIUM 100 MG CAP PO SCH ×2 (07:36→21:15)
[2021-06-20] MEDS: PROPRANOLOL HCL LA 80 MG CAPCR PO SCH (07:36)
[2021-06-20] MEDS: PROPRANOLOL HCL 60 MG LA CAP PO SCH (07:36)
[2021-06-20] MEDS: busPIRone 5 MG TAB PO SCH ×3 (07:36→21:15)
[2021-06-20] MEDS: MICONAZOLE NITRATE POWDER 43 GM EXT SCH ×2 (07:37→21:16)
[2021-06-20] MEDS: LORazepam 0.5 MG TAB PO PRN (10:20)
[2021-06-20] MEDS: MAGNESIUM OXIDE 400 MG TAB PO SCH (12:26)
[2021-06-20] MEDS: AMITRIPTYLINE HCL 50 MG TAB PO SCH (21:14)
[2021-06-20] MEDS: CITALOPRAM 40 MG TAB PO SCH (21:15)
[2021-06-20] MEDS: SENNA 8.6 MG TAB PO SCH (21:16)
[2021-06-20] MEDS: RIVAROXABAN 20 MG TAB PO SCH (21:16)
[2021-06-21] MEDS: ACETAMINOPHEN 500 MG TAB PO SCH ×3 (05:19→22:50)
--- NOTE | 2021-06-21 07:17 | Hospitalist Progress Note ---
Date of Service June 21, 2021 Assessment & Plan (1) Ankle dislocation: Plan: 60yo female with DM2 and history of PE presents after dislocating her recently- repaired right-sided Maisonneuve ankle fracture. Stable. Ankle dislocation s/p open reduction & external fixation (06/03) by ortho with irrigation & debridement of ankle wound Pain control (achieving) -- tylenol q8. narcotics d/c'd. Denies pain on 06/20/21 PT/OT consulted and recommends for inpatient rehab vs SNF, CM assisting with placement 06/15: ortho reevaluated patient: lateral and medial RLE wounds concerning and impeding surgical intervention; plan to wait one week before reassessing - reached out to ortho; plans to reassess on 06/22 or 06/23 Continue to monitor History of pulmonary embolism Continue home xarelto General anxiety disorder Continue home citalopram, and hydroxyzine, and lorazepam; initially required additional lorazepam prn, but has not needed it since increasing buspar (below) Continue buspar at 10mg tid (increased from home regimen of 10mg bid) Continue to monitor Migraine Continue amitriptyline, propranolol for prophylaxis Anemia Chronic, stable, normocytic No intervention indicated at this time Type 2 diabetes mellitus Diet-controlled, A1c 5.6 06/07/21 FEN: DM2, heart-healthy diet Code status: full code Anticoag: home xarelto 20 qhs Dispo: med/surg (2) Hx pulmonary embolism: (3) Diabetic peripheral neuropathy associated with type 2 diabetes mellitus: (4) Morbid obesity: (5) Anemia: (6) Anxiety: Admission and Anticipated Discharge Date Admission Date: June 01, 2021 Supervising Physician Co-Signing Physician Notes Resident Physician Supervision Note: I independently interviewed and examined the patient and verified the olmos history and physical, reviewed labs and image studies and agree with resident Dr. Mayen findings and care plan. Subjective Feeling good today. Denies all ros. Last BM 2 days ago. Does not feel constipation. + flatus. Review of Systems Review of Systems: All systems reviewed & are unremarkable except as noted in HPI & below See HPI Physical Exam Physical Exam: General: Grossly A&O. NAD. Cooperative. Obese habitus. HEENT: Atraumatic, normocephalic. Pulm: CTAB anteriorly and laterally. -wheezes, -rales, -rhonchi. No respiratory distress. Cardiac: RRR, -mrg. No edema of L ankle. Abdominal: Nontender, nondistended, soft. Msk: Wiggling toes of bilateral feet. Able to move knees. RLE wrapped and has external fixator. Neuro: Sensation of toes intact. Integ: + venous stasis changes of L enriquez, chronic, w/ peeling. Results & Data Results & Data ([facility]) Vital Signs (Past 12 Hours) Vital Signs 92 on RA. Other vitals normal. Temp Pulse Pulse Resp BP BP Pulse Ox 06/21/21 07:04 36.8 C 67 16 136/74 92 06/20/21 22:23 36.7 C 68 16 118/67 92 Temp Pulse Resp BP Pulse Ox 36.8 C 67 16 136/74 92 06/21/21 07:04 06/21/21 07:04 06/21/21 07:04 06/21/21 07:04 06/21/21 07:04 Laboratory Results no new labs Resident Activity Tracking Resident Involvement: Resident Care Provided Care Provided: Adult Hospital Medicine (1) Ankle dislocation Encounter type: initial encounter Laterality: right Qualified Code(s): S93.04XA - Dislocation of right ankle joint, initial encounter
[2021-06-21] MEDS: PROPRANOLOL HCL 60 MG LA CAP PO SCH (07:56)
[2021-06-21] MEDS: CYANOCOBALAMIN 500 MCG TABLET (VITAMIN B-12) PO SCH (07:56)
[2021-06-21] MEDS: PROPRANOLOL HCL LA 80 MG CAPCR PO SCH (07:57)
[2021-06-21] MEDS: MULTIVITAMIN TAB PO SCH (07:57)
[2021-06-21] MEDS: MICONAZOLE NITRATE POWDER 43 GM EXT SCH ×2 (07:58→20:09)
[2021-06-21] MEDS: DOCUSATE SODIUM 100 MG CAP PO SCH ×2 (07:58→20:09)
[2021-06-21] MEDS: busPIRone 5 MG TAB PO SCH ×3 (07:58→20:08)
[2021-06-21] MEDS: MAGNESIUM OXIDE 400 MG TAB PO SCH (12:54)
[2021-06-21] MEDS: AMITRIPTYLINE HCL 50 MG TAB PO SCH (20:07)
[2021-06-21] MEDS: CITALOPRAM 40 MG TAB PO SCH (20:08)
[2021-06-21] MEDS: RIVAROXABAN 20 MG TAB PO SCH (20:09)
[2021-06-21] MEDS: SENNA 8.6 MG TAB PO SCH (20:09)
[2021-06-22] MEDS: ACETAMINOPHEN 500 MG TAB PO SCH ×3 (05:49→22:12)
--- NOTE | 2021-06-22 07:29 | Hospitalist Progress Note ---
Date of Service June 22, 2021 Assessment & Plan (1) Ankle dislocation: Plan: 60yo female with DM2 and history of PE presents after dislocating her recently- repaired right-sided Maisonneuve ankle fracture. Stable. Ankle dislocation s/p open reduction & external fixation (06/03) by ortho with irrigation & debridement of ankle wound Pain controlled w/ tylenol PT/OT consulted and recommends for inpatient rehab vs SNF, CM assisting with placement 06/15: ortho reevaluated patient: lateral and medial RLE wounds concerning and impeding surgical intervention; planning to reassess on 06/23 History of pulmonary embolism Continue home xarelto General anxiety disorder Continue home citalopram, and hydroxyzine, and lorazepam Continue buspar at 10mg tid (increased from home regimen of 10mg bid) Migraine Continue amitriptyline, propranolol for prophylaxis Anemia Chronic, stable, normocytic. Follow CBC. Type 2 diabetes mellitus Diet-controlled, A1c 5.6 06/07/21 FEN: regular diet Code status: full code Anticoag: home xarelto 20 qhs Dispo: med/surg (2) Hx pulmonary embolism: (3) Diabetic peripheral neuropathy associated with type 2 diabetes mellitus: (4) Morbid obesity: (5) Anemia: (6) Anxiety: Admission and Anticipated Discharge Date Admission Date: June 01, 2021 Supervising Physician Co-Signing Physician Notes Resident Physician Supervision Note: I independently interviewed and examined the patient and verified the olmos hi story and physical, reviewed labs and image studies and agree with resident Dr. Mayen findings and care plan. Subjective No new concerns today. Requested change back from from DM2 to regular diet. She has been participating w/ therapy. Last BM 3 days ago, and possibly last night. Denies SOB. States her perioral skin peeling is from her hx of Rosacea. Review of Systems Review of Systems: All systems reviewed & are unremarkable except as noted in HPI & below Physical Exam Physical Exam: General: Grossly A&O. NAD. Cooperative. Obese habitus. HEENT: Atraumatic, normocephalic. Pulm: CTAB. No respiratory distress. Cardiac: RRR, -mrg. No edema of L ankle. Abdominal: Nontender, nondistended, soft. Msk: Wiggling toes of bilateral feet and moving knee. RLE wrapped and has external fixator. Neuro: Sensation of toes intact. Integ: + venous stasis changes of L enriquez, chronic, w/ peeling. Mild skin peeling perioral region. Results & Data Results & Data ([facility]) Vital Signs (Past 12 Hours) Vital Signs vitals stable Temp Pulse Resp BP Pulse Ox 06/21/21 22:17 36.5 C 64 20 113/69 96 Resident Activity Tracking Resident Involvement: Resident Care Provided Care Provided: Adult Hospital Medicine (1) Ankle dislocation Encounter type: initial encounter Laterality: right Qualified Code(s): S93.04XA - Dislocation of right ankle joint, initial encounter
[2021-06-22] MEDS: DOCUSATE SODIUM 100 MG CAP PO SCH ×2 (08:29→21:30)
[2021-06-22] MEDS: busPIRone 5 MG TAB PO SCH ×3 (08:29→21:31)
[2021-06-22] MEDS: CYANOCOBALAMIN 500 MCG TABLET (VITAMIN B-12) PO SCH (08:29)
[2021-06-22] MEDS: MULTIVITAMIN TAB PO SCH (08:30)
[2021-06-22] MEDS: ERGOCALCIFEROL 50,000 UNITS 1250 MCG CAP PO SCH (08:30)
[2021-06-22] MEDS: PROPRANOLOL HCL 60 MG LA CAP PO SCH (08:31)
[2021-06-22] MEDS: PROPRANOLOL HCL LA 80 MG CAPCR PO SCH (08:35)
[2021-06-22] MEDS: MICONAZOLE NITRATE POWDER 43 GM EXT SCH ×2 (11:10→21:32)
[2021-06-22] MEDS: MAGNESIUM OXIDE 400 MG TAB PO SCH (13:23)
--- NOTE | 2021-06-22 17:32 | Orthopedic Progress Note ---
Date of Service June 22, 2021 Assessment & Plan (1) Type I or II open fracture dislocation of right ankle: Plan: 60 yo female stable ~3 wks s/p right ankle removal hardware, I&D, perc pinning lateral malleolus, application ex fix s/p recent open ankle fx/dislocation The patient's dressing was changed today at the wounds at the lateral aspect of the ankle and medial aspect of the ankle. The medial aspect of the ankle appears to be healing well. However, the lateral aspect of the ankle continues to have wound with an eschar over the wound dehiscence. There is no erythema. Overall, the wound appears improved since surgery 3 weeks ago. However, it has not healed well enough for any definitive surgery. I had a discussion with the patient about surgical options when we are able to do so. The most likely surgery will be to remove the external fixator and fuse the ankle joint or do a pantalar fusion with a retrocalcaneal nail. All surgical options will require the patient to be nonweightbearing for at least 6 weeks from that surgery. We will recheck the right ankle x-rays to evaluate the position of the ankle joint and the lateral malleolus. I will have Dr. Desai review the x-rays once they are performed. Admission and Anticipated Discharge Date Admission Date: June 01, 2021 Subjective States has been nonweightbearing on the right lower extremity. She is working with PT for transferring to be out of bed. States she would like to go home if she is unable to have surgery over the next couple of days to a week. She has had minimal pain within the right ankle. She has been using Tylenol as needed for pain. Physical Exam Constitutional: WD/WN, vitals as above cooperative; no acute distress (Frustrated that she is unable to have surgery soon.) Musculoskeletal: Ankle: + surgical incision (Right lateral ankle wound with eschar in place) and + limited ROM of ankle (Right ankle with external fixator in place); no skin erythema and no ecchymosis Neurologic: normal touch/pain/proprioception Psychiatric: A+Ox3, euthymic affect Speech: normal rate/rhythm/volume of speech Results & Data ([facility]) Vital Signs (Past 12 Hours) Vital Signs Temp Pulse Resp BP Pulse Ox 06/22/21 15:40 36.8 C 73 16 148/65 H 94 06/22/21 07:41 36.4 C L 66 16 122/59 L 93
--- NOTE | 2021-06-22 17:45 | XRay Report ---
XR ankle RT min 3V routine CLINICAL HISTORY: Right ankle lateral malleolus fracture TECHNIQUE: 3 views of the right ankle were obtained. Comparison: None available at the time of this dictation. FINDINGS: External fixation hardware is seen in the ankle. Alignment is markedly improved from prior exam. Ther e remains approximately 5 mm of clearance between the medial malleolus and the talus. Fracture of the distal malleolus is in near anatomic alignment. Bony mineralization is within normal limits. Soft ti ssue swelling is seen about the ankle. IMPRESSION: Status post external fixation with moderately improved appearance of the alignment of the fracture fr agments. ACT 112: Negative or not required by law. Electronically signed by: Nguyễn Solitario M.D. 06/22/2021 5:44 PM
[2021-06-22] MEDS: CITALOPRAM 40 MG TAB PO SCH (21:30)
[2021-06-22] MEDS: AMITRIPTYLINE HCL 50 MG TAB PO SCH (21:31)
[2021-06-22] MEDS: SENNA 8.6 MG TAB PO SCH (21:32)
[2021-06-22] MEDS: LORazepam 0.5 MG TAB PO PRN (21:36)
[2021-06-22] MEDS: RIVAROXABAN 20 MG TAB PO SCH (22:11)
[2021-06-23] MEDS: ACETAMINOPHEN 500 MG TAB PO SCH ×3 (05:58→21:24)
[2021-06-23] MEDS: DOCUSATE SODIUM 100 MG CAP PO SCH ×2 (08:10→20:29)
[2021-06-23] MEDS: busPIRone 5 MG TAB PO SCH ×3 (08:10→20:28)
[2021-06-23] MEDS: CYANOCOBALAMIN 500 MCG TABLET (VITAMIN B-12) PO SCH (08:10)
[2021-06-23] MEDS: MULTIVITAMIN TAB PO SCH (08:11)
[2021-06-23] MEDS: MICONAZOLE NITRATE POWDER 43 GM EXT SCH ×2 (08:11→20:30)
[2021-06-23] MEDS: PROPRANOLOL HCL 60 MG LA CAP PO SCH (08:11)
[2021-06-23] MEDS: PROPRANOLOL HCL LA 80 MG CAPCR PO SCH (08:11)
--- NOTE | 2021-06-23 08:33 | Hospitalist Progress Note ---
Date of Service June 23, 2021 Assessment & Plan (1) Ankle dislocation: Plan: 60yo female with DM2 and history of PE presents after dislocating her recently- repaired right-sided Maisonneuve ankle fracture. Stable. Ankle dislocation s/p open reduction & external fixation (06/03) by ortho with irrigation & debridement of ankle wound Pain controlled w/ tylenol PT/OT consulted and recommends for inpatient rehab vs SNF, CM assisting with placement 06/15: ortho reevaluated patient: lateral and medial RLE wounds concerning and impeding surgical intervention; 06/22 re-evaluated: no intervention while inpatient. Outpatient f/u in 7-10 days. History of pulmonary embolism Continue home xarelto General anxiety disorder Continue home citalopram, and hydroxyzine, and lorazepam Continue buspar at 10mg tid (increased from home regimen of 10mg bid) Migraine Continue amitriptyline, propranolol for prophylaxis Anemia Chronic, stable, normocytic. Follow CBC. Type 2 diabetes mellitus Diet-controlled, A1c 5.6 06/07/21 FEN: regular diet Code status: full code Anticoag: home xarelto 20 qhs Dispo: med/surg. Awaiting placement. (2) Hx pulmonary embolism: (3) Diabetic peripheral neuropathy associated with type 2 diabetes mellitus: (4) Morbid obesity: (5) Anemia: (6) Anxiety: Admission and Anticipated Discharge Date Admission Date: June 01, 2021 Supervising Physician Co-Signing Physician Notes Resident Physician Supervision Note: I independently interviewed and examined the patient and verified the olmos history and physical, reviewed labs and image studies and agree with resident Dr. Mayen findings and care plan. Subjective Denies any complaints. Mentioned ortho's visit yesterday. Prefers to go home w/ home PT and states is able to take care of her at home. Lives in single story house. Had BM yesterday. Tolerating meals. PM update: Discussed w/ watch case polisher. Patient would benefit from facility placement as she is a multi person assist. Review of Systems Review of Systems: All systems reviewed & are unremarkable except as noted in HPI & below Physical Exam Physical Exam: General: Grossly A&O. NAD. Cooperative. Obese habitus. HEENT: Atraumatic, normocephalic. Pulm: CTAB anteriorly and laterally. No respiratory distress. Cardiac: RRR, -mrg. No edema of L ankle. Abdominal: Nontender, nondistended, soft. Msk: Wiggling toes of bilateral feet and moving knee. RLE wrapped and has external fixator. Neuro: Sensation of toes intact. Integ: + venous stasis changes of L enriquez, chronic, w/ peeling. Results & Data Results & Data ([facility]) Vital Signs (Past 12 Hours) Vital Signs vitals stable. 93-95 on RA Temp Pulse Pulse Resp BP Pulse Ox 06/23/21 08:08 36.5 C 65 18 126/58 L 93 06/22/21 22:39 36.5 C 68 20 120/71 95 Laboratory Results no new labs Resident Activity Tracking Resident Involvement: Resident Care Provided Care Provided: Adult Hospital Medicine (1) Ankle dislocation Encounter type: initial encounter Laterality: right Qualified Code(s): S93.04XA - Dislocation of right ankle joint, initial encounter
[2021-06-23] MEDS: MAGNESIUM OXIDE 400 MG TAB PO SCH (13:05)
[2021-06-23] MEDS: AMITRIPTYLINE HCL 50 MG TAB PO SCH (20:26)
[2021-06-23] MEDS: CITALOPRAM 40 MG TAB PO SCH (20:28)
[2021-06-23] MEDS: RIVAROXABAN 20 MG TAB PO SCH (20:30)
[2021-06-23] MEDS: SENNA 8.6 MG TAB PO SCH (20:31)
[2021-06-24] MEDS: ACETAMINOPHEN 500 MG TAB PO SCH ×3 (05:15→21:06)
[2021-06-24] MEDS: PROPRANOLOL HCL LA 80 MG CAPCR PO SCH (07:37)
[2021-06-24] MEDS: CYANOCOBALAMIN 500 MCG TABLET (VITAMIN B-12) PO SCH (07:37)
[2021-06-24] MEDS: MULTIVITAMIN TAB PO SCH (07:37)
[2021-06-24] MEDS: PROPRANOLOL HCL 60 MG LA CAP PO SCH (07:37)
[2021-06-24] MEDS: DOCUSATE SODIUM 100 MG CAP PO SCH ×2 (07:38→19:53)
[2021-06-24] MEDS: MICONAZOLE NITRATE POWDER 43 GM EXT SCH ×2 (07:38→19:54)
[2021-06-24] MEDS: busPIRone 5 MG TAB PO SCH ×3 (07:38→19:53)
--- NOTE | 2021-06-24 08:13 | Hospitalist Progress Note ---
Date of Service June 24, 2021 Assessment & Plan (1) Ankle dislocation: Plan: 60yo female with DM2 and history of PE presents after dislocating her recently- repaired right-sided Maisonneuve ankle fracture. Stable. Ankle dislocation s/p open reduction & external fixation (06/03) by ortho with irrigation & debridement of ankle wound Pain controlled w/ tylenol PT/OT consulted and recommends for inpatient rehab vs SNF, CM assisting with placement 06/15: ortho reevaluated patient: lateral and medial RLE wounds concerning and impeding surgical intervention; 06/22 re-evaluated: no intervention while inpatient. Outpatient f/u in 7-10 days. History of pulmonary embolism Continue home xarelto General anxiety disorder Continue home citalopram, and hydroxyzine, and lorazepam Continue buspar at 10mg tid (increased from home regimen of 10mg bid) Migraine Continue amitriptyline, propranolol for prophylaxis Anemia Chronic, stable, normocytic. Follow CBC. Type 2 diabetes mellitus Diet-controlled, A1c 5.6 06/07/21 FEN: regular diet Code status: full code Anticoag: home xarelto 20 qhs Dispo: med/surg. Dispo plan is home, but waiting on equipment such as bariatric bed. (2) Hx pulmonary embolism: (3) Diabetic peripheral neuropathy associated with type 2 diabetes mellitus: (4) Morbid obesity: (5) Anemia: (6) Anxiety: Admission and Anticipated Discharge Date Admission Date: June 01, 2021 Supervising Physician Co-Signing Physician Notes Resident Physician Supervision Note: I independently interviewed and examined the patient and verified the olmos history and physical, reviewed labs and image studies and agree with resident Dr. Mayen findings and care plan. Subjective Denies any new complaints today. She has no pain in her foot. She was upset about dispo plan for facility placement. Review of Systems Review of Systems: All systems reviewed & are unremarkable except as noted in HPI & below Physical Exam Physical Exam: General: Grossly A&O. NAD. Cooperative. Obese habitus. HEENT: Atraumatic, normocephalic. Pulm: CTAB anteriorly and laterally. No respiratory distress. Cardiac: RRR, -mrg. No edema of L ankle. Abdominal: Nontender, nondistended, soft. Msk: Moving knees and BLE. RLE wrapped and has external fixator. Moving toes. Neuro: Sensation of toes intact. Integ: + venous stasis changes of L enriquez, chronic, w/ peeling. Results & Data Results & Data ([facility]) Vital Signs (Past 12 Hours) Vital Signs vitals reviewed Temp Pulse Resp BP BP Pulse Ox 06/24/21 07:15 36.5 C 69 18 151/73 H 93 06/23/21 23:06 36.7 C 81 16 135/69 95 Resident Activity Tracking Resident Involvement: Resident Care Provided Care Provided: Adult Hospital Medicine (1) Ankle dislocation Encounter type: initial encounter Laterality: right Qualified Code(s): S93.04XA - Dislocation of right ankle joint, initial encounter
[2021-06-24] MEDS: MAGNESIUM OXIDE 400 MG TAB PO SCH (13:19)
[2021-06-24] MEDS: SENNA 8.6 MG TAB PO SCH (19:53)
[2021-06-24] MEDS: CITALOPRAM 40 MG TAB PO SCH (19:53)
[2021-06-24] MEDS: AMITRIPTYLINE HCL 50 MG TAB PO SCH (19:53)
[2021-06-24] MEDS: RIVAROXABAN 20 MG TAB PO SCH (19:53)
[2021-06-25] MEDS: ACETAMINOPHEN 500 MG TAB PO SCH ×3 (05:11→21:07)
[2021-06-25] MEDS: CYANOCOBALAMIN 500 MCG TABLET (VITAMIN B-12) PO SCH (08:59)
[2021-06-25] MEDS: MULTIVITAMIN TAB PO SCH (08:59)
[2021-06-25] MEDS: PROPRANOLOL HCL LA 80 MG CAPCR PO SCH (08:59)
[2021-06-25] MEDS: busPIRone 5 MG TAB PO SCH ×3 (09:00→19:37)
[2021-06-25] MEDS: PROPRANOLOL HCL 60 MG LA CAP PO SCH (09:00)
[2021-06-25] MEDS: MICONAZOLE NITRATE POWDER 43 GM EXT SCH ×2 (09:00→19:38)
[2021-06-25] MEDS: DOCUSATE SODIUM 100 MG CAP PO SCH ×2 (09:00→19:37)
--- NOTE | 2021-06-25 10:19 | Hospitalist Progress Note ---
Date of Service June 25, 2021 Assessment & Plan (1) Ankle dislocation: Plan: 60yo female with DM2 and history of PE presents after dislocating her recently- repaired right-sided Maisonneuve ankle fracture. Stable. Dispo Planning Goal is for patient to be discharged home; however, waiting on equipment. Hopeful for discharge on Sunday06/27/21. Need for DME including bariatric hospital bed, handrails, bed wedge, bed carter, sanitation wipes, and bed pad are needed in order for patient to be successful at home. Specifically, patient is to be nonweightbearing on RLE x6 weeks in order for surgical fixation to occur. She will be primarily confined to the bed, necessitating the above mentioned DME. Patient will also require frequent repositioning to prevent wounds and improve current wound care/management. Incontinence care will also prevent further wound development. Ankle dislocation s/p open reduction & external fixation (06/03) by ortho with irrigation & debridement of ankle wound Pain controlled w/ tylenol PT/OT consulted and recommends for inpatient rehab vs SNF, CM assisting with placement 06/15: ortho reevaluated patient: lateral and medial RLE wounds concerning and impeding surgical intervention; 06/22 re-evaluated: no intervention while inpatient. Outpatient f/u in 7-10 days. History of pulmonary embolism Continue home Xarelto General anxiety disorder Continue home citalopram, and hydroxyzine, and lorazepam Continue Buspar at 10mg tid (increased from home regimen of 10mg bid) Migraine Continue amitriptyline, propranolol for prophylaxis Anemia Chronic, stable, normocytic. Follow CBC. Type 2 diabetes mellitus Diet-controlled, A1c 5.6 06/07/21 FEN: regular diet Code status: full code Anticoag: home xarelto 20 qhs Dispo: med/surg. Dispo plan is home, but waiting on equipment (2) Hx pulmonary embolism: (3) Diabetic peripheral neuropathy associated with type 2 diabetes mellitus: (4) Morbid obesity: (5) Anemia: (6) Anxiety: Admission and Anticipated Discharge Date Admission Date: June 01, 2021 Supervising Physician Co-Signing Physician Notes Resident Physician Supervision Note: I independently interviewed and examined the patient and verified the olmos history and physical, reviewed labs and image studies and agree with resident Dr. Colby findings and care plan. Subjective Patient seen and evaluated at bedside this morning. She has no specific complaints or concerns. States that she is overall doing well. She is pleased with her progress with PT thus far. Patient's ankle pain is well controlled with Tylenol. Tolerating diet well w/o abdominal pain, nausea, or vomiting. Last BM was yesterday. Review of Systems Review of Systems: All systems reviewed & are unremarkable except as noted in HPI & below Physical Exam Physical Exam: GENERAL: No acute distress. Obese female. Well developed and well nourished. Vital signs reviewed as above. EYES: EOMI. Anicteric sclerae. HENT: Atraumatic, normocephalic. Moist mucous membranes. RESPIRATORY: No respiratory distress. Normal respiratory effort. Good air movement bilaterally. Clear to auscultation bilaterally. No wheezing, rales, or rhonchi. CARDIOVASCULAR: Regular rate and rhythm. No murmurs. ABDOMEN: Soft, non-tender and non-distended. Normal bowel sounds. SKIN: Warm, dry. MSK: RLE wrapped and with external fixator in place. NEUROLOGIC: A/O x3. No focal neurological deficits. PSYCHIATRIC: Cooperative. Appropriate mood and affect. Results & Data Results & Data ([facility]) Vital Signs (Past 12 Hours) Vital Signs Temp Pulse Resp BP BP Pulse Ox 06/25/21 07:39 36.6 C 66 18 118/68 93 06/24/21 23:19 36.4 C L 64 18 115/62 93 Resident Activity Tracking Resident Involvement: Resident Care Provided Care Provided: Adult Hospital Medicine (1) Ankle dislocation Encounter type: initial encounter Laterality: right Qualified Code(s): S93.04XA - Dislocation of right ankle joint, initial encounter
[2021-06-25] MEDS: MAGNESIUM OXIDE 400 MG TAB PO SCH (13:45)
[2021-06-25] MEDS: SENNA 8.6 MG TAB PO SCH (19:37)
[2021-06-25] MEDS: RIVAROXABAN 20 MG TAB PO SCH (19:37)
[2021-06-25] MEDS: AMITRIPTYLINE HCL 50 MG TAB PO SCH (19:37)
[2021-06-25] MEDS: CITALOPRAM 40 MG TAB PO SCH (19:38)
[2021-06-26] MEDS: ACETAMINOPHEN 500 MG TAB PO SCH ×3 (05:49→20:24)
[2021-06-26] MEDS: DOCUSATE SODIUM 100 MG CAP PO SCH ×2 (08:02→20:24)
[2021-06-26] MEDS: MULTIVITAMIN TAB PO SCH (08:02)
[2021-06-26] MEDS: busPIRone 5 MG TAB PO SCH ×3 (08:02→20:24)
[2021-06-26] MEDS: PROPRANOLOL HCL 60 MG LA CAP PO SCH (08:03)
[2021-06-26] MEDS: CYANOCOBALAMIN 500 MCG TABLET (VITAMIN B-12) PO SCH (08:03)
[2021-06-26] MEDS: PROPRANOLOL HCL LA 80 MG CAPCR PO SCH (08:03)
[2021-06-26] MEDS: MICONAZOLE NITRATE POWDER 43 GM EXT SCH ×2 (08:03→20:24)
[2021-06-26] MEDS: MAGNESIUM OXIDE 400 MG TAB PO SCH (13:14)
--- NOTE | 2021-06-26 14:15 | Hospitalist Progress Note ---
Date of Service June 26, 2021 Assessment & Plan (1) Ankle dislocation: Plan: 60yo female with DM2 and history of PE presents after dislocating her recently- repaired right-sided Maisonneuve ankle fracture. Stable. Dispo Planning Goal is for patient to be discharged home; however, waiting on equipment. Hopeful for discharge on Sunday06/27/21. Need for DME including bariatric hospital bed, handrails, bed wedge, bed carter, sanitation wipes, and bed pad are needed in order for patient to be successful at home. Specifically, patient is to be nonweightbearing on RLE x6 weeks in order for surgical fixation to occur. She will be primarily confined to the bed, necessitating the above mentioned DME. Patient will also require frequent repositioning to prevent wounds and improve current wound care/management. Incontinence care will also prevent further wound development. Patient also w/ needs for bedside commode and wheelchair w/ removable sides. Ordered 06/26/21. Ankle dislocation s/p open reduction & external fixation (06/03) by ortho with irrigation & debridement of ankle wound Pain continues to be well controlled w/ tylenol prn; using mostly after PT Continue PT/OT; initially recommended placement at SNF vs. inpatient rehab but now w/ plans for discharge home w/ home health services 06/15: ortho reevaluated patient: lateral and medial RLE wounds concerning and impeding surgical intervention; 06/22 re-evaluated: no intervention while inpatient. Outpatient f/u in 7-10 days. History of pulmonary embolism Continue home Xarelto General anxiety disorder Continue home citalopram, and hydroxyzine, and lorazepam Continue Buspar at 10mg tid (increased from home regimen of 10mg bid) Migraine Continue amitriptyline, propranolol for prophylaxis Anemia Chronic, stable, normocytic. Follow CBC. Type 2 diabetes mellitus Diet-controlled, A1c 5.6 06/07/21 FEN: regular diet Code status: full code Anticoag: home xarelto 20 qhs Dispo: med/surg. Dispo plan is home, but waiting on equipment (2) Hx pulmonary embolism: (3) Diabetic peripheral neuropathy associated with type 2 diabetes mellitus: (4) Morbid obesity: (5) Anemia: (6) Anxiety: Admission and Anticipated Discharge Date Admission Date: June 01, 2021 Supervising Physician Co-Signing Physician Notes Resident Physician Supervision Note: I independently interviewed and examined the patient and verified the olmos history and physical, reviewed labs and image studies and agree with resident Dr. Colby findings and care plan. Subjective Patient seen and evaluated at bedside this morning. She has no specific complaints or concerns. States that she is overall doing well. Is pleased with continued progress with PT and is looking forward to getting home. Patient's ankle pain is well controlled with Tylenol. Tolerating diet well w/o abdominal pain, nausea, or vomiting. Continues to have regular BMs. Review of Systems Review of Systems: See HPI Physical Exam Physical Exam: GENERAL: No acute distress. Obese female. Well developed and well nourished. Vital signs reviewed as above. EYES: EOMI. Anicteric sclerae. HENT: Atraumatic, normocephalic. Moist mucous membranes. RESPIRATORY: No respiratory distress. Normal respiratory effort. Good air movement bilaterally. Clear to auscultation bilaterally. No wheezing, rales, or rhonchi. CARDIOVASCULAR: Regular rate and rhythm. No murmurs. ABDOMEN: Soft, non-tender and non-distended. Normal bowel sounds. SKIN: Warm, dry. Chronic venous stasis changes w/ dry/peeling skin to left enriquez. No discharge. MSK: RLE wrapped and with external fixator in place. NEUROLOGIC: A/O x3. No focal neurological deficits. PSYCHIATRIC: Cooperative. Appropriate mood and affect. Results & Data Results & Data ([facility]) Vital Signs (Past 12 Hours) Vital Signs Temp Pulse Resp BP Pulse Ox 06/26/21 07:55 36.5 C 67 16 131/72 94 Resident Activity Tracking Resident Involvement: Resident Care Provided Care Provided: Adult [facility] (1) Ankle dislocation Encounter type: initial encounter Laterality: right Qualified Code(s): S93.04XA - Dislocation of right ankle joint, initial encounter
[2021-06-26] MEDS: CITALOPRAM 40 MG TAB PO SCH (20:24)
[2021-06-26] MEDS: RIVAROXABAN 20 MG TAB PO SCH (20:24)
[2021-06-26] MEDS: AMITRIPTYLINE HCL 50 MG TAB PO SCH (20:24)
[2021-06-26] MEDS: SENNA 8.6 MG TAB PO SCH (20:24)
[2021-06-27] MEDS: ACETAMINOPHEN 500 MG TAB PO SCH ×3 (05:38→21:44)
--- NOTE | 2021-06-27 06:46 | Hospitalist Progress Note ---
Date of Service June 27, 2021 Assessment & Plan (1) Ankle dislocation: Plan: 60 y/o female with DM2 and history of PE who presents after dislocating her recently-repaired right-sided Maisonneuve ankle fracture. Stable. Dispo Planning Hopeful for discharge home on 06/28/21 pending delivery of home equipment (e.g.. bariatric bed) Need for DME including bariatric hospital bed, handrails, bed wedge, bed carter, sanitation wipes, and bed pad are needed in order for patient to be successful at home. Specifically, patient is to be nonweightbearing on RLE x6 weeks in order for surgical fixation to occur. She will be primarily confined to the bed, necessitating the above mentioned DME. Patient will also require frequent repositioning to prevent wounds and improve current wound care/management. Incontinence care will also prevent further wound development. Patient is not able to use a walker or cane safely. Patient also w/ needs for bedside commode and wheelchair w/ removable sides. Ankle dislocation s/p open reduction & external fixation (06/03) by ortho with irrigation & debridement of ankle wound Pain continues to be well controlled w/ tylenol prn; using mostly after PT Continue PT/OT; initially recommended placement at SNF vs. inpatient rehab but now w/ plans for discharge home w/ home health services 06/15: ortho reevaluated patient: lateral and medial RLE wounds concerning and impeding surgical intervention; 06/22 re-evaluated: no intervention while inpatient. Outpatient f/u in 7-10 days. History of pulmonary embolism Continue home Xarelto General anxiety disorder Continue home citalopram, and hydroxyzine, and lorazepam Continue Buspar at 10mg tid (increased from home regimen of 10mg bid) Migraine Continue amitriptyline, propranolol for prophylaxis Anemia Chronic, stable, normocytic. Follow CBC. Type 2 diabetes mellitus Diet-controlled, A1c 5.6 06/07/21 FEN: regular diet Code status: full code Anticoag: home xarelto 20 qhs Dispo: med/surg (2) Hx pulmonary embolism: (3) Diabetic peripheral neuropathy associated with type 2 diabetes mellitus: (4) Morbid obesity: (5) Anemia: (6) Anxiety: Admission and Anticipated Discharge Date Admission Date: June 01, 2021 Supervising Physician Co-Signing Physician Notes I personally examined the patient and verified all olmos points of history and exam, discussed case, and agree with decision making with Dr Mayen Plan will be for homeshe believes she will have all the necessary equipment tomorrow. Vitals noted, in general she is awake and alert pleasant no distress. HEENT normocephalic atraumatic mucous membranes are moist. Breathing unlabored no accessory muscle use good effort. Skin shows no rashes no pallor or icterus. Neuro without focal deficits. Open fracture of anklenow postop, overall management per orthopedics - expectant for now, for home once equipment gets set up. Morbid obesity with BMI of 68.2 definitely plays a role. xarelto. type 1 or 2 open fracture per orthopedic assessment.d/w ortho - ongoing local care for now. Ongoing therapy. otherwise as above Subjective Patient states she is doing well. She states she was told equipment arriving at home tomorrow. No foot pain or numbness/tingling. Last BM yesterday. States therapy going well. Review of Systems Review of Systems: All systems reviewed & are unremarkable except as noted in HPI & below Physical Exam Physical Exam: General: Grossly A&O. NAD. Cooperative. HEENT: Atraumatic, normocephalic. EOMI Pulm: CTAB anteriorly. -wheezes, -rales, -rhonchi. No respiratory distress. Cardiac: RRR, -mrg. Abdominal: Nontender, nondistended, soft. Integ: SKin flaking and chronic venous stasis changes LLE. Msk: RLE in external fixator and wrapped. Wiggling toes Neuro: Sensation of BLE intact Results & Data Results & Data ([facility]) Vital Signs (Past 12 Hours) Vital Signs vitals reviewed, appropriate Temp Pulse Resp BP Pulse Ox 06/27/21 00:00 36.6 C 63 16 113/62 95 Laboratory Results No new labs Resident Activity Tracking Resident Involvement: Resident Care Provided Care Provided: Adult Hospital Medicine (1) Ankle dislocation Encounter type: initial encounter Laterality: right Qualified Code(s): S93.04XA - Dislocation of right ankle joint, initial encounter
[2021-06-27] MEDS: MULTIVITAMIN TAB PO SCH (09:25)
[2021-06-27] MEDS: MICONAZOLE NITRATE POWDER 43 GM EXT SCH ×2 (09:25→19:52)
[2021-06-27] MEDS: CYANOCOBALAMIN 500 MCG TABLET (VITAMIN B-12) PO SCH (09:25)
[2021-06-27] MEDS: PROPRANOLOL HCL LA 80 MG CAPCR PO SCH (09:26)
[2021-06-27] MEDS: DOCUSATE SODIUM 100 MG CAP PO SCH ×2 (09:26→19:51)
[2021-06-27] MEDS: busPIRone 5 MG TAB PO SCH ×3 (09:26→19:51)
[2021-06-27] MEDS: PROPRANOLOL HCL 60 MG LA CAP PO SCH (09:27)
[2021-06-27] MEDS: LORazepam 0.5 MG TAB PO PRN ×2 (11:56→21:44)
[2021-06-27] MEDS: MAGNESIUM OXIDE 400 MG TAB PO SCH (11:57)
--- NOTE | 2021-06-27 18:43 | Billing Data ---
Date of Service June 27, 2021 Coding Level of Care Code 58084 Subseq Hosp Care Lvl 1
[2021-06-27] MEDS: SENNA 8.6 MG TAB PO SCH (19:51)
[2021-06-27] MEDS: RIVAROXABAN 20 MG TAB PO SCH (19:51)
[2021-06-27] MEDS: CITALOPRAM 40 MG TAB PO SCH (19:52)
[2021-06-27] MEDS: AMITRIPTYLINE HCL 50 MG TAB PO SCH (19:52)
[2021-06-28] MEDS: ACETAMINOPHEN 500 MG TAB PO SCH ×2 (06:07→13:13)
--- NOTE | 2021-06-28 07:04 | Discharge Summary ---
Date of Service June 28, 2021 Principal Diagnosis complicated ankle fracture Discharge Exam Denies subjective complaints. Patient feels ready for home. BMs regular. Tolerating diet. SHe had question about discharge med rec and whether she would obtain an xray today. General: Grossly A&O. NAD. Cooperative. HEENT: Atraumatic, normocephalic. EOMI Pulm: CTAB anteriorly and posteriorly. -wheezes, -rales, -rhonchi. No respiratory distress. Cardiac: RRR, -mrg. Abdominal: Nontender, nondistended, soft. Msk: RLE in external fixator and wrapped. Wiggling toes Neuro: Sensation of BLE intact Discharge Data Allergies Allergy/AdvReac Type Severity Reaction Status Date / Time iron AdvReac Unknown Does not Verified 06/01/21 20:47 tolerate oral (tolerates infusion) Consultations 06/01/21 20:57 ED Decision to Admit Stat 06/01/21 22:07 Consult Orthopedic Surgery Routine Procedures Performed Operation Date: 06/03/21 12:05 Actual Procedures s Irrigation and debridement of right lateral ankle wound dehiscence including skin, subcutaneous tissue, fascia, periosteum and bone.(Right) - Joel Desai DO p Open reduction and external fixation of right ankle fracture dislocation.(Right) - Joel Desai DO s Open reduction and percutaneous pinning of the lateral malleolus.(Right) - Joel Desai DO p Removal of retained hardware, medial and lateral ankle.(Right) - Joel Desai DO Ordered Studies 06/03/21 12:05 FL ankle RT 2V Routine 06/03/21 13:20 US - OR guided needle placemen Routine Hospital Course (1) Ankle dislocation: 60 y/o female with DM2 and history of PE who presents after dislocating her recently-repaired right-sided [place] ankle fracture. Stable. Dispo Planning Hopeful for discharge home on 06/28/21 pending delivery of home equipment (e.g.. bariatric bed) Need for DME including bariatric hospital bed, handrails, bed wedge, bed carter, sanitation wipes, and bed pad are needed in order for patient to be successful at home. Specifically, patient is to be nonweightbearing on RLE x6 weeks in order for surgical fixation to occur. She will be primarily confined to the bed, necessitating the above mentioned DME. Patient will also require frequent repositioning to prevent wounds and improve current wound care/management. Incontinence care will also prevent further wound development. Patient is not able to use a walker or cane safely. Patient also w/ needs for bedside commode and wheelchair w/ removable sides. Ankle dislocation s/p open reduction & external fixation (06/03) by ortho with irrigation & debridement of ankle wound Pain continues to be well controlled w/ tylenol prn; using mostly after PT Continue PT/OT; initially recommended placement at SNF vs. inpatient rehab but now w/ plans for discharge home w/ home health services 06/15: ortho reevaluated patient: lateral and medial RLE wounds concerning and impeding surgical intervention; 06/22 re-evaluated: no intervention while inpatient. Outpatient f/u in 7-10 days. History of pulmonary embolism Continue home Xarelto General anxiety disorder Continue home citalopram, and hydroxyzine, and lorazepam Continue Buspar at 10mg tid (increased from home regimen of 10mg bid) Migraine Continue amitriptyline, propranolol for prophylaxis Anemia Chronic, stable, normocytic. Follow CBC. Type 2 diabetes mellitus Diet-controlled, A1c 5.6 06/07/21 FEN: regular diet Code status: full code Anticoag: home xarelto 20 qhs Dispo: med/surg (2) Hx pulmonary embolism: (3) Diabetic peripheral neuropathy associated with type 2 diabetes mellitus: (4) Morbid obesity: (5) Anemia: (6) Anxiety: Total Time Total Time Spent Total Time Spent (In Minutes): <30 Discharge Plan Discharge Items Patient Disposition: Home - Home Health Services Reason For Visit: ANKLE FRACTURE Discharge Diagnosis: right ankle fracture Activity: Per Instructions section Non-emergency contact: Primary Care Provider and Surgeon Call non-emergency contact if: you have any medication questions, your pain is not controlled, your pain is worsening and your temperature is above 101 Follow-up/Referrals: Bradley Muse III, CRNP [Primary Care Provider] - 07/11/21 4:00 pm (hospital discharge f/u within 1 week TELEHEALTH VISIT WITH PCP) Joel Desai DO [Surgeon] - 06/16/21 2:00 pm (f/u in 1-2 wks) Diet: Regular Addtl Attending Provider Instructions: Dick Ms. Somers, You were admitted to [facility] from 06/01/21 to 06/28/21 for a right ankle fracture / reinjury. On 06/03/21, you had an external fixator placed. There is follow up surgery recommended after your foot wound heals sufficiency. Please make an appointment to see Dr. Desai in the office in approximately 1-2 weeks after leaving the hospital, see details below. Please follow up with your PCP within 1 week. You will have home health/therapy services set up. Medication changes Increased Buspar from twice a day to 3 times a day Removed oxycodone from home meds list Removed methacarbamol from home meds list; this muscle relaxant can cause drowsiness and increased risk of falls. You did not need while in the hospital Bowel regimen: over the counter such as Miralax only as needed Tylenol: take on an as needed basis and don't exceed 3000mg in one day. Routine return precautions If you develop any new or worsening symptoms including fever, chills, sweats, chest pain, chest pressure, difficulty breathing, uncontrolled nausea/vomiting, rash, wheezing, passing out or nearly passing out, bleeding, black/bloody bowel movements, or other new or concerning symptoms please call your primary care physician, or call 911 for re-evaluation in the emergency department if you are very concerned. Addtl Predatory Hunter Provider Instructions: ACTIVITY RECOMMENDATIONS: Limitations: No weight bearing to affected limb at all times. SPECIAL CARE INSTRUCTIONS: * Some drainage onto the dressing is normal and is no cause for alarm. * Some swelling is natural especially after walking. * When resting, keep your foot elevated above the level of your heart. * Call [facility] if you notice: -Increased drainage -Fever over 101 degrees F -Severe constant pain BANDAGE: * Leave bandage/cast in place unless otherwise directed. * Keep bandage/cast dry at all times. FOLLOW UP VISIT WITH DR. DESAI If appointment is not already scheduled: Please call [facility] after you get home today to schedule a follow-up appointment for [address] Desai at . Pending Studies at Discharge: No Stand-Alone Forms: My [facility] [address], Smoking Cessation Medications and DC Order Prescriptions: Continued cholecalciferol (vitamin D3) 1,250 mcg (50,000 unit) capsule 50,000 units PO WEEKLY Qty: 12 RF: 3 Nurtec ODT 75 mg tablet,disintegrating 75 mg PO DAILY PRN (Reason: migraine headache) Qty: 8 RF: 5 lorazepam 0.5 mg tablet 0.5 mg PO TID PRN (Reason: anxiety) 14 Days Qty: 42 RF: 0 hydroxyzine HCl 50 mg tablet 50 mg PO HS PRN (Reason: anxiety) Qty: 30 RF: 3 citalopram 40 mg tablet 40 mg PO QPM Qty: 90 RF: 1 multivitamin [Daily Multi-Vitamin] tablet 1 tab PO QAM RF: 0 magnesium 250 mg tablet 250 mg PO QAM RF: 0 cyanocobalamin (vitamin B-12) 1,000 mcg tablet 1,000 mcg PO QAM RF: 0 propranolol 160 mg capsule,extended release 24 hr 160 mg PO QAM RF: 0 propranolol 60 mg capsule,extended release 24 hr 60 mg PO QAM RF: 0 prochlorperazine maleate [Compazine] 10 mg tablet 10 mg PO Q6H PRN (Reason: nausea/ migraine headache) RF: 0 amitriptyline 25 mg tablet 50 mg PO HS RF: 0 Xarelto 20 mg tablet 20 mg PO HS RF: 0 Changed buspirone 10 mg tablet 10 mg PO TID Qty: 180 RF: 3 Discontinued methocarbamol 500 mg tablet 500 mg PO BID PRN (Reason: headache) Qty: 60 RF: 0 oxycodone-acetaminophen [Percocet] 5-325 mg tablet 1 tab PO Q6H PRN (Reason: pain) Qty: 20 RF: 0 Discharge Orders: Discharge Order (Routine); Ordered 06/28/21 Ordered By: Ric Wang/Other Patient Handouts: 5 Steps for Eating Healthier Admission Data Admit Date/Time: 06/01/21 22:03 Attending Provider: Sascha Gaxiola Admit Provider: Stefanie Starkey Primary Care Provider: Bradley Muse III Other Providers: [place] ; Kalin Colmenares ; Joel Desai ; [facility] ; [facility] ; Shy Baeza Other Interventions: Discharge Summary Assessment (RN) Last Done: 06/28/21 15:15 Supervising Physician Co-Signing Physician Notes I personally examined the patient and verified all olmos points of history and exam, discussed case, and agree with decision making with Dr Mayen set up for home. equipment ready. asks good questions about eating and weight loss - answer/offer guidance to the best of my ability Vitals noted, in general she is awake and alert pleasant no distress. HEENT normocephalic atraumatic mucous membranes are moist. Breathing unlabored no accessory muscle use good effort. Skin shows no rashes no pallor or icterus. Neuro without focal deficits. wound well dressed - unable to directly visualize well without disrupting dressing but external fixator in place and no gross abnormalities noted Open fracture of anklenow postop, overall management per orthopedics - expectant for now, ortho follow up next week. Morbid obesity with BMI of 68.2 definitely plays a role and we discussed "physics of weight loss" // meaning- value of a calorie // how to track/etc. xarelto. type 1 or 2 open fracture per orthopedic assessment. otherwise as above Resident Activity Tracking Resident Involvement: Resident Care Provided Care Provided: Adult Hospital Medicine
[2021-06-28] MEDS: MULTIVITAMIN TAB PO SCH (07:51)
[2021-06-28] MEDS: PROPRANOLOL HCL 60 MG LA CAP PO SCH (07:51)
[2021-06-28] MEDS: CYANOCOBALAMIN 500 MCG TABLET (VITAMIN B-12) PO SCH (07:52)
[2021-06-28] MEDS: PROPRANOLOL HCL LA 80 MG CAPCR PO SCH (07:52)
[2021-06-28] MEDS: busPIRone 5 MG TAB PO SCH ×2 (07:53→13:14)
[2021-06-28] MEDS: DOCUSATE SODIUM 100 MG CAP PO SCH (07:53)
[2021-06-28] MEDS: MICONAZOLE NITRATE POWDER 43 GM EXT SCH (07:55)
[2021-06-28] MEDS: MAGNESIUM OXIDE 400 MG TAB PO SCH (13:13)
--- NOTE | 2021-06-28 17:56 | Billing Data ---
Date of Service June 28, 2021 Coding Level of Care Code D/C DAY MANAGEMENT <30 MINS
== END 2021-06-28 17:20 | disposition home health service (06) | DRG 493 ==
LOC: ED 18:47 → SUATTDRO 22:03 → 3N 22:03

== ENCOUNTER 2021-09-16 08:13 | Inpatient (IN) ==
--- NOTE | 2021-08-26 16:19 | PAT Medication Instructions ---
Medication Instructions Date of Service August 26, 2021 Home Medications Medication Instructions Recorded cholecalciferol (vitamin D3) 1,250 50,000 units PO WEEKLY #12 cap 11/19/19 mcg (50,000 unit) capsule rimegepant 75 mg disintegrating 75 mg PO DAILY PRN #8 tab 02/28/21 tablet (Nurtec ODT) lorazepam 0.5 mg tablet 0.5 mg PO TID PRN 14 Days #42 tab 05/18/21 citalopram 40 mg tablet 40 mg PO QPM #90 tab 06/20/21 buspirone 10 mg tablet 10 mg PO TID #180 tab 06/29/21 Bed Side Commode #1 ea 07/06/21 miscellaneous medical supply 1 ea MISCELLANEOUS .COMPLEX #1 ea 07/06/21 hydroxyzine HCl 50 mg tablet 50 mg PO HS PRN #30 tab 08/24/21 magnesium 250 mg tablet 250 mg PO QAM multivitamin (Daily Multi-Vitamin) 1 tab PO QAM cyanocobalamin (vitamin B-12) 1,000 mcg tablet 1,000 mcg PO QAM cholecalciferol (vitamin D3) 1,250 mcg (50,000 unit) capsule 50,000 units PO WEEKLY rimegepant 75 mg disintegrating tablet (Nurtec ODT) 75 mg PO DAILY PRN amitriptyline 25 mg tablet 50 mg PO HS lorazepam 0.5 mg tablet 0.5 mg PO TID PRN 14 Days prochlorperazine maleate 10 mg tablet (Compazine) 10 mg PO Q6H PRN propranolol 160 mg capsule,24 hr,extended release 160 mg PO QAM propranolol 60 mg capsule,24 hr,extended release 60 mg PO QAM rivaroxaban 20 mg tablet (Xarelto) 20 mg PO HS citalopram 40 mg tablet 40 mg PO QPM buspirone 10 mg tablet 10 mg PO TID hydroxyzine HCl 50 mg tablet 50 mg PO HS PRN acetaminophen 500 mg tablet 1,000 mg PO Q6H PRN Continue as directed cholecalciferol (vitamin D3) 1,250 mcg (50,000 unit) capsule 50,000 units PO WEEKLY (just do not take morning of surgery) rimegepant 75 mg disintegrating tablet (Nurtec ODT) 75 mg PO DAILY PRN (if needed) ASK your prescriber and surgeon rivaroxaban 20 mg tablet (Xarelto) 20 mg PO HS DO NOT take the morning of surgery magnesium 250 mg tablet 250 mg PO QAM multivitamin (Daily Multi-Vitamin) 1 tab PO QAM cyanocobalamin (vitamin B-12) 1,000 mcg tablet 1,000 mcg PO QAM Take morning of surgery With a small sip of water, OTHERWISE NOTHING TO EAT OR DRINK AFTER MIDNIGHT: lorazepam 0.5 mg tablet 0.5 mg PO TID PRN (if needed) prochlorperazine maleate 10 mg tablet (Compazine) 10 mg PO Q6H PRN (if needed) propranolol 160 mg capsule,24 hr,extended release 160 mg PO QAM propranolol 60 mg capsule,24 hr,extended release 60 mg PO QAM buspirone 10 mg tablet 10 mg PO TID acetaminophen 500 mg tablet 1,000 mg PO Q6H PRN (okay to take up to 4 hours prior to surgery if needed) Take evening before surgery amitriptyline 25 mg tablet 50 mg PO HS lorazepam 0.5 mg tablet 0.5 mg PO TID PRN (if needed) prochlorperazine maleate 10 mg tablet (Compazine) 10 mg PO Q6H PRN (if needed) citalopram 40 mg tablet 40 mg PO QPM buspirone 10 mg tablet 10 mg PO TID hydroxyzine HCl 50 mg tablet 50 mg PO HS PRN (if needed) acetaminophen 500 mg tablet 1,000 mg PO Q6H PRN (if needed) Other Notes If you have any questions please call us at [phone] or [phone] or [phone] or [phone]
--- NOTE | 2021-08-31 11:51 | Anesthesiology Consultation ---
Date of Service August 31, 2021 Assessment & Plan (1) Encounter for pre-operative examination: - difficult intubation/history of glidescope: right ankle I&D, wound dehiscence 06/03/2021: Grade 1 view, Glidescope #3, ETT#7.0 + PNB. - transportation/surgery time: Pt states takes public transportation and would need a later morning start time. Blanca at Dr. Desai's office made aware. Pt aware to further coordinate with surgeon's office. - PCP office visit 07/11/2021 [place]: "...rather extensive recent medical issues surrounding and ankle fracture. Did have initial repair with subsequent Re break in the outpatient setting which required additional surgery and placement of external fixator. Lengthy hospitalization due to lack of inpatient rehabilitation facilities and special needs due to her morbid obesity. A total of 40 minutes was spent pre visit reviewing her extensive inpatient medical records from both inpatient stays as well as reviewing laboratory studies and diagnostic imaging. I did personally review imaging studies which were performed during her hospitalizations. Since discharge, she has been having very little pain. Her mood is well controlled on her current antidepressant an antianxiety regimen. She has been working on following a more healthy diet and is actively participating in direct physical therapy care as well as performing independent exercises..." - COVID screening: Per assessment on 08/31/2021: Travel screen negative, no known COVID-19 positive contacts or current COVID-19 related symptoms in past 2 weeks. Patient vaccinated. Surgeon arranging preop COVID testing, scheduled 09/14/2021 GEETA Crandall. Awaiting results. Chart Review Chart Review: Acceptable Risk for Surgery and Patient seen in Pre Admission Testing Teaching & Discussion Pre-Anesthesia Teaching/Discussion Notes: Instructed NPO after midnight before surgery, except medications with 15 cc of water. Medication instructions provided according to the PAT guidelines. History Surgery Operation Date: 09/16/21 10:30 Proposed Procedures p Right Ankle Removal External Fixator - Joel Desai DO s Pantalar Fusion with Retrocalcaneal Nail with Autograft Distal Fibula Autograft [place] - Joel Desai DO Height/Weight Height: 4 ft 11 in Weight: 147.418 kg Allergies Allergy/AdvReac Type Severity Reaction Status Date / Time iron AdvReac Unknown Does not Verified 08/26/21 09:01 tolerate oral (tolerates infusion) Medications Home Medications Medication Instructions Recorded Confirmed Last Taken magnesium 250 mg tablet 250 mg PO QAM 02/24/19 08/26/21 05/19/21 08:00 multivitamin (Daily Multi-Vitamin) 1 tab PO QAM 02/24/19 08/26/21 05/19/21 08:00 cyanocobalamin (vitamin B-12) 1,000 mcg PO QAM tab 03/19/19 08/26/21 05/19/21 08:00 1,000 mcg tablet cholecalciferol (vitamin D3) 1,250 50,000 units PO WEEKLY #12 cap 11/19/19 08/26/21 05/17/21 08:00 mcg (50,000 unit) capsule rimegepant 75 mg disintegrating 75 mg PO DAILY PRN #8 tab 02/28/21 08/26/21 Unknown tablet (Nurtec ODT) amitriptyline 25 mg tablet 50 mg PO HS 05/18/21 08/26/21 05/19/21 17:00 lorazepam 0.5 mg tablet 0.5 mg PO TID PRN 14 Days #42 tab 05/18/21 08/26/21 05/20/21 06:20 prochlorperazine maleate 10 mg 10 mg PO Q6H PRN 05/18/21 08/26/21 Unknown tablet (Compazine) propranolol 160 mg capsule,24 160 mg PO QAM 05/18/21 08/26/21 05/20/21 06:20 hr,extended release propranolol 60 mg capsule,24 60 mg PO QAM 05/18/21 08/26/21 05/20/21 06:20 hr,extended release rivaroxaban 20 mg tablet (Xarelto) 20 mg PO HS 05/18/21 08/26/21 05/16/21 18:00 citalopram 40 mg tablet 40 mg PO QPM #90 tab 06/20/21 08/26/21 Unknown buspirone 10 mg tablet 10 mg PO TID #180 tab 06/29/21 08/26/21 Unknown Bed Side Commode #1 ea 07/06/21 07/11/21 Unknown miscellaneous medical supply 1 ea MISCELLANEOUS .COMPLEX #1 ea 07/06/21 08/26/21 Unknown hydroxyzine HCl 50 mg tablet 50 mg PO HS PRN #30 tab 08/24/21 08/26/21 Unknown acetaminophen 500 mg tablet 1,000 mg PO Q6H PRN 08/26/21 08/26/21 Unknown Past Medical History Medical History (Updated 08/31/21 @ 11:58 by Keesha Thibodeaux PA-C) Anemia Ankle dislocation Anxiety Asthma controlled, stable per pt; last used rescue inhaler several yrs ago Benign essential hypertension controlled, stable per pt Depression Endometriosis hx Esophageal reflux Hereditary coagulation factor deficiency Hx of migraines Lupus anticoagulant disorder Mgr NOS wo ntrc w st mgr (10/15/11) Migraine Mitral valve disease PROLAPSE-NO CARDIOLOGY-NO DENTAL PREMED Morbid obesity with BMI of 60.0-69.9, adult Open fracture HX-RIGHT ANKLE Prothrombin gene mutation Pulmonary embolism HX-15 YRS AGO-DX'D LUPUS ANTICOAGULANT DISORDER-ON BLOOD THINNER SINCE Pulmonary nodules UNDER OBSERVATION Pure hypercholesterolemia Per records, pt denies Rosacea Sleep apnea Non-compliant with CPAP-"MASK MAKES ME GET MIGRAINES" Venous insufficiency Vertigo hx Vitamin B12 deficiency Patient denies h/o stroke, seizures, heart attack, heart failure, or DM. Exercise / Class Metabolic Activity IV < 2 Limit ADL/Bedbound (wheelchair bound) Past Family History Family History Sister Brain tumor Cancer Thyroid disease Father Heart disease Myocardial infarction Mother Thyroid disease Family/Other Hypertension Grandmother (Paternal) Diabetes Other Gallbladder disease Lung disease Seizure Denies family history of Ovarian cancer Prostate cancer Breast cancer Colorectal cancer Past Surgical History Surgical History H/O wrist surgery History of ankle surgery EXTERNAL FIXATOR PLACED 05/20/2021: Grade 4 view, MAC#3, ETT#7.5. No issues per anesthesia postop progress note. History of colonoscopy History of cystoscopy with stent History of esophagogastroduodenoscopy (EGD) History of kidney surgery History of lithotripsy History of open reduction and internal fixation (ORIF) procedure RIGHT ANKLE I&D, wound dehiscence 06/03/2021: Grade 1 view, Glidescope #3, ETT#7.0 + PNB. Hx of hysterectomy [place] and B[place] Past Anesthesia History Difficult Airway (grade 4 view per 05/20/2021 records; glidescope utilized 06/03/2021) and No Family Hx of Anesthesia Complications History of PONV No Hx of PONV and No Hx of Motion Sickness Social History Smoking Status: Never smoker Do You Dip or Chew Tobacco: No Hx Alcohol Use: No Hx Substance Use: No Review of Systems Patient denies chest pain, shortness of breath, dyspnea on exertion, fever, chills, cough, wheezing, or palpitations. Physical Exam Vital Signs Vitals BP 130/72 P 71 TEMP 98.2 SP02 94% on RA RESP 17 Physical Full cervical extension range of motion without pain Full TMJ range of motion TMD 3 finger breaths Mallampati Score 4 Dentition: intact, one front left upper side implant, several missing back teeth upper and lower bilat; denies chipped or loose teeth, caps/crowns or bridges Lungs: normal respiratory effort. Clear throughout to auscultation, no adventitious breath sounds Cardiac: regular rate and rhythm, no murmurs noted Carotid arteries: negative bruit bilat Lab Results Anesthesia Preop Results Results Anesthesia Widget: WBC 9.55 K/uL (4.8-10.8) 08/31/21 Hgb 13.8 g/dL (12.0-16.0) 08/31/21 Hct 43.2 % (37-47) 08/31/21 Plt 230 K/uL (130-400) 08/31/21 Na 137 mmol/L (136-145) 08/31/21 K 4.5 mmol/L (3.5-5.1) 08/31/21 Cl 98 mmol/L (98-107) 08/31/21 CO2 33 mmol/L (21-32) H 08/31/21 BUN 11 mg/dl (6-23) 08/31/21 Creat 0.66 mg/dl (0.6-1.2) 08/31/21 Glucose Level 119 mg/dl (70-99(Fasting)) H 08/31/21 Testing Electrocardiogram Date: 08/31/21 NSR, rate 73 bpm Incomplete RBBB Rightward axis Chest X-Ray Date: 05/17/21 FINDINGS: Limited exam secondary to patient body habitus. Cardiac silhouette is enlarged. Mild right hemidiaphragmatic elevation. No pneumothorax, pleural effusion, airspace consolidation or overt edema. Coarsening of the interstitium is likely secondary to patient body habitus. Degenerative changes of the shoulders and spine. IMPRESSION: Cardiomegaly without acute process.
--- NOTE | 2021-09-14 08:43 | History & Physical Report ---
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 All potential risks, benefits, complications, alternatives, and rehab have been discussed with the patient and she wishes to proceed. Plan for restart of Xarelto for post op DVT prophylaxis. Possible rehab vs. SNF upon d/c. (2) Osteoarthritis of ankle, right: (3) Dislocation of right ankle joint, sequela: (4) Morbid obesity with BMI of 60.0-69.9, adult: History of Present Illness Chief Complaint: right ankle pain Primary Care Provider: Bradley Muse III, SADE This is a patient who had a syndesmotic injury a few months ago. She underwent surgery with a tight rope type mechanism but sustained a fall and fractured the lateral malleolus below the plate. She had a fracture dislocation of the ankle with wounds at the medial and lateral ankle. She was taken to the OR for reduction and application of an external fixator. The wounds have now healed and she is being set up for surgical management. Allergies Allergy/AdvReac Type Severity Reaction Status Date / Time iron AdvReac Unknown Does not Verified 09/08/21 13:45 tolerate oral (tolerates infusion) Home Medications Medication Instructions Recorded Confirmed Type magnesium 250 mg tablet 250 mg PO QAM 02/24/19 09/08/21 History multivitamin (Daily Multi-Vitamin) 1 tab PO QAM 02/24/19 09/08/21 History cyanocobalamin (vitamin B-12) 1,000 mcg PO QAM tab 03/19/19 09/08/21 History 1,000 mcg tablet cholecalciferol (vitamin D3) 1,250 50,000 units PO WEEKLY #12 cap 11/19/19 09/08/21 Rx mcg (50,000 unit) capsule rimegepant 75 mg disintegrating 75 mg PO DAILY PRN #8 tab 02/28/21 09/08/21 Rx tablet (Nurtec ODT) amitriptyline 25 mg tablet 50 mg PO HS 05/18/21 09/08/21 History lorazepam 0.5 mg tablet 0.5 mg PO TID PRN 14 Days #42 tab 05/18/21 09/08/21 Rx prochlorperazine maleate 10 mg 10 mg PO Q6H PRN 05/18/21 09/08/21 History tablet (Compazine) propranolol 160 mg capsule,24 160 mg PO QAM 05/18/21 09/08/21 History hr,extended release propranolol 60 mg capsule,24 60 mg PO QAM 05/18/21 09/08/21 History hr,extended release rivaroxaban 20 mg tablet (Xarelto) 20 mg PO HS 05/18/21 09/08/21 History citalopram 40 mg tablet 40 mg PO QPM #90 tab 06/20/21 09/08/21 Rx buspirone 10 mg tablet 10 mg PO TID #180 tab 06/29/21 09/08/21 Rx Bed Side Commode #1 ea 07/06/21 09/08/21 Rx miscellaneous medical supply 1 ea MISCELLANEOUS .COMPLEX #1 ea 07/06/21 09/08/21 Rx hydroxyzine HCl 50 mg tablet 50 mg PO HS PRN #30 tab 08/24/21 09/08/21 Rx acetaminophen 500 mg tablet 1,000 mg PO Q6H PRN 08/26/21 09/08/21 History Past Med/Surg History Medical History Anemia Ankle dislocation Anxiety Asthma Benign essential hypertension Depression Endometriosis Esophageal reflux Hereditary coagulation factor deficiency Hx of migraines Lupus anticoagulant disorder Mgr NOS wo ntrc w st mgr (10/15/11) Migraine Mitral valve disease Morbid obesity with BMI of 60.0-69.9, adult Open fracture Prothrombin gene mutation Pulmonary embolism Pulmonary nodules Pure hypercholesterolemia Rosacea Sleep apnea Venous insufficiency Vertigo Vitamin B12 deficiency Surgical History H/O wrist surgery History of ankle surgery EXTERNAL FIXATOR PLACED 05/20/2021: Grade 4 view, MAC#3, ETT#7.5. No issues per anesthesia postop progress note. History of colonoscopy History of cystoscopy with stent History of esophagogastroduodenoscopy (EGD) History of kidney surgery History of lithotripsy History of open reduction and internal fixation (ORIF) procedure RIGHT ANKLE I&D, wound dehiscence 06/03/2021: Grade 1 view, Glidescope #3, ETT#7.0 + PNB. Hx of hysterectomy [place] and [place] Family History Sister Brain tumor Cancer Thyroid disease Father Heart disease Myocardial infarction Mother Thyroid disease Family/Other Hypertension Grandmother (Paternal) Diabetes Other Gallbladder disease Lung disease Seizure Denies family history of Ovarian cancer Prostate cancer Breast cancer Colorectal cancer Social History Smoking Status: Never smoker Second Hand Exposure: Yes ( A CHILD); Hx Alcohol Use: No Hx Substance Use: No Preferred Language: Azeri Communication Ability: Effective Visual Impairment: No Limitations Hearing Ability: Normal Hemp Fiber Taker Off Required: No Beliefs That Will Affect Care: None marital status: Current Living Situation: Spouse and Family Current Living Situation Comment: LIVES WITH SPOUSE, SON current occupational status: unemployed current occupation: HOMEMAKER How many Children do You have: 3 Feels Safe at Home: Yes Childhood Exposure to Second-Hand Smoke: Yes Dental Care, Regularly: Yes Physical Activity Frequency: 3-4 Times per Week Seatbelt Use: always Sunscreen Use: Yes Assistive Devices: Glasses and Wheelchair Physical Exam Constitutional: well developed, well nourished and + morbidly obese; no acute distress ENMT: external ear and nose normal, oropharynx normal Neck: trachea midline Respiratory: normal respiratory effort, lungs clear to auscultation Cardiovascular: Rate/Rhythm: regular rate and regular rhythm Gastrointestinal (Abdomen): normal bowel sounds, soft, nontender, no hepatosplenomegaly Musculoskeletal: Ankle: + surgical incision (healed medial and lateral wounds right ankle) and + limited ROM of ankle (right--external fixator in place.); no skin erythema and no ecchymosis Skin: no rashes, warm and dry Neurologic: normal touch/pain/proprioception Psychiatric: A+Ox3, euthymic affect Speech: normal rate/rhythm/volume of speech Lymphatic: no cervical or axillary lymphadenopathy
[~2021-09-16 08:13] MED LIST changes: -ALBUAER19 INH; -ASPI81TA21 PO; -ATV5 PO; +BUPIVACAINE 0.25% 30 ML VIAL ONE; -CLX20 PO; -CMDUNK PO; -CYAN10005 PO; -DICL1GEL28; -DOXY100C PO; +EPINEPHrine INJ 1 MG/ML AMP ONE; -FURO-85 PO; -GLC500 PO; +LACTATED RINGER'S 1,000 ML IV SCH; -METH-307 PO; -TOPI100T20 PO; -TRAM200T16 PO
--- NOTE | 2021-09-16 09:52 | History & Physical Bridge Note ---
Date of Service September 16, 2021 History & Physical Bridge Note I have examined the patient, reviewed the History & Physical and in the interval since the performance of the History & Physical I have noted the following changes of clinical significance: no changes noted
[2021-09-16] MEDS ORDERED: DEXAMETHASONE SOD INJ 4 MG/ML VIAL ONE (11:03)
[2021-09-16] MEDS ORDERED: fentaNYL citrate 100 MCG/2 ML VIAL ONE ×2 (11:03→14:17)
[2021-09-16] MEDS ORDERED: MIDAZOLAM HCL 1 MG/ML 2ML VIAL ONE ×2 (11:03)
[2021-09-16] MEDS ORDERED: PROPOFOL IV EMULSION 10 MG/ML 20 ML VIAL IV ONE (11:03)
[2021-09-16] MEDS ORDERED: SUCCINYLCHOLINE CHLORIDE 20 MG/ML 10 ML VIAL IV ONE (11:03)
[2021-09-16] MEDS ORDERED: ONDANSETRON INJ 2 MG/ML 2 ML VIAL ONE (11:03)
[2021-09-16] MEDS ORDERED: BUPIVACAINE 0.5 % 5 MG/1 ML MPF 30ML VIAL ONE (13:25)
[2021-09-16] MEDS ORDERED: PHENYLEPHRINE 100MCG/ML 5ML SYR ONE (13:52)
[2021-09-16] MEDS ORDERED: ePHEDrine sulfate 50 MG/ML SYR ONE (13:52)
--- NOTE | 2021-09-16 17:03 | Fluoroscopy Report ---
FL ankle RT min 3V RTN CLINICAL HISTORY: RT REMOVAL EX/ FIX ORIF TECHNIQUE: 2 views were obtained with the C-arm in the OR with the above procedure. Total fluoroscopy time was 127.2 seconds. Total skin dose was 3.29 mGy. Comparison: Comparison is made to right ankle radiographs 06/22/2021 FINDINGS/IMPRESSION: Intraoperative images were obtained of open reduction internal fixation of right ankle fractures. Please correlate with intraoperative fluoroscopy and operative report. ACT 112: Negative or not required by law. Electronically signed by: Nguyễn Solitario M.D. 09/16/2021 5:02 PM
--- NOTE | 2021-09-16 17:29 | Post Operative Brief Note ---
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 I identified the patient and participated in the time-out.: Yes Procedure Operation Date: 09/16/21 11:35 Actual Procedures p Right ankle removal external fixator(Right) - Joel Desai DO s Removal of deep bone hardware lateral malleolus, Pantalar fusion with Synthes locking retrocalcaneal nail with application autograft, distal fibula and distal tibia autograft harvest(Right) - Joel Desai DO Surgeon Joel Desai DO Staff Nurse Midwife Germain Greene PA-C Estimated Blood Loss 100 Findings Consistent with Post-Op Diagnosis Anesthesia Type General Regional Complications none Disposition Accompanied Patient To Recovery: No
[2021-09-16] MEDS ORDERED: SUGAMMADEX SODIUM 200 MG/2 ML VIAL IV ONE (17:39)
[2021-09-16] MEDS ORDERED: PROMETHAZINE HCL 6.25 MG in SODIUM CHLORIDE 0.9% 50 ML IV STA (18:07)
[2021-09-16] MEDS ORDERED: PROMETHAZINE HCL INJ 25 MG/ML 1 ML VIAL ONE (18:08)
[2021-09-16] MEDS ORDERED: SODIUM CHLORIDE 0.9% 50 ML BAG ONE (18:08)
--- NOTE | 2021-09-16 18:09 | Anesthesiology Progress Note ---
Date of Service September 16, 2021 Anesthesia Post Procedure Vital Signs Vital Signs: Temp Pulse Pulse Resp BP Pulse Ox 09/16/21 18:00 77 20 123/61 94 09/16/21 17:50 79 24 153/53 H 94 09/16/21 17:40 84 24 145/73 H 95 09/16/21 17:33 36.5 C 85 23 173/81 H 92 09/16/21 09:28 36.9 C 74 22 121/50 L 94 Transfer of Care Handoff Completed per policy Notes Mental Status: alert / awake / arousable and participated in evaluation Patient Amnestic to Procedure: Yes Nausea / Vomiting: improving with treatment Pain: adequately controlled Airway Patency, RR, SpO2: stable & adequate BP & HR: stable & adequate Hydration State: stable & adequate Anesthetic Complications: no major complications apparent and Pt Satisfied with anesthetic care
[2021-09-16] MEDS ORDERED: diphenhydrAMINE Capsule 25 MG CAP PO PRN (18:32)
[2021-09-16] MEDS ORDERED: bisacodyL 10 MG SUPP PR PRN (18:32)
[2021-09-16] MEDS ORDERED: METOCLOPRAMIDE HCL INJ 5 MG/ML 2 ML VIAL IV PRN (18:32)
[2021-09-16] MEDS ORDERED: NO NSAIDS SCH (18:32)
[2021-09-16] MEDS ORDERED: hydrOXYzine HCl 25 MG TAB PO PRN (18:32)
[2021-09-16] MEDS ORDERED: PROCHLORPERAZINE MALEATE 10 MG TAB PO PRN (18:32)
[2021-09-16] MEDS ORDERED: MAGNESIUM HYDROXIDE SUSP 30 ML UDC PO PRN (18:32)
[2021-09-16] MEDS ORDERED: HYDROmorphone INJ 0.5 MG/0.5 ML SYR IV PRN (18:32)
[2021-09-16] MEDS ORDERED: ONDANSETRON INJ 2 MG/ML 2 ML VIAL IV PRN (18:32)
[2021-09-16] MEDS ORDERED: LORazepam 0.5 MG TAB PO PRN (18:32)
[2021-09-16] MEDS ORDERED: NALOXONE HCL 0.4 MG/1 ML VIAL/CARP IV PRN (18:32)
[2021-09-16] MEDS ORDERED: ALUMINUM/MAGNESIUM SUSP 30 ML UDC PO PRN (18:32)
--- NOTE | 2021-09-16 18:36 | XRay Report ---
XR ankle RT min 3V routine CLINICAL HISTORY: Postop right ankle TECHNIQUE: 3 views of the right ankle were obtained. Comparison: Comparison is made to ankle radiograph 06/22/2021 and ankle fluoroscopy 09/16/2021 FINDINGS: Postsurgical changes are seen of open reduction internal fixation of the calcaneus and tibia. Overlyi ng cast limits evaluation of fine bony detail. The alignment is anatomic.. IMPRESSION: Postsurgical appearance status post fariba fixation of the tibia and calcaneus. ACT 112: Negative or not required by law. Electronically signed by: Nguyễn Solitario M.D. 09/16/2021 6:35 PM
[2021-09-16] MEDS ORDERED: ACETAMINOPHEN 500 MG TAB PO PRN (18:40)
--- NOTE | 2021-09-16 19:33 | Hospitalist Consultation ---
Date of Consultation September 16, 2021 Assessment & Plan (1) Status post hardware removal: 61 y/o F w/ PMHx of DM2, PE, LIMA, migraine, anemia, and R ankle dislocation /p open reduction and external fixation in May 2021 who presented this admission for removal of external fixator and related procedures. procedures per ortho 09/16/21: primary: Right ankle removal external fixator. secondary: Removal of deep bone hardware lateral malleolus, Pantalar fusion with Synthes locking retrocalcaneal nail with application autograft, distal fibula and distal tibia autograft harvest. XR R ankle s/p hardware removal: Postsurgical changes are seen of open reduction internal fixation of the calcaneus and tibia. Overlying cast limits evaluation of fine bony detail. The alignment is anatomic.. - tylenol 1000mg PO q6h PRN and oxycodone 5-10mg PO Q4H PRN for pain. Zofran, Compazine, Reglan PRN for nausea. - supp O2 after postop, will wean as tolerated during day. - PT/OT evals pending - check BMP and CBC in AM - dispo: per ortho (2) Diet-controlled type 2 diabetes mellitus: - at goal, A1 5.6 06/2021. Repeat A1c in AM. not on medications. (3) Benign essential hypertension: - stable, continue home propranalol 240 qam (4) Migraine: - continue home amitryptyline 50 qhs. home nurtec 75 qhs prn but does not have with her. (5) Anxiety: depression/anxiety - continue home citalopram 40 qpm and buspar 10 TID -Continue home Ativan PRN anxiety - continue home hydroxyzine 50 mg qhs PRNs (6) Pulmonary embolism: - continue home Xarelto 20 - to resume tomorrow - hx of hypercoagulable (7) Sleep apnea: - not on cpap. states machine at home uncomfortable, needs adjustment. does not want cpap while inpatient. (8) Asthma: - stable, not on inhalers (9) Morbid obesity with BMI of 60.0-69.9, adult: - has bariatric bed at home FEN: regular code: full anticoag: home Xarelto dispo: med/surg Supervising Physician Co-Signing Physician Notes Patient seen and examined, chart reviewed, case discussed with Dr. Mayen and I agree with the assessment and plan as above. In brief, patient is a 61yo female s/p removal of right ankle external fixator, plantar fusion performed by Dr. Desai. Well tolerated, no complications. Patient is comfortable. Complaining of feeling anxious, otherwise doing well Exam afebrile, HD stable, NAD RLE with dressing/wrapping in place HEENT - NC/AT, PERRL, MMM, Neck supple Heart +S1/S2, 2/6 JOHN PAUL Lungs CTA anteriorly Abd - +BS, soft, NT/ND Ext - NV intact Labs and images reviewed Assessment/Plan -pain control, anti-emetics and bowel regimen per primary team -PT/OT today -Resume home medications for managemetn of anxiety/depression and BP -Xarelto to resume at discretion of surgery team -Remainder as above History of Present Illness Reason for Consultation: medical management postop Requesting Physician: Germain Greene PA-C Attending Physician: Joel Desai, History of Present Illness 61 y/o F w/ PMHx of DM2, PE, LIMA, migraine, anemia, and R ankle dislocation s/p open reduction and external fixation in May 2021 who presented this admission for removal of external fixator and related procedures. She states home had been well. She had been using the bariatric bed and was non-weight bearing. Denies pain at her R ankle. Occasional paresthesias. She worked with home PT until 2-3 weeks ago. Patient was seen after the procedure. She denies any new complaints. Patient states she has adequate support at home (). Allergies Allergy/AdvReac Type Severity Reaction Status Date / Time iron AdvReac Unknown Does not Verified 09/16/21 09:40 tolerate oral (tolerates infusion) Home Medications Medication Instructions Recorded Confirmed Type magnesium 250 mg tablet 250 mg PO QAM 02/24/19 09/16/21 History multivitamin (Daily Multi-Vitamin) 1 tab PO QAM 02/24/19 09/16/21 History cyanocobalamin (vitamin B-12) 1,000 mcg PO TU@09 tab 03/19/19 09/16/21 History 1,000 mcg tablet rimegepant 75 mg disintegrating 75 mg PO DAILY PRN #8 tab 02/28/21 09/16/21 Rx tablet (Nurtec ODT) amitriptyline 25 mg tablet 50 mg PO HS 05/18/21 09/16/21 History lorazepam 0.5 mg tablet 0.5 mg PO TID PRN 14 Days #42 tab 05/18/21 09/16/21 Rx prochlorperazine maleate 10 mg 10 mg PO Q6H PRN 05/18/21 09/16/21 History tablet (Compazine) propranolol 160 mg capsule,24 160 mg PO QAM 05/18/21 09/16/21 History hr,extended release propranolol 60 mg capsule,24 60 mg PO QAM 05/18/21 09/16/21 History hr,extended release rivaroxaban 20 mg tablet (Xarelto) 20 mg PO HS 05/18/21 09/16/21 History citalopram 40 mg tablet 40 mg PO QPM #90 tab 06/20/21 09/16/21 Rx buspirone 10 mg tablet 10 mg PO TID #180 tab 06/29/21 09/16/21 Rx Bed Side Commode #1 ea 07/06/21 09/08/21 Rx miscellaneous medical supply 1 ea MISCELLANEOUS .COMPLEX #1 ea 07/06/21 09/16/21 Rx hydroxyzine HCl 50 mg tablet 50 mg PO HS PRN #30 tab 08/24/21 09/16/21 Rx acetaminophen 500 mg tablet 1,000 mg PO Q6H PRN 08/26/21 09/16/21 History ergocalciferol (vitamin D2) 1,250 1,250 mcg PO TU@09 09/16/21 09/16/21 History mcg (50,000 unit) capsule Patient History Medical History (Updated 09/16/21 @ 19:49 by Ric Mayen MD) Anemia Ankle dislocation Anxiety Asthma controlled, stable per pt; last used rescue inhaler several yrs ago Benign essential hypertension controlled, stable per pt Depression Endometriosis hx Esophageal reflux Hereditary coagulation factor deficiency Hx of migraines Lupus anticoagulant disorder Mgr NOS wo ntrc w st mgr (10/15/11) Migraine Mitral valve disease PROLAPSE-NO CARDIOLOGY-NO DENTAL PREMED Morbid obesity with BMI of 60.0-69.9, adult Open fracture HX-RIGHT ANKLE Prothrombin gene mutation Pulmonary embolism HX-15 YRS AGO-DX'D LUPUS ANTICOAGULANT DISORDER-ON BLOOD THINNER SINCE Pulmonary nodules UNDER OBSERVATION Pure hypercholesterolemia Per records, pt denies Rosacea Sleep apnea Non-compliant with CPAP-"MASK MAKES ME GET MIGRAINES" Venous insufficiency Vertigo hx Vitamin B12 deficiency Surgical History (Updated 09/16/21 @ 19:45 by Ric Mayen MD) H/O wrist surgery History of ankle surgery EXTERNAL FIXATOR PLACED 05/20/2021: Grade 4 view, MAC#3, ETT#7.5. No issues per anesthesia postop progress note. History of colonoscopy History of cystoscopy with stent History of esophagogastroduodenoscopy (EGD) History of kidney surgery History of lithotripsy History of open reduction and internal fixation (ORIF) procedure RIGHT ANKLE I&D, wound dehiscence 06/03/2021: Grade 1 view, Glidescope #3, ETT#7.0 + PNB. Hx of hysterectomy [place] and [place] Family History Sister Brain tumor Cancer Thyroid disease Father Heart disease Myocardial infarction Mother Thyroid disease Family/Other Hypertension Grandmother (Paternal) Diabetes Other Gallbladder disease Lung disease Seizure Denies family history of Ovarian cancer Prostate cancer Breast cancer Colorectal cancer Social History Smoking Status: Never smoker Second Hand Exposure: Yes ( A CHILD); Do You Dip or Chew Tobacco: No; Hx Alcohol Use: No Hx Substance Use: No Preferred Language: Yakut Communication Ability: Effective Visual Impairment: No Limitations Hearing Ability: Normal Environmental Tech Required: No Beliefs That Will Affect Care: None marital status: Current Living Situation: Spouse and Family Current Living Situation Comment: LIVES WITH SPOUSE, SON current occupational status: unemployed current occupation: HOMEMAKER How many Children do You have: 3 Other Information That Helps Us Care for You: No Feels Safe at Home: Yes Safety Concerns: Feels Safe At This Time Childhood Exposure to Second-Hand Smoke: Yes Dental Care, Regularly: Yes Physical Activity Frequency: 3-4 Times per Week Seatbelt Use: always Sunscreen Use: Yes Assistive Devices: None Review of Systems Review of Systems: All systems reviewed & are unremarkable except as noted in HPI & below Physical Exam Physical Exam: General: Grossly A&O. NAD. Cooperative. HEENT: Atraumatic, normocephalic. EOMI. PERRL. Pulm: CTAB anteriorly. -wheezes, -rales, -rhonchi. + end expiratory sighing. No respiratory distress. Cardiac: RRR. 2/6 systolic murmur at pulmonic region. No pitting edema of L ankle, puffy appearance. Abdominal: Nontender, nondistended, soft. Integ: Mild flaking at L enriquez. Msk: R ankle/foot wrapped. Neuro: Sensation of toes intact. Wiggling toes. Results & Data Results & Data ([facility]) Vital Signs (Past 12 Hours) Vital Signs vitals reviewed. 97-98% on 4L nasal cannula Temp Pulse Pulse Resp BP Pulse Ox 09/16/21 19:00 36.5 C 67 18 115/67 97 09/16/21 18:30 36.7 C 66 16 102/67 95 09/16/21 18:20 69 24 113/56 L 96 09/16/21 18:10 36.9 C 70 22 105/67 94 09/16/21 18:00 77 20 123/61 94 09/16/21 17:50 79 24 153/53 H 94 09/16/21 17:40 84 24 145/73 H 95 09/16/21 17:33 36.5 C 85 23 173/81 H 92 09/16/21 09:28 36.9 C 74 22 121/50 L 94 Laboratory Results No labs performed. Intake and Output 09/16/21 09/16/21 09/16/21 06:59 14:59 22:59 Intake Total 0 / 300 300 / 300 Output Total 100 / 100 Balance 0 / 200 200 / 200 Intake: IV 0 / 0 Lactated Ringer's 1,000 ml @ 15 0 / 0 mls/hr IV .Q24H [facility] Rx#: [id number] IV Perioperative 300 / 300 Output: Estimated Blood Loss 100 / 100 Other: Weight 140.478 kg Weight Measurement Method Built in [facility] Patient Weight 09/17/21 06:59 Weight 140.478 kg Diagnostic Findings Ankle X-Ray 09/16/21 09:15 FL ankle RT min 3V RTN CLINICAL HISTORY: RT REMOVAL EX/ FIX ORIF TECHNIQUE: 2 views were obtained with the C-arm in the OR with the above procedure. Total fluoroscopy time was 127.2 seconds. Total skin dose was 3.29 mGy. Comparison: Comparison is made to right ankle radiographs 06/22/2021 FINDINGS/IMPRESSION: Intraoperative images were obtained of open reduction internal fixation of right ankle fractures. Please correlate with intraoperative fluoroscopy and operative report. ACT 112: Negative or not required by law. Electronically signed by: Nguyễn Solitario M.D. 09/16/2021 5:02 PM Ankle X-Ray 09/16/21 17:41 XR ankle RT min 3V routine CLINICAL HISTORY: Postop right ankle TECHNIQUE: 3 views of the right ankle were obtained. Comparison: Comparison is made to ankle radiograph 06/22/2021 and ankle fluoroscopy 09/16/2021 FINDINGS: Postsurgical changes are seen of open reduction internal fixation of the calcaneus and tibia. Overlying cast limits evaluation of fine bony detail. The alignment is anatomic.. IMPRESSION: Postsurgical appearance status post fariba fixation of the tibia and calcaneus. ACT 112: Negative or not required by law. Electronically signed by: Nguyễn Solitario M.D. 09/16/2021 6:35 PM Resident Activity Tracking Resident Involvement: Resident Care Provided Care Provided: [facility] Medicine
[2021-09-16] MEDS ORDERED: AMITRIPTYLINE HCL 50 MG TAB PO SCH (21:00)
[2021-09-16] MEDS ORDERED: SENNA 8.6 MG TAB PO SCH (21:00)
[2021-09-16] MEDS ORDERED: CITALOPRAM 40 MG TAB PO SCH (21:00)
[2021-09-16] MEDS: busPIRone 5 MG TAB PO SCH (22:19)
[2021-09-16] MEDS: ceFAZolin 2000MG 2,000 MG/15 ML SYR IV SCH (22:19)
[2021-09-16] MEDS: DOCUSATE SODIUM 100 MG CAP PO SCH (22:21)
[2021-09-17] MEDS: oxyCODONE HCL IR 5 MG TAB (IMMEDIATE RELEASE) PO PRN ×3 (01:36→13:55)
[2021-09-17 02:51] VITALS: O2SAT 100
--- NOTE | 2021-09-17 04:13 | Operative Report (OR) ---
DATE OF PROCEDURE: 09/16/2021. PREOPERATIVE DIAGNOSES: 1. Right closed displaced fracture, lateral malleolus with nonunion. 2. Retained deep hardware in the lateral malleolus. 3. Retained external fixator, right lower extremity. 4. Osteoarthritis of the ankle. 5. Osteoarthritis of subtalar joint. 6. Sequelae of ankle dislocation. POSTOPERATIVE DIAGNOSES: 1. Right closed displaced fracture, lateral malleolus with nonunion. 2. Retained deep hardware in the lateral malleolus. 3. Retained external fixator, right lower extremity. 4. Osteoarthritis of the ankle. 5. Osteoarthritis of subtalar joint. 6. Sequelae of ankle dislocation. PROCEDURE: 1. Right ankle removal of external fixator. 2. Pantalar fusion with Synthes retrocalcaneal nail and autograft. 3. Removal of deep bone hardware, lateral malleolus. 4. Autograft harvest from the distal tibia and fibula. SURGEON: Joel Desai DO WHITE LEAD FILTERER: Germain Greene PA-C who was present for patient positioning, sterile prep and drap e, management of retractors and instruments. He was present through the critical portions of the case including wound closure, application of sterile dressing and transport of the patient to recovery. ANESTHESIA: General, regional. SPECIMENS: External fixator. DRAINS: None. COMPLICATIONS: None. BLOOD LOSS: 100 mL. PERTINENT HISTORY: This is a 61-year-old female who initially had a twisting injury necessitating OR IF of her syndesmosis. Inadvertently, the patient was putting weight on the ankle and fractured her lateral malleolus through the plate as placed by Dr. Patel and dislodged the hardware for her synde smotic repair. The patient was then noted to have wound complications, both medial and lateral aspec ts of the ankle, which necessitated urgent removal of the hardware with irrigation and debridement of the areas of wound compromise with application of an external fixator to stabilize the right ankle t ibiotalar dislocation. A deep K-wire was placed in the fibula to hold the lateral malleolus in place with limited fixation in the face of impending wound complications and possible infection. The dawson ent is not on any antibiotics and she was made nonweightbearing for several weeks until soft tissue w as stabilized. Once soft tissue was stabilized, the patient was then scheduled for removal of the ex ternal fixator, the lateral malleolar deep bone hardware and then pantalar fusion as the sequela of d islocation and subluxation and the nature and severity of the injury necessitated fusion due to early posttraumatic arthritis. All potential risks, benefits, complications, alternatives, rehab potentia l for incomplete relief of symptoms, need for further surgery, DVT, PE, , persistent pain, swell ing, scarring, weakness, neurovascular injury, wound complications, hardware failure, nonunion, malun ion, bone fracture were discussed with the patient. The patient decided to proceed with the procedur e as indicated. DESCRIPTION OF PROCEDURE: The patient had a regional anesthetic performed by the anesthesiologist. After review of consent and identification of proper operative site, the patient was taken to the ope rative suite and placed supine on the table. After review of the proper operative site, the patient was anesthetized, LMA was placed. Tourniquet was applied high on the right thigh over cast padding. After surgical timeout was performed, the external fixator was removed. The right lower extremity w as then sterilely prepped and draped in the usual fashion. Next, the limb was then elevated and exsa nguinated with an Esmarch bandage and tourniquet inflated to 350 mmHg. Surgical timeout was once again performed. The pin holes were then curetted with a small curette to encourage bony bleeding and tissue healing. Next, after this was completed, 15-blade scalpel was use d to make an incision centered over the sinus tarsi on the lateral aspect of the foot. The incision was deepened through skin and subcutaneous tissue. Meticulous hemostasis was achieved with electroca utery. Full thickness skin flaps were developed. Thomas rakes were applied to retract soft tissue. T he extensor digitorum brevis was then elevated and retracted and protected with a Weitlaner and the s inus tarsi was then entered with a 15-blade scalpel. Next, sinus tarsi was then carefully prepared u sing a curette, rongeur, and osteotome and mallet. The site was copiously irrigated with sterile antonio ine until clear. After the site was fully prepped and denuded of any residual articular cartilage wh ich was limited, there was noted to be partial autofusion of the subtalar joint due to the nature of the injury. Next, a high speed bur was then used to create further bone graft at the site for fusion . Next, attention was directed toward the anterior aspect of the ankle joint. A 15-blade scalpel was u sed to make an anterior incision over the tibiotalar joint. The incision was deepened through skin a nd subcutaneous tissue. Meticulous hemostasis was achieved with electrocautery. Full thickness skin flaps were developed. The retinaculum was then incised along the skin incision followed by identifi cation of the extensor hallucis longus, which was then retracted laterally in addition to the neurova scular bundle which was then elevated and then retracted and protected with a house retractor. Next, the anterior joint capsule was then incised in line with skin incision with a 15-blade scalpel, elev ated both medially and laterally to visualize the severe posttraumatic arthrosis of the tibiotalar alfa int. Marked softening and dissolution of the articular cartilage was noted as anticipated. There was delamination of both the tibial and talar articular surfaces. Next, the rongeur, curette, and osteotome were used to denude any articular cartilage from the bone down to subchondral bleeding bone. A curette was then used to remove these fragments and this was copiously irrigated with steril e saline until clear. Next, the bones were then drilled with a small drill bit and then fish scaled with a 6 mm osteotome and mallet. A bur was then used to create further bone graft at the site and t hen attention was then directed toward the lateral malleolus. The pin noted deep within the bone was then removed with a heavy needle truck driver supervisor and then through the anterior incision, careful dissection w as performed down to the level of the fibula. A Govea retractor was placed around the distal fibul a and the distal fibula was then sharply excised through the anterior incision to avoid any approach from the lateral aspect due to wound compromise from the initial injury. The fragments of bone were then harvested and saved for later use as autograft. Next, after the joint surfaces had been previously prepared, under live fluoroscopic assistance, a st ab incision was made in the plantar aspect of the heel and then a guide pin was placed through the ca lcaneus, through the talus, and into the distal tibia. Next, initial reaming was then performed of the calcaneus and talus and then the guide pin was removed and then a 5.5 mm drill bit was then place d through the plantar incision through the calcaneus and talus into the distal aspect of the tibia un marcus live fluoroscopic assistance. The starting point for the reaming fariba was then placed in the cent er-center position of the tibia and reaming fariba was then placed into the center aspect of the tibia t hrough the plantar aspect of the heel. Next, sequential reaming was performed up to 11.5 mm in diameter to approximate length of nail of 190 mm to accommodate a 180 mm Synthes retrocalcaneal nail, which was then impacted in place under live fluoroscopic assistance using a driving cap. Once the nail was in place, the alignment jig was appli ed and then the posterior spiral blade was placed through a stab incision into the posterior heel ove r a cannulated guide pin under live fluoroscopic assistance. A 60 mm spiral blade was impacted into the posterior aspect of the calcaneus and countersunk approximately 4-5 mm under live fluoroscopic as sistance. A second 65 mm locking screw was placed through a small percutaneous incision into the pos terior aspect of the calcaneus under live fluoroscopic assistance. Next, the nail was then impacted to compress the subtalar joint after autograft derived from distal fibula and through the distal tibi a was then impacted into the subtalar joint and also into the tibiotalar joint. Next, the backslapping was performed with the driving cap in place and then the talar locking screw w as placed through a small percutaneous stab incision in the posterolateral aspect of the ankle under live fluoroscopic assistance. Appropriate length titanium screw was used to lock the talus component in place and then a second backslapping was then performed to compress the tibiotalar joint and the bone graft of the autograft that was placed previously. Next, two stab incisions, the medial locking screws were placed, one static, one dynamic through small percutaneous stab incisions in the medial tibia under live fluoroscopic assistance. After the locking screws were placed, final radiographs we re obtained in AP and lateral projections, noting stable pantalar fusion with removal of the deep bon e hardware from the lateral malleolus. Next, the final irrigation was performed on both incisions. The bone graft was impacted in place on the tibiotalar joint and subtalar joint using a large bone tamp and mallet followed by closure of the fascia of the extensor digitorum brevis with a 2-0 Vicryl and closure of the anterior joint capsule with a 2-0 Vicryl. The dorsal anterior retinaculum was closed using interrupted 2-0 Vicryl. The marcus mis was closed using buried interrupted 3-0 Vicryl, both lateral and anterior incisions. The skin wa s closed using 4-0 nylon sutures. The plantar end cap was engaged through the nail and then the site was irrigated on the plantar aspect of the heel and then closed using a combination of 2-0 Vicryl an d 4-0 nylon sutures. The posterior stab incisions were closed using skin keila. The medial lockin g screw sites were closed using skin keila. Next, a sterile compressive dressing was applied overw rapped with a bulky Tristin Chavarria plaster splint. The tourniquet was released. Normal hyperemic resp onse turned to the toes. The patient was awakened and taken to recovery in stable condition. Job ID: [id number]
[2021-09-17] MEDS: ceFAZolin 2000MG 2,000 MG/15 ML SYR IV SCH (05:07)
[2021-09-17 06:44] LABS: Hematocrit (blood only) 34.4 % (37-47); Hemoglobin 10.8 g/dL (12.0-16.0); Mean Corpuscular Hgb Conc 31.4 g/dL (32-36); Mean Platelet Volume 8.9 fL (7.4-10.4); Platelet Count 200 K/uL (130-400); RDW Coefficient of Variation 15.8 % (11.5-14.5); RDW Standard Deviation 49.6 fL (36.4-46.3); White Blood Count 9.71 K/uL (4.8-10.8)
[2021-09-17 06:46] LABS: BUN Creatinine Ratio 18.4 (10-20); Calcium 8.8 mg/dl (8.5-10.1); Creatinine Clr Calc Pharmacy 158.3 ml/min; Est GFR (African American) 122.7 ml/min; Est GFR (Non-African American) 105.9 ml/min; Potassium 4.6 mmol/L (3.5-5.1)
--- NOTE | 2021-09-17 06:49 | Orthopedic Progress Note ---
Date of Service September 17, 2021 Assessment & Plan (1) Status post hardware removal: Plan: POD #1 s/p Right ankle removal external fixator, Removal of deep bone hardware lateral malleolus, Pantalar fusion with Synthes locking retrocalcaneal nail with application autograft, distal fibula and distal tibia autograft harvest PT/OT today patient would like to go home today with HHPT, states she has all of her DME at home already, hosp bed and would like to go home. will see how she performs with PT/OT today NWB right leg resume Xarelto this evening Admission and Anticipated Discharge Date Admission Date: September 16, 2021 Subjective POD #1 s/p Right ankle removal external fixator, Removal of deep bone hardware lateral malleolus, Pantalar fusion with Synthes locking retrocalcaneal nail with application autograft, distal fibula and distal tibia autograft harvest Review of Systems Constitutional: no fever and no chills Respiratory: no cough and no dyspnea Cardiovascular: no chest pain and no dyspnea Gastrointestinal: no abdominal pain, no nausea and no vomiting Physical Exam Physical Exam: Vital Signs Temp 36.5 C 09/17/21 02:50 Pulse 71 09/17/21 02:50 Resp 19 09/17/21 02:50 BP 130/76 09/17/21 02:50 Pulse Ox 100 09/17/21 02:50 Intake & Output 09/16/21 09/16/21 09/17/21 06:59 18:59 06:59 Intake Total 300 / 350.25 50.25 / 350.25 Output Total 100 / 400 300 / 400 Balance 200 / -49.75 -249.75 / -49.75 Weight 140.478 kg Intake: IV 0 / 50.25 50.25 / 50.25 Lactated Ringe r's 1,000 ml @ 15 0 / 0 mls/hr IV .Q24 H GEENA Rx#: [id number] Promethazine H Cl 6.25 mg In 50.25 / 50.25 Sodium Chlorid e 0.9% 50 ml @ 201 mls/hr IV NOW STA Rx#: [id number] IV Perioperative 300 / 300 Output: Urine 300 / 300 Estimated Blood Loss 100 / 100 Other: # Unmeasured Voi ds 1 Weight Measureme nt Method [facility] Constitutional: WD/WN, vitals as above Musculoskeletal: Ankle: + ankle abnormal to inspection (dressing clean and dry, able to wiggle toes. sensation intact to light touc) Results & Data ([facility]) Vital Signs (Past 12 Hours) Vital Signs Temp Pulse Resp BP Pulse Ox 09/17/21 02:50 36.5 C 71 19 130/76 100 09/16/21 21:30 36.6 C 65 18 117/73 97 09/16/21 20:30 71 18 111/67 98 09/16/21 19:30 69 18 105/61 98 09/16/21 19:00 36.5 C 67 18 115/67 97
--- NOTE | 2021-09-17 06:51 | Billing Data ---
Date of Service September 16, 2021 Coding Level of Care Code 45242 Inpt Consult Level 3
[2021-09-17 07:23] LABS: Estimated Average Glucose 120 mg/dl; Hemoglobin A1C 5.8 % (4.5-5.6)
[2021-09-17 08:26] VITALS: BP 151/77; PULSE 80; TEMP 98.6
[2021-09-17] MEDS: DOCUSATE SODIUM 100 MG CAP PO SCH (08:39)
[2021-09-17] MEDS: busPIRone 5 MG TAB PO SCH ×2 (08:39→13:56)
[2021-09-17] MEDS ORDERED: [UNRECOGNIZED DRUG - OTHER] SCH (09:00)
[2021-09-17] MEDS ORDERED: MULTIVITAMIN TAB PO SCH (09:00)
[2021-09-17] MEDS ORDERED: MAGNESIUM OXIDE 400 MG TAB PO SCH (09:00)
[2021-09-17] MEDS ORDERED: PROPRANOLOL HCL 60 MG LA CAP PO SCH (09:00)
[2021-09-17] MEDS ORDERED: PROPRANOLOL HCL LA 80 MG CAPCR PO SCH (09:00)
[2021-09-17] MEDS ORDERED: CYANOCOBALAMIN (B-12) 500 MCG TABLET PO SCH (09:00)
[2021-09-17] MEDS ORDERED: RIVAROXABAN 20 MG TAB PO SCH (21:00)
[2021-09-20] MEDS ORDERED: ERGOCALCIFEROL 50,000 UNITS 1250 MCG CAP PO SCH (09:00)
--- NOTE | 2021-09-23 10:32 | Discharge Summary ---
Date of Service September 23, 2021 Admission HPI Per Admitting Provider This is a patient who had a syndesmotic injury a few months ago. She underwent surgery with a tight rope type mechanism but sustained a fall and fractured the lateral malleolus below the plate. She had a fracture dislocation of the ankle with wounds at the medial and lateral ankle. She was taken to the OR for reduction and application of an external fixator. The wounds have now healed and she is being set up for surgical management. Principal Diagnosis Right ankle fibular nonunion, traumatic ankle arthritis Discharge Exam Constitutional well developed, well nourished and + morbidly obese; no acute distress ENMT external ear and nose normal, oropharynx normal Neck trachea midline Respiratory normal respiratory effort, lungs clear to auscultation Cardiovascular Rate/Rhythm: regular rate and regular rhythm Gastrointestinal (Abdomen) normal bowel sounds, soft, nontender, no hepatosplenomegaly Musculoskeletal Ankle: + surgical incision (Right ankle splint C/D/I) and + limited ROM of ankle (Right ankle pantalar fusion); no skin erythema Skin no rashes, warm and dry Neurologic normal touch/pain/proprioception Psychiatric A+Ox3, euthymic affect Speech: normal rate/rhythm/volume of speech Lymphatic no cervical or axillary lymphadenopathy Discharge Data Allergies Allergy/AdvReac Type Severity Reaction Status Date / Time iron AdvReac Unknown Does not Verified 09/16/21 09:40 tolerate oral (tolerates infusion) Consultations 09/16/21 18:32 Consult Hospitalist Routine Procedures Performed Operation Date: 09/16/21 11:35 Actual Procedures p Right ankle removal external fixator(Right) - Joel Broderick DO s Pantalar fusion with retrocalcaneal nail with autograft distal fibula autograft harvest(Right) - Joel Broderick DO Ordered Studies 09/16/21 05:00 US - OR guided needle placemen Routine 09/16/21 09:15 FL ankle RT min 3V RTN Routine Hospital Course (1) Status post hardware removal: POD #1 s/p Right ankle removal external fixator, Removal of deep bone hardware lateral malleolus, Pantalar fusion with Synthes locking retrocalcaneal nail with application autograft, distal fibula and distal tibia autograft harvest PT/OT today patient would like to go home today with HHPT, states she has all of her DME at home already, hosp bed and would like to go home. will see how she performs with PT/OT today NWB right leg resume Xarelto this evening Total Time Total Time Spent Total Time Spent (In Minutes): 30 Discharge Plan Discharge Items Patient Disposition: Home - Home Health Services Reason For Visit: Primary Osteoarthritis, fracture of Upper and [place] Discharge Diagnosis: Right ankle nonunion fibula, traumatic arthritis ankle joint Activity: Per Instructions section Weightbearing: Right non-weightbearing Non-emergency contact: Surgeon Call non-emergency contact if: your pain is not controlled, your pain is worsening and your temperature is above 101 Follow-up/Referrals: Bradley Muse III, CRNP [Primary Care Provider] - Diet: Carb Consistent or DM2 Addtl Attending Provider Instructions: ACTIVITY RECOMMENDATIONS: Limitations: No weight bearing to affected limb at all times. SPECIAL CARE INSTRUCTIONS: * Restart Xarelto for postoperative blood clot prophylaxis. * Some drainage onto the dressing is normal and is no cause for alarm. * Some swelling is natural especially after walking. * When resting, keep your foot elevated above the level of your heart. * Call [facility] if you notice: -Increased drainage -Fever over 101 degrees F -Severe constant pain BANDAGE: * Leave bandage/cast in place unless otherwise directed. * Keep bandage/cast dry at all times. FOLLOW UP VISIT WITH DR. BRODERICK If appointment is not already scheduled: Please call [facility] after you get home today to schedule a follow-up appointment for [address] Broderick at . Pending Studies at Discharge: No Stand-Alone Forms: My [facility], Smoking Cessation Medications and DC Order Prescriptions: New oxycodone 5 mg Tablet 5 - 10 mg PO Q6H PRN (Reason: pain) Qty: 30 RF: 0 docusate sodium 100 mg Capsule 100 mg PO BID 10 Days Qty: 20 RF: 0 Continued Nurtec ODT 75 mg tablet,disintegrating 75 mg PO DAILY PRN (Reason: migraine headache) Qty: 8 RF: 5 citalopram 40 mg tablet 40 mg PO QPM Qty: 90 RF: 1 buspirone 10 mg tablet 10 mg PO TID Qty: 180 RF: 3 (DME) Bed Side Commode Misc See Rx Instructions .Route Qty: 1 RF: 0 miscellaneous medical supply Misc 1 ea miscellaneous .COMPLEX Qty: 1 RF: 0 hydroxyzine HCl 50 mg tablet 50 mg PO HS PRN (Reason: anxiety) Qty: 30 RF: 3 multivitamin [Daily Multi-Vitamin] tablet 1 tab PO QAM RF: 0 magnesium 250 mg tablet 250 mg PO QAM RF: 0 cyanocobalamin (vitamin B-12) 1,000 mcg tablet 1,000 mcg PO TU@09 RF: 0 propranolol 160 mg capsule,extended release 24 hr 160 mg PO QAM RF: 0 propranolol 60 mg capsule,extended release 24 hr 60 mg PO QAM RF: 0 prochlorperazine maleate [Compazine] 10 mg tablet 10 mg PO Q6H PRN (Reason: nausea/ migraine headache) RF: 0 amitriptyline 25 mg tablet 50 mg PO HS RF: 0 Xarelto 20 mg tablet 20 mg PO HS RF: 0 acetaminophen 500 mg Tablet 1,000 mg PO Q6H PRN (Reason: Pain) RF: 0 ergocalciferol (vitamin D2) 1,250 mcg (50,000 unit) Capsule 1,250 mcg PO TU@09 RF: 0 No Action lorazepam 0.5 mg tablet 0.5 mg PO TID PRN (Reason: anxiety) 14 Days Qty: 42 RF: 0 Discharge Orders: Discharge Order (Routine); Ordered 09/17/21 Ordered By: Kraig Booth Admission Data Admit Date/Time: 09/16/21 14:09 Attending Provider: Joel Broderick Admit Provider: Joel Broderick Primary Care Provider: Bradley Muse III Other Providers: Daniel Jefferson ; Kia Carreon ; Neil Smith ; Kalin Colmenares Jeffrey W. ; Marychuy Dong V. ; Elsa Anna ; Tristin Power ; Karl Jordan ; Sascha Gaxiola Peter W ; Claude Miranda ; Perri Balderas ; Rosalina Frank ; Merari Mitchell ; Ko Ochoa ; Claire Whitehead ; Roz Tang ; Lily Beasley ; Jamie Noel ; Pieter Grover ; Mikaela Song ; Manisha Ivan ; Vasquez Navarro ; Elsa Aponte ; Bhupendra Roca ; Danyell Pepper ; Geraldo Caruso ; Julio C Gage ; Jus Neff ; Shy Baeza ; Edilia Jordan ; Home Ordoñez ; Claire Resendiz ; Daniel Cee ; Gus Mancilla ; López Rodarte ; Jeffery Roy ; Robert Courtney ; [employer] ; [facility] Other Interventions: Discharge Summary Assessment (RN) Last Done: 09/17/21 14:00
== END 2021-09-17 16:15 | disposition home health service (06) | DRG 493 ==
LOC: ASU 08:13 → 3E 14:09
DX: X58.XXXA Exposure to other specified factors, initial encounter; I10 Essential (primary) hypertension; S82.61XA Displaced fracture of lateral malleolus of right fibula, initial encounter for closed fracture; G43.909 Migraine, unspecified, not intractable, without status migrainosus; F41.9 Anxiety disorder, unspecified; Z86.711 Personal history of pulmonary embolism; G47.30 Sleep apnea, unspecified; Z68.44 Body mass index [BMI] 60.0-69.9, adult; E11.9 Type 2 diabetes mellitus without complications; Z79.899 Other long term (current) drug therapy; S93.04XA Dislocation of right ankle joint, initial encounter; M19.171 Post-traumatic osteoarthritis, right ankle and foot; E66.01 Morbid (severe) obesity due to excess calories; F32.A Depression, unspecified; Z79.01 Long term (current) use of anticoagulants; J45.909 Unspecified asthma, uncomplicated; Z88.8 Allergy status to other drugs, medicaments and biological substances